=== PATIENT | male | born 1975 | race Caucasian/White ===

== ENCOUNTER 2021-03-15 19:27 | Outpatient (REF) | payer OTHER, SELFPAY ==
[2021-03-17 17:19] LABS: COVID-19 RT-PCR UVMMC Result Negative (Negative)
== END 2021-03-15 19:28 | disposition home or self-care (01) ==
LOC: LBN 19:27
PROVIDERS: PCP Family Medicine; Visit Provider Physician Assistant
DX: Z20.822 Contact with and (suspected) exposure to COVID-19 (principal)
CPT/HCPCS: U0003

== ENCOUNTER 2021-04-27 21:27 | Emergency (ER) | payer OTHER, SELFPAY ==
[2021-04-27 21:30] VITALS: BP 167/119; PULSE 111; RESP 20; TEMP 36; O2SAT 97
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
== END 2021-04-27 22:00 | disposition home or self-care (01) ==
PROVIDERS: Emergency Provider Physician Assistant; PCP Family Medicine
DX: S81.011A Laceration without foreign body, right knee, initial encounter (principal); W22.8XXA Striking against or struck by other objects, initial encounter
CPT/HCPCS: 99283

== ENCOUNTER 2021-05-01 11:16 | Outpatient (REF) | payer OTHER, SELFPAY | END 2021-05-01 11:17 | disposition home or self-care (01) | LOC: LBN 11:16 | PROVIDERS: PCP Family Medicine; Visit Provider Nurse Practitioner | DX: S81.811A Laceration without foreign body, right lower leg, initial encounter (principal); X58.XXXA Exposure to other specified factors, initial encounter | CPT/HCPCS: 87070; 87205 ==

== ENCOUNTER 2021-08-22 17:56 | Emergency (ER) | payer BC, SELFPAY ==
[2021-08-22 18:00] VITALS: BP 157/106; PULSE 99; RESP 16; TEMP 36.6; O2SAT 98
--- NOTE | 2021-08-22 18:19 | W.ED.GENAD ---
Discharge Plan Disposition Patient Disposition: HOME Condition: Improving Discharge Details Clinical Impression: Pain, dental Primary Care Provider: Celeste Christiansen ED Provider: Addison Vasquez Home Meds and New Rx's Prescriptions: Continued doxepin 10 mg capsule 10 mg PO QHS Qty: 90 3RF albuterol sulfate [Proventil HFA] 90 mcg/actuation HFA aerosol inhaler 2 puff IH Q6H PRN (Reason: shortness of breath or wheezing) Qty: 18 12RF bupropion HCl 150 mg tablet sustained-release 12 hr 150 mg PO BID Qty: 180 3RF buspirone 10 mg tablet 20 mg PO TID Qty: 540 3RF melatonin 1 mg Tablet 2 mg PO .QHS 0RF trazodone 50 mg tablet 12.5 mg PO DAILY 0RF Discharge Instructions Instructions: Toothache (ED) Additional Instructions: Please follow-up with your dentist otherwise attempt to make an appointment at [facility] phone number [phone], located at [address] [place] [address]; return to the emergency department if you develop severe swelling to your gumline, fevers chills or pus drainage from the mouth. Continue with Motrin Tylenol at home. Medical Decision Making 46-year-old male presents with atraumatic dental pain to tooth #1, right upper molar, over the past several days, nontoxic afebrile no evidence of periapical abscess or tooth fracture, likely small dental carry versus receding gingiva. Patient tolerating secretions normal voice nontoxic. Will attempt to find him a dental referral encouraged him to follow with his dentist at first availability. Will perform periapical block with bupivacaine for comfort this evening, 1 dose of Percocet here in the emergency department with Zofran encourage patient to use Motrin Tylenol at home. Return precautions given for signs of infection. 18: 32 patient resting comfortably no acute distress. Periapical block with approximately 3 cc of 0.5% bupivacaine. Home care instructions and return precautions given. HPI General Date/Time Provider Initiated Documentation: 08/22/21 18:08. HPI Narrative: 46-year-old male presents with several days of right upper molar discomfort, tenderness to palpation of the tooth and with chewing, denies ear or jaw pain. Denies fevers chills or swelling to the gumline. Has been trying to get into see his dentist Related Data Home Medications Medication Instructions Recorded Confirmed albuterol sulfate 90 mcg/actuation 2 puff IH Q6H PRN #18 gm 05/01/21 08/22/21 aerosol inhaler (Proventil HFA) doxepin 10 mg capsule 10 mg PO QHS #90 cap 05/01/21 08/22/21 bupropion HCl 150 mg tablet,12 hr 150 mg PO BID #180 tab 07/04/21 08/22/21 sustained-release buspirone 10 mg tablet 20 mg PO TID #540 tab 07/04/21 08/08/21 melatonin 1 mg tablet 2 mg PO .QHS 08/22/21 08/22/21 trazodone 50 mg tablet 12.5 mg PO DAILY 08/22/21 08/22/21 Previous Rx's Medication Instructions Recorded albuterol sulfate 90 mcg/actuation 2 puff IH Q6H PRN #18 gm 05/01/21 aerosol inhaler (Proventil HFA) doxepin 10 mg capsule 10 mg PO QHS #90 cap 05/01/21 bupropion HCl 150 mg tablet,12 hr 150 mg PO BID #180 tab 07/04/21 sustained-release buspirone 10 mg tablet 20 mg PO TID #540 tab 07/04/21 Allergies Allergy/AdvReac Type Severity Reaction Status Date / Time No Known Drug Allergies Allergy Verified 08/22/21 18:04 General Stated Complaint: DentalOral TANG: 4 Review of Systems Narrative: Review of Systems Constitutional: negative Eyes: negative ENT: Right upper molar pain Cardiovascular: negative Respiratory: negative Gastrointestinal: negative : negative Musculoskeletal: negative Skin: negative Neurologic: negative Psych: negative PFSH All Active Problems (Updated 08/22/21 @ 18:34 by Addison Vasquez MD) Pain, dental (Acute) Laceration (Acute) Cubital tunnel syndrome (Acute) Asthma (Chronic) Tobacco use disorder, continuous (Acute 06/17/17) Substance abuse (Acute 05/15/17) MICHELLE (generalized anxiety disorder) (Acute 05/15/17) Family history of breast cancer (Acute 06/04/17) Mother Essential hypertension (Acute 05/15/17) ETOH abuse (Acute 05/15/17) [facility] [place] 11/29/15-12/04/15 Attention deficit disorder (Acute 05/15/17) Medical History Alcohol dependence Alcohol use disorder Asthma Attention deficit disorder (ADD) in adult Cubital tunnel syndrome Family History Mother Depression Neoplasm Breast Father Alcohol abuse Essential hypertension Heart disease Brother Alcohol abuse Social History (Updated 08/08/21 @ 13:05 by Mariza Maldonado RN) Smoking/Tobacco Use Status: Current every day Tobacco Type: cigarettes and smokeless tobacco Tobacco: How many years used: 30 Smokeless tobacco user: chewing tobacco Quit status: considering quitting Smoking risk assessment performed?: Yes Alcohol Intake: current Alcohol Intake frequency: 0-2 drinks per day Alcohol type: beer Drug use: Occasionally Substance use type: marijuana Household members: significant other Housing: apartment Number of Children: 1 Communication Needs: None current occupation: [employer] Pets and animals: Yes Sexually active: Yes Do you think of yourself as: straight/heterosexual Current gender identity: male What is your relationship status?: living with partner Panel score (0-1 are the most socially isolated patients): 1 What type of physical activity do you participate in: other Details: Work Frequency: 5-6 times per week Seatbelt use: always Helmet use: Yes Helmet use: always Drive intox or ride w/intox local bulk driver: No Working smoke detector in home: Yes Fire extinguisher in home: Yes Carbon monox detector in home: Yes Do you feel safe at home: Yes Do you feel safe in your relationship?: Yes Exam Narrative Exam Narrative: Physical Examination General: alert, awake, cooperative, resting comfortably, no acute distress HEENT: Possible dental carry tooth #1, some receding gingiva at base of tooth, no periapical abscess or fracture noted; normocephalic, atraumatic; PERRL, EOM intact, conjunctiva normal; no nasal discharge; moist mucous membranes, oral and pharyngeal mucosa normal, tolerating secretions Neck: supple, trachea midline; full ROM Chest: normal to inspection Respiratory: normal respiratory effort, speaking in full sentences, clear to auscultation, no wheezing, rales or rhonchi Cardiac: regular rate, regular rhythm, S1S2 intact, no murmurs rubs or gallops GI: abdomen soft, non-tender, non-distended; no palpable mass or hepatosplenomegaly : Back: Skin: no lesions, rashes or trauma appreciated Neuro: AAOx3, normal speech, moving all extremities Extremities: Psych: Appropriate mood and affect Course Vital Signs Vital signs: Vital Signs Temperature 36.6 C 08/22/21 18:00 Pulse 99 H 08/22/21 18:00 Respiratory Rate 16 08/22/21 18:00 Blood Pressure 157/106 H 08/22/21 18:00 Pulse Oximetry 98 08/22/21 18:00 Temperature 36.6 C 08/22/21 18:00 Temperature Source Skin 08/22/21 18:00 Pulse 99 H 08/22/21 18:00 Respiratory Rate 16 08/22/21 18:00 Respiratory Effort 08/22/21 18:00 Blood Pressure 157/106 H 08/22/21 18:00 Blood Pressure Position Sitting 08/22/21 18:00 Pulse Oximetry 98 08/22/21 18:00 Oxygen Delivery Method Room Air 08/22/21 18:00 Oxygen Flow Rate 0 08/22/21 18:00 Pain Level 7 08/22/21 18:13 PAWSS Have you Been Recently Intoxicated or Drunk Within the Last 30 days?: Yes Have you Ever Experienced Previous Episodes of Alcohol Withdrawal?: Yes Have you ever Experienced Withdrawal Seizures?: No Have you ever Experienced Delirium Tremens(DT)s?: No Have you ever undergone Alcohol Rehabilitation Treatment (i.e, inpt ot outpatient treatment programs)?: Yes Have you ever Experienced Blackouts?: No Have you ever Combined Alcohol with other Downers within the last 90 days?: No Have you ever Combined Alcohol with any other Substance of Abuse during the last 90 days?: No Positive Blood Alcohol level on Presentation? [PCS.BAL]: No Evidence of Increased Autonomic Activity (i.e. HR>120, tremor, sweating, agitation, nausea)?: No Result: 3
[2021-08-22] MEDS: Bupivacaine 0.5% Pres-Free 30 ML VIAL (18:30)
== END 2021-08-22 18:41 | disposition home or self-care (01) ==
PROVIDERS: Emergency Provider Emergency Medicine; PCP Nurse Practitioner
DX: K08.89 Other specified disorders of teeth and supporting structures (principal)
CPT/HCPCS: 64400

== ENCOUNTER 2021-08-23 19:14 | Emergency (ER) | payer BC, SELFPAY ==
[2021-08-23 19:25] VITALS: BP 157/111; PULSE 105; RESP 20; TEMP 36.9; O2SAT 97
--- NOTE | 2021-08-23 19:56 | ED.GENADUL_ITS ---
Discharge Plan Disposition Patient Disposition: HOME Condition: Stable Discharge Details Clinical Impression: Dental infection Primary Care Provider: Celeste Christiansen ED Provider: Sunny Balderas Home Meds and New Rx's Prescriptions: New amoxicillin-pot clavulanate 875-125 mg tablet 1 tab PO BID Qty: 14 0RF Continued doxepin 10 mg capsule 10 mg PO QHS Qty: 90 3RF albuterol sulfate [Proventil HFA] 90 mcg/actuation HFA aerosol inhaler 2 puff IH Q6H PRN (Reason: shortness of breath or wheezing) Qty: 18 12RF bupropion HCl 150 mg tablet sustained-release 12 hr 150 mg PO BID Qty: 180 3RF buspirone 10 mg tablet 20 mg PO TID Qty: 540 3RF melatonin 1 mg Tablet 2 mg PO .QHS 0RF trazodone 50 mg tablet 12.5 mg PO DAILY 0RF Discharge Instructions Instructions: Dental Abscess (ED) Additional Instructions: It is very important that you keep your appointment with your dental provider for definitive care of your dental complaint. Please take antibiotic as prescribed and for the full course. It is also recommended that you take a probiotic at least 2 hours after your morning antibiotic dose and take this for the next 30 days. If you have any significant worsening of your condition or change in your condition feel free to return to the emergency department for reassessment. Discharge Data Discharge Date/Time-TO BE ENTERED AT DEPARTURE: 08/23/21 20:16 Medical Decision Making Physical exam shows slight erythema to the base of right upper molars. Patient also has tenderness to the gumline. And patient now stating that molar feels loose and hurts significantly when he takes bites. I feel that this may represent an early abscess given the patient state intermittent pain and discomfort that has been more persistent over the last couple days and specifically worsening in the last 24 hours. Given noted erythema, feeling of loose tooth with significant pain on biting, and tenderness to the gumline I do feel that patient would benefit from antibiotics. Did discuss with patient potential that this is more nerve pain compared to early infection and that he needs definitive dental care to resolve his issue. Patient was placed upon antibiotics after discussion. After discussion of diagnosis and plan of care patient has no further needs, questions, or concerns and states clear understanding to return to the emergency department for any worsening symptoms. HPI General Mode of arrival: ambulatory . Date/Time Provider Initiated Documentation: 08/23/21 19:34 . Limitations to Documentation: no limitations . Information obtained by: patient . History of Present Illness 46 year old M presents to the emergency department with the chief complaint of dental pain, described as severe, with intensity rated at 9. Quality is described as sharp, and is localized to the mouth. Patient reports no radiation. Patient started experiencing this day(s) and it has been constant and intermittent. improves with No relieving factors improve symptom(s), No exacerbating factors reported . Patient notes no other symptoms.. Patient did receive the following treatments prior to arrival, NSAID Related Data Home Medications Medication Instructions Recorded Confirmed albuterol sulfate 90 mcg/actuation 2 puff IH Q6H PRN #18 gm 05/01/21 08/22/21 aerosol inhaler (Proventil HFA) doxepin 10 mg capsule 10 mg PO QHS #90 cap 05/01/21 08/22/21 bupropion HCl 150 mg tablet,12 hr 150 mg PO BID #180 tab 07/04/21 08/22/21 sustained-release buspirone 10 mg tablet 20 mg PO TID #540 tab 07/04/21 08/08/21 melatonin 1 mg tablet 2 mg PO .QHS 08/22/21 08/22/21 trazodone 50 mg tablet 12.5 mg PO DAILY 08/22/21 08/22/21 amoxicillin 875 mg-potassium 1 tab PO BID #14 tab 08/23/21 clavulanate 125 mg tablet Previous Rx's Medication Instructions Recorded albuterol sulfate 90 mcg/actuation 2 puff IH Q6H PRN #18 gm 05/01/21 aerosol inhaler (Proventil HFA) doxepin 10 mg capsule 10 mg PO QHS #90 cap 05/01/21 bupropion HCl 150 mg tablet,12 hr 150 mg PO BID #180 tab 07/04/21 sustained-release buspirone 10 mg tablet 20 mg PO TID #540 tab 07/04/21 amoxicillin 875 mg-potassium 1 tab PO BID #14 tab 08/23/21 clavulanate 125 mg tablet Allergies Allergy/AdvReac Type Severity Reaction Status Date / Time No Known Drug Allergies Allergy Verified 08/22/21 18:04 General Stated Complaint: DentalOral TANG: 4 Review of Systems Constitutional Constitutional: Denies chills and Denies fever(s) ENT Ears, Nose, Mouth, and Throat: Reports as per HPI, Denies change in voice, Reports dental pain, Denies dysphagia, Denies throat swelling and Denies tongue swelling Cardiovascular Cardiovascular: Denies chest pain and Denies dyspnea Respiratory Respiratory: Denies dyspnea, Denies stridor and Denies wheezing Gastrointestinal Gastrointestinal: Denies abdominal pain, Denies dysphagia, Denies nausea and Denies vomiting Integumentary/Breasts Skin/Breast: Denies rash Allergic/Immunologic Allergic/Immunologic: Denies throat swelling, Denies tongue swelling and Denies wheezing PFSH All Active Problems Pain, dental (Acute) Dental infection (Acute) Laceration (Acute) Cubital tunnel syndrome (Acute) Asthma (Chronic) Tobacco use disorder, continuous (Acute 06/17/17) Substance abuse (Acute 05/15/17) MICHELLE (generalized anxiety disorder) (Acute 05/15/17) Family history of breast cancer (Acute 06/04/17) Mother Essential hypertension (Acute 05/15/17) ETOH abuse (Acute 05/15/17) [place] 11/29/15-12/04/15 Attention deficit disorder (Acute 05/15/17) Medical History Alcohol dependence Alcohol use disorder Attention deficit disorder (ADD) in adult Family History Mother Depression Neoplasm Breast Father Alcohol abuse Essential hypertension Heart disease Brother Alcohol abuse Social History Smoking/Tobacco Use Status: Current every day Tobacco Type: cigarettes and smokeless tobacco Tobacco: How many years used: 30 Smokeless tobacco user: chewing tobacco Quit status: considering quitting Smoking risk assessment performed?: Yes Alcohol Intake: current Alcohol Intake frequency: 0-2 drinks per day Alcohol type: beer Drug use: Occasionally Substance use type: marijuana Household members: significant other Housing: apartment Number of Children: 1 Communication Needs: None current occupation: [employer] Pets and animals: Yes Sexually active: Yes Do you think of yourself as: straight/heterosexual Current gender identity: male What is your relationship status?: living with partner Panel score (0-1 are the most socially isolated patients): 1 What type of physical activity do you participate in: other Details: Work Frequency: 5-6 times per week Seatbelt use: always Helmet use: Yes Helmet use: always 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 Working smoke detector in home: Yes Fire extinguisher in home: Yes Carbon monox detector in home: Yes Do you feel safe at home: Yes Do you feel safe in your relationship?: Yes Exam Const General: cooperative Orientation: alert, awake and oriented x3 Limitations: mental status not altered [facility] Head: normal to inspection, normocephalic and atraumatic Ears: hearing grossly normal bilaterally, normal mastoids bilaterally and no periauricular adenopathy General nose exam: external nose normal Mouth: oropharynx normal, no drooling, no muffled voice, normal tongue and no trismus Teeth and gingiva: gingiva abnormal tender (and erythema around r upper molars) Throat: posterior oropharynx normal, tonsils normal and uvula midline Eyes General: appearance normal, both eyes and all related structures Pupils: PERRL Neck Neck: normal visual inspection, full ROM, no meningeal signs, trachea midline, no anterior neck swelling and no midline deformity Resp Effort & Inspection: normal respiratory effort and able to speak in complete sentences Course Vital Signs Vital signs: Vital Signs Temperature 36.9 C 08/23/21 19:25 Pulse 105 H 08/23/21 19:25 Respiratory Rate 20 08/23/21 19:25 Blood Pressure 157/111 H 08/23/21 19:25 Pulse Oximetry 97 08/23/21 19:25 Temperature 36.9 C 08/23/21 19:25 Temperature Source Temporal Artery Scan 08/23/21 19:25 Pulse 105 H 08/23/21 19:25 Respiratory Rate 20 08/23/21 19:25 Respiratory Effort 08/23/21 19:40 Blood Pressure 157/111 H 08/23/21 19:25 Blood Pressure Position Sitting 08/23/21 19:25 Pulse Oximetry 97 08/23/21 19:25 Oxygen Delivery Method Room Air 08/23/21 19:25 Oxygen Flow Rate 0 08/23/21 19:25 Pain Level 8 08/23/21 19:43 PAWSS Have you Been Recently Intoxicated or Drunk Within the Last 30 days?: No Have you Ever Experienced Previous Episodes of Alcohol Withdrawal?: No Have you ever Experienced Withdrawal Seizures?: No Have you ever Experienced Delirium Tremens(DT)s?: No Have you ever undergone Alcohol Rehabilitation Treatment (i.e, inpt ot out patient treatment programs)?: No Have you ever Experienced Blackouts?: No Have you ever Combined Alcohol with other Downers within the last 90 days?: No Have you ever Combined Alcohol with any other Substance of Abuse during the last 90 days?: No Positive Blood Alcohol level on Presentation? [PCS.BAL]: No Evidence of Increased Autonomic Activity (i.e. HR>120, tremor, sweating, agitation, nausea)?: No Result: 0
[2021-08-23] MEDS: oxyCODONE 5 mg/Acetaminophen 325 mg TAB 1 TAB PO (20:04)
[2021-08-23] MEDS: Amoxicillin 875/Clav. 125 TAB PO (20:04)
[2021-08-23 20:14] VITALS: BP 137/86; PULSE 91; RESP 20; O2SAT 99
== END 2021-08-23 20:16 | disposition home or self-care (01) ==
PROVIDERS: Emergency Provider Nurse Practitioner Family; PCP Nurse Practitioner
DX: K04.7 Periapical abscess without sinus (principal)
CPT/HCPCS: 99283

== ENCOUNTER 2022-01-28 09:25 | Inpatient (IN) | payer BC, SELFPAY ==
[2022-01-28] VITALS (67 sets, daily range): BP systolic 128–181; BP diastolic 79–110; PULSE 91–148; RESP 9–33; TEMP 36.6–38; TEMPC 38; O2SAT 92–99; BMI 25.9
--- NOTE | 2022-01-28 09:54 | ED.GENADUL_ITS ---
Discharge Plan Disposition Patient Disposition: [facility] INPATIENT Condition: Good Discharge Details Chief Complaint: GI Bleed Clinical Impression: GI bleed Admit Date/Time: 01/28/22 10:37 Admit Provider: Rom Martin Attending Provider: Rom Martin Primary Care Provider: Celeste Christiansen ED Provider: Nakita Rouse Discharge Instructions Activity:: Activity as Tolerated Equipment/Supplies:: No Equipment Needed Diet:: As Tolerated Discharge Orders Discharge Orders: Discharge Order (Routine); Ordered 01/30/22 Ordered By: Rom Martin Discharge Data Discharge Date/Time-TO BE ENTERED AT DEPARTURE: 01/28/22 11:26 Medical Decision Making Cristobal Li is a 46-year-old man with a history of anxiety disorder, hypertension, alcohol use disorder, ADD, current smoker, asthma presenting to emergency department with rectal bleeding. Patient reports that since 01/25/2022 patient has had dark mucousy stools in addition to some bright red blood per rectum. Patient states that he has never had rectal bleeding or dark stools in the past. Patient reports that he drinks at least 6 shots of vodka or other hard alcohol a day, and has done so for approximately 6 months. Patient reports that for several months he vomits almost every morning, clear emesis. Patient reports that vomiting has continued since onset of rectal bleeding, emesis continues to be clear, no bright red blood or dark/coffee-ground emesis. He denies any other bleeding. Patient reports that he has some mild cramping upper abdominal pain at times, otherwise denies any pain. Reports chronic cough patient reports that he is a smoker and uses chewing tobacco. Denies shortness of breath, constipation, fever, numbness, weakness, rash. Reports occasional ibuprofen use, no aspirin use, no blood thinners. On exam patient is well and nontoxic-appearing. Initially walking about the emergency department without issue. Tachycardic. Mild epigastric tenderness palpation. Small amount of melena on rectal exam (Hemoccult positive) concern for likely upper GI bleed, dehydration, metabolic/lyte derangement, possible lower GI bleed, other. Exam/history at this time is not consistent with sepsis, appendicitis, acute coronary syndrome, mesenteric ischemia. Plan for 18-gauge IV x2, saline bolus, screening labs, telemetry, IV octreotide, IV bolus and infusion of pantoprazole. Will continue to monitor, low threshold for uncrossed blood transfusion. Labs reviewed, hemoglobin 10.6 from 14.3 2016. Heart rate 115. Blood pressure 170/99. No bowel movements, no vomiting since arriving to the emergency department. I discussed patient presentation results with Dr. Martin of surgery, who requested that patient be admitted to him, will perform endoscopy today. Discussed plan with patient, who is amenable. Patient admitted to the ICU without further incident. Medical Records Medical records reviewed: Yes I reviewed the patient's medical records. Lab Data Lab results reviewed: Yes I reviewed the patient's lab results. Labs: Laboratory Tests Range/Units 01/28/22 01/28/22 01/28/22 09:53 10:07 10:07 WBC (4.4-10.8) 10^3/uL 14.44 H RBC (4.36-5.78) 10^6/uL 3.08 L Hgb (13.5-17.5) g/dL 10.6 L Hct (40.0-50.0) % 30.7 L MCV (80-95) fL 100 H MCH (27.0-33.0) pg 34.4 H MCHC (32.0-36.0) % 34.5 RDW (11.8-14.1) % 11.9 Plt Count (130-400) 10^3/uL 298 MPV (8.0-11.0) fL 9.5 Immature Gran % 0.3 Neutrophils % 78.8 Lymphocytes % 15.4 Monocytes % 4.2 Eosinophils % 0.3 Basophils % 1.0 Nucleated RBC % (0.0-0.3) % 0.0 Absolute Neutrophils (1.2-6.7) 10^3/uL 11.38 H Absolute Lymphocytes (1.2-3.4) 10^3/uL 2.22 Absolute Monocytes (0.1-0.8) 10^3/uL 0.61 Absolute Eosinophils (0.0-0.7) 10^3/uL 0.04 Absolute Basophils (0.0-0.2) 10^3/uL 0.14 PT (9.3-11.0) sec INR (0.9-1.1) Sodium (136-145) mmol/L 136 Potassium (3.5-5.1) mmol/L 3.8 Chloride (98-107) mmol/L 101 Carbon Dioxide (21.0-32.0) mmol/L 27.8 Anion Gap (3-11) mmol/L 7.2 BUN (7-18) mg/dL 22 H Creatinine (0.70-1.30) mg/dL 1.2 Estimated GFR/1.73 m2 (mL/min/1.73m2) >= 60.00 Glucose (74-106) mg/dL 103 Calcium (8.5-10.1) mg/dL 9.0 Total Bilirubin (0.2-1.0) mg/dL 0.1 L AST (15-37) U/L 70 H ALT (16-63) U/L 86 H Alkaline Phosphatase (46-116) U/L 47 Total Protein (6.4-8.2) g/dL 6.7 Albumin (3.4-5.0) g/dL 3.2 L Lipase Cancelled 232 Patient ABO/Rh Antibody Screen Range/Units 01/28/22 01/28/22 10:07 10:07 WBC (4.4-10.8) 10^3/uL RBC (4.36-5.78) 10^6/uL Hgb (13.5-17.5) g/dL Hct (40.0-50.0) % MCV (80-95) fL MCH (27.0-33.0) pg MCHC (32.0-36.0) % RDW (11.8-14.1) % Plt Count (130-400) 10^3/uL MPV (8.0-11.0) fL Immature Gran % Neutrophils % Lymphocytes % Monocytes % Eosinophils % Basophils % Nucleated RBC % (0.0-0.3) % Absolute Neutrophils (1.2-6.7) 10^3/uL Absolute Lymphocytes (1.2-3.4) 10^3/uL Absolute Monocytes (0.1-0.8) 10^3/uL Absolute Eosinophils (0.0-0.7) 10^3/uL Absolute Basophils (0.0-0.2) 10^3/uL PT (9.3-11.0) sec 9.2 L INR (0.9-1.1) 0.9 Sodium (136-145) mmol/L Potassium (3.5-5.1) mmol/L Chloride (98-107) mmol/L Carbon Dioxide (21.0-32.0) mmol/L Anion Gap (3-11) mmol/L BUN (7-18) mg/dL Creatinine (0.70-1.30) mg/dL Estimated GFR/1.73 m2 (mL/min/1.73m2) Glucose (74-106) mg/dL Calcium (8.5-10.1) mg/dL Total Bilirubin (0.2-1.0) mg/dL AST (15-37) U/L ALT (16-63) U/L Alkaline Phosphatase (46-116) U/L Total Protein (6.4-8.2) g/dL Albumin (3.4-5.0) g/dL Lipase Patient ABO/Rh A Positive Antibody Screen NEGATIVE HPI General Mode of arrival: ambulatory . Date/Time Provider Initiated Documentation: 01/28/22 09:43 . Limitations to Documentation: no limitations . Information obtained by: patient, RN notes reviewed and old records reviewed . HPI Narrative: Cristobal Li is a 46-year-old man with a history of anxiety disorder, hypertension, alcohol use disorder, ADD, current smoker, asthma presenting to emergency department with rectal bleeding. Patient reports that since 01/25/2022 patient has had dark mucousy stools in addition to some bright red blood per rectum. Patient states that he has never had rectal bleeding or dark stools in the past. Patient reports that he drinks at least 6 shots of vodka or other hard alcohol a day, and has done so for approximately 6 months. Patient reports that for several months he vomits almost every morning, clear emesis. Patient reports that vomiting has continued since onset of rectal bleeding, emesis cont inues to be clear, no bright red blood or dark/coffee-ground emesis. He denies any other bleeding. Patient reports that he has some mild cramping upper abdominal pain at times, otherwise denies any pain. Reports chronic cough patient reports that he is a smoker and uses chewing tobacco. Denies shortness of breath, constipation, fever, numbness, weakness, rash. Reports occasional ibuprofen use, no aspirin use, no blood thinners. Related Data Home Medications Medication Instructions Recorded Confirmed albuterol sulfate 90 mcg/actuation 2 puff inhalation Q6H PRN 05/01/21 01/28/22 aerosol inhaler (Proventil HFA) shortness of breath or wheezing #18 grams bupropion HCl 150 mg tablet,12 hr 150 mg PO BID #180 tabs 07/04/21 01/28/22 sustained-release buspirone 10 mg tablet 20 mg PO TID #540 tabs 07/04/21 01/28/22 melatonin 1 mg tablet 2 mg PO .QHS 08/22/21 01/28/22 bupropion HCl 150 mg tablet,12 hr 150 mg PO BID #60 tabs 01/30/22 sustained-release buspirone 5 mg tablet 20 mg PO TID #90 tabs 01/30/22 chlordiazepoxide HCl 10 mg capsule 10 mg PO Q6H #8 caps 01/30/22 chlordiazepoxide HCl 25 mg capsule 25 mg PO Q6H etoh withdraw #8 caps 01/30/22 chlordiazepoxide HCl 5 mg capsule 5 mg PO Q6H PRN #4 caps 01/30/22 Previous Rx's Medication Instructions Recorded albuterol sulfate 90 mcg/actuation 2 puff inhalation Q6H PRN 05/01/21 aerosol inhaler (Proventil HFA) shortness of breath or wheezing #18 grams bupropion HCl 150 mg tablet,12 hr 150 mg PO BID #180 tabs 07/04/21 sustained-release buspirone 10 mg tablet 20 mg PO TID #540 tabs 07/04/21 bupropion HCl 150 mg tablet,12 hr 150 mg PO BID #60 tabs 01/30/22 sustained-release buspirone 5 mg tablet 20 mg PO TID #90 tabs 01/30/22 chlordiazepoxide HCl 10 mg capsule 10 mg PO Q6H #8 caps 01/30/22 chlordiazepoxide HCl 25 mg capsule 25 mg PO Q6H etoh withdraw #8 caps 01/30/22 chlordiazepoxide HCl 5 mg capsule 5 mg PO Q6H PRN #4 caps 01/30/22 Allergies Allergy/AdvReac Type Severity Reaction Status Date / Time No Known Drug Allergies Allergy Verified 01/28/22 09:38 General Stated Complaint: GI Bleed TANG: 3 Review of Systems Narrative: Constitutional: denies fevers Eyes: denies eye pain ENT: denies ear pain, dental pain, sore throat Cardiovascular: denies chest pain Respiratory: denies SOB, cough GI: Reports abdominal pain, vomiting, diarrhea, melena, hematochezia, denies hematemesis : denies flank pain MSK: denies back pain, neck pain, arthralgias, myalgias Skin: denies rash Neuro: denies headaches, numbness, weakness PFSH All Active Problems (Updated 02/04/22 @ 13:40 by Nakita Rouse MD) GI bleed (Chronic) Acute anemia (Acute) Alcohol withdrawal (Acute) Laceration (Acute) Cubital tunnel syndrome (Acute) Asthma (Chronic) Tobacco use disorder, continuous (Acute 06/17/17) Substance abuse (Acute 05/15/17) MICHELLE (generalized anxiety disorder) (Acute 05/15/17) Family history of breast cancer (Acute 06/04/17) Mother Essential hypertension (Acute 05/15/17) Attention deficit disorder (Acute 05/15/17) Medical History Alcohol dependence Alcohol use disorder Attention deficit disorder (ADD) in adult Family History Mother Depression Neoplasm Breast Father Alcohol abuse Essential hypertension Heart disease Brother Alcohol abuse Social History Smoking/Tobacco Use Status: Current every day Tobacco Type: cigarettes and smokeless tobacco Tobacco: How many years used: 30 Smokeless tobacco user: chewing tobacco Quit status: considering quitting Smoking risk assessment performed?: Yes Alcohol Intake: current Alcohol Intake frequency: 3 or more drinks per day Alcohol type: beer and hard liquor Drug use: Occasionally Substance use type: marijuana Household members: significant other Housing: apartment Number of Children: 1 Communication Needs: None current occupation: [employer] Pets and animals: Yes Sexually active: Yes Do you think of yourself as: straight/heterosexual Current gender identity: male What is your relationship status?: living with partner Panel score (0-1 are the most socially isolated patients): 1 What type of physical activity do you participate in: other Details: Work Frequency: 5-6 times per week Seatbelt use: always Helmet use: Yes Helmet use: always 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 Working smoke detector in home: Yes Fire extinguisher in home: Yes Carbon monox detector in home: Yes Do you feel safe at home: Yes Do you feel safe in your relationship?: Yes Exam Narrative Exam Narrative: Constitutional: well and [id number], pleasant, conversing normally HENT: head atraumatic/normocephalic/normal inspection, mucous membranes moist Eyes: conjunctiva normal, sclera normal, pupils 3mm b/l Neck: no stridor, normal ROM, trachea midline Resp: normal work of breathing, speaking in full sentences Cardio: Tachycardic rate, normal rhythm GI: abdomen soft, mild epigastric tenderness to palpation, no rebound, no guarding, non-distended, external rectal exam normal, small amount of stool with appearance of melena on rectal exam, Hemoccult positive, no bright red blood Back: normal inspection, no rash Skin: warm, dry, normal color, no rash Neuro: alert, not altered, grossly non-focal, normal tone, normal gait Ext: no edema, moving all extremities equally Psych: normal mood, normal affect, normal behavior Course Vital Signs Vital signs: Vital Signs Temperature 37.0 C 01/28/22 09:35 Pulse 123 H 01/28/22 09:35 Respiratory Rate 14 01/28/22 09:35 Blood Pressure 167/103 H 01/28/22 09:35 Pulse Oximetry 98 01/28/22 09:35 Temperature 37.0 C 01/28/22 09:35 Temperature Source Temporal Artery Scan 01/28/22 09:35 Pulse 123 H 01/28/22 09:35 Respiratory Rate 14 01/28/22 09:35 Respiratory Effort Non-Labored 01/28/22 09:39 Blood Pressure 167/103 H 01/28/22 09:35 Blood Pressure Position Sitting 01/28/22 09:35 Pulse Oximetry 98 01/28/22 09:35 Oxygen Delivery Method Room Air 01/28/22 09:35 Oxygen Flow Rate 0 01/28/22 09:35 Pain Level 6 01/28/22 09:35 PAWSS Have you Been Recently Intoxicated or Drunk Within the Last 30 days?: Yes Have you Ever Experienced Previous Episodes of Alcohol Withdrawal?: Yes Have you ever Experienced Withdrawal Seizures?: No Have you ever Experienced Delirium Tremens(DT)s?: No Have you ever undergone Alcohol Rehabilitation Treatment (i.e, inpt ot outpatient treatment programs)?: Yes Have you ever Experienced Blackouts?: Yes Have you ever Combined Alcohol with other Downers within the last 90 days?: No Have you ever Combined Alcohol with any other Substance of Abuse during the last 90 days?: No Positive Blood Alcohol level on Presentation? [PCS.BAL]: No Evidence of Increased Autonomic Activity (i.e. HR>120, tremor, sweating, agitation, nausea)?: No Result: 4
[2022-01-28] MEDS: Octreotide 100 MCG/ML VIAL 50 MCG IVP (10:15)
[2022-01-28] MEDS: Pantoprazole 40 MG VIAL 80 MG IVP (10:16)
[2022-01-28] MEDS: Normal Saline 1,000 ML 1000 ML IV (10:17)
[2022-01-28 10:19] LABS: Abs Immature Grans 0.05 10^3/uL (0.0-0.06); Absolute Basophil Count 0.14 10^3/uL (0.0-0.2); Absolute Eosinophil Count 0.04 10^3/uL (0.0-0.7); Absolute Lymphocyte Count 2.22 10^3/uL (1.2-3.4); Absolute Monocyte Count 0.61 10^3/uL (0.1-0.8); Absolute Neutrophil Count 11.38 10^3/uL (1.2-6.7); Eosinophils % 0.3; HCT 30.7 % (40.0-50.0); HGB 10.6 g/dL (13.5-17.5); Immature Grans % 0.3; Lymphocytes % 15.4; MCH 34.4 pg (27.0-33.0); MCHC 34.5 % (32.0-36.0); MCV 100 fL (80-95); MPV 9.5 fL (8.0-11.0); Monocytes % 4.2; Neutrophils % 78.8; Platelet Count 298 10^3/uL (130-400); RBC 3.08 10^6/uL (4.36-5.78); RDW 11.9 % (11.8-14.1); RDW-SD 42.9 fL; WBC 14.44 10^3/uL (4.4-10.8)
[2022-01-28 10:34] LABS: INR 0.9 (0.9-1.1); Prothrombin Time 9.2 sec (9.3-11.0)
[2022-01-28 10:38] LABS: ALT 86 U/L (16-63); AST 70 U/L (15-37); Albumin 3.2 g/dL (3.4-5.0); Alkaline Phosphatase 47 U/L (46-116); Anion Gap 7.2 mmol/L (3-11); BUN 22 mg/dL (7-18); Bilirubin, Total 0.1 mg/dL (0.2-1.0); CO2 27.8 mmol/L (21.0-32.0); CREATININE 1.2 mg/dL (0.70-1.30); Chloride 101 mmol/L (98-107); Glucose 103 mg/dL (74-106); Lipase 232 U/L (73-393); Potassium 3.8 mmol/L (3.5-5.1); Sodium 136 mmol/L (136-145); Total Protein 6.7 g/dL (6.4-8.2)
[2022-01-28 10:45] LABS: Source Nasal/Nares
[2022-01-28] MEDS: PANTOPRAZOLE 80 MG in Normal Saline 100 ML 10 MG IV ×2 (10:52→19:59)
[2022-01-28 11:36] LABS: COVID-19 PCR Negative (Negative)
[2022-01-28] MEDS: Lactated Ringers 1,000 ML 1000 ML IV (12:03)
[2022-01-28] MEDS: Ondansetron 4 MG/2 ML VIAL IVP (12:03)
[2022-01-28] MEDS: Metoclopramide 10 MG/2 ML VIAL IVP (12:03)
[2022-01-28 12:22] LABS: ALT 72 U/L (16-63); AST 55 U/L (15-37); Albumin 2.8 g/dL (3.4-5.0); Alkaline Phosphatase 43 U/L (46-116); Anion Gap 6.6 mmol/L (3-11); BUN 20 mg/dL (7-18); Bilirubin, Total 0.2 mg/dL (0.2-1.0); CO2 25.4 mmol/L (21.0-32.0); CREATININE 1.1 mg/dL (0.70-1.30); Calcium 8.1 mg/dL (8.5-10.1); Chloride 104 mmol/L (98-107); Glucose 86 mg/dL (74-106); Magnesium 1.6 mg/dL (1.8-2.4); Sodium 136 mmol/L (136-145); Total Protein 5.8 g/dL (6.4-8.2); Troponin I < 50 ng/L (<or=60)
--- NOTE | 2022-01-28 13:45 | ANES.PREOP_ITS ---
General Info Date of Service Date Performed: 01/28/22 Height: 5 ft 9 in Weight: 79.9 kg Body Mass Index (BMI): 25.9 Surgical Procedure: Operation Date: 01/28/22 14:35 Proposed Procedure Side Surgeon p Gastroscopy Rom Martin MD Meds Allergies and Home Medications Allergies Allergy/AdvReac Type Severity Reaction Status Date / Time No Known Drug Allergies Allergy Verified 01/28/22 09:38 Home Medication Medication Instructions Recorded albuterol sulfate 90 mcg/actuation 2 puff inhalation Q6H PRN 05/01/21 aerosol inhaler (Proventil HFA) shortness of breath or wheezing #18 grams bupropion HCl 150 mg tablet,12 hr 150 mg PO BID #180 tabs 07/04/21 sustained-release buspirone 10 mg tablet 20 mg PO TID #540 tabs 07/04/21 melatonin 1 mg tablet 2 mg PO .QHS 08/22/21 Current Visit Medications: Current Medications Generic Name Dose Route Start Last Admin Trade Name Freq PRN Reason Stop Dose Admin Pantoprazole Sodium 80 mg/ 100 mls @ 10 mls/hr 01/28/22 12:00 01/28/22 10:52 Sodium Chloride IV 8 mg/hr INFUSION MONALISA 10 mls/hr Administration 8 MG/HR Sodium Chloride 500 mls @ 0 mls/hr 01/28/22 10:36 Saline 500ml Bag IV PRN PRN As Directed Sodium Chloride 500 mls @ 0 mls/hr 01/28/22 11:20 Saline 500ml Bag IV PRN PRN As Directed IV Miscellaneous Supplies 1 each 01/28/22 10:00 Iv Access IV DIRECTED [facility], [facility] IV Miscellaneous Supplies 1 each 01/28/22 10:45 Iv Access IV DIRECTED FOR[facility], [facility] IV Miscellaneous Supplies 1 each 01/28/22 11:30 Iv Access IV DIRECTED FOR[facility] IV Miscellaneous Supplies 1 each 01/28/22 11:30 Iv Access IV DIRECTED FOR[facility] Ondansetron HCl 4 mg 01/28/22 11:20 Ondansetron 4 Mg/2 Ml Vial IVP Q4H PRN PRN Sodium Chloride 0 ml 01/28/22 09:48 Normal Saline Flush 10 Ml Syr IVP PRN PRN Sodium Chloride 0 ml 01/28/22 10:36 Normal Saline Flush 10 Ml Syr IVP PRN PRN Sodium Chloride 0 ml 01/28/22 11:20 Normal Saline Flush 10 Ml Syr IVP PRN PRN PFSH Active Problems Active Problems: Problem Status Onset Code Laceration Cubital tunnel syndrome G56.20 Asthma J45.909 Tobacco use disorder, continuous 06/17/17 F17.209 Substance abuse 05/15/17 F19.10 MICHELLE (generalized anxiety disorder) 05/15/17 F41.1 Family history of breast cancer 06/04/17 Z80.3 Essential hypertension 05/15/17 I10 ETOH abuse 05/15/17 F10.10 Attention deficit disorder 05/15/17 F98.8 Medical History Medical History Alcohol dependence Alcohol use disorder Attention deficit disorder (ADD) in adult Tobacco Smoking/Tobacco Use Status: Current every day Tobacco Type: cigarettes and smokeless tobacco Smokeless tobacco user: chewing tobacco Alcohol Alcohol Intake: current Alcohol intake frequency: 3 or more drinks per day Alcohol type: beer and hard liquor Substance Use Substance use: Occasionally Substance use type: marijuana Vital Signs and Lab Results Vital Signs Most Recent Vital Signs in EMR: Most Recent Vital Signs Temp Pulse Resp BP Pulse Ox 36.6 C 107 H 17 176/110 H 99 01/28/22 11:46 01/28/22 11:28 01/28/22 11:46 01/28/22 11:46 01/28/22 11:46 Lab Results Result Diagrams: 01/28/22 10:07 01/28/22 11:55 Blood Type / Crossmatch: Patient ABO/Rh A Positive 01/28/22 Antibody Screen NEGATIVE 01/28/22 Complete Blood Count: White Blood Count 14.44 10^3/uL (4.4-10.8) H 01/28/22 10:07 Red Blood Count 3.08 10^6/uL (4.36-5.78) L 01/28/22 10:07 Hemoglobin 10.6 g/dL (13.5-17.5) L 01/28/22 10:07 Hematocrit 30.7 % (40.0-50.0) L 01/28/22 10:07 Platelet Count 298 10^3/uL (130-400) 01/28/22 10:07 Complete Metabolic Panel: Sodium Level 136 mmol/L (136-145) 01/28/22 11:55 Potassium Level 4.0 mmol/L (3.5-5.1) 01/28/22 11:55 Chloride Level 104 mmol/L (98-107) 01/28/22 11:55 Carbon Dioxide Level 25.4 mmol/L (21.0-32.0) 01/28/22 11:55 Blood Urea Nitrogen 20 mg/dL (7-18) H 01/28/22 11:55 Creatinine 1.1 mg/dL (0.70-1.30) 01/28/22 11:55 Estimated GFR/1.73 m2 >= 60.00 (mL/min/1.73m2) 01/28/22 11:55 Magnesium Level 1.6 mg/dL (1.8-2.4) L 01/28/22 11:55 Calcium Level 8.1 mg/dL (8.5-10.1) L 01/28/22 11:55 Albumin 2.8 g/dL (3.4-5.0) L 01/28/22 11:55 Glucose Level 86 mg/dL (74-106) 01/28/22 11:55 Liver Function Panel: Alanine Aminotransferase (ALT/SGPT) 72 U/L (16-63) H 01/28/22 1 1:55 Aspartate Amino Transf (AST/SGOT) 55 U/L (15-37) H 01/28/22 11: 55 Coagulation Panel: INR International Normalized Ratio 0.9 (0.9-1.1) 01/28/22 10:0 7 Prothrombin Time 9.2 sec (9.3-11.0) L 01/28/22 10:07 Cardiac Panel: Troponin I < 50 ng/L (<or=60) 01/28/22 Arterial Blood Gas: No Data to Display Venous Blood Gas: No Data to Display Pancreas Panel: Lipase 232 U/L (73-393) 01/28/22 10:07 Thyroid Panel: No Data to Display Infectious Disease: Coronavirus (COVID-19)(PCR) Negative (Negative) 01/28/22 10:40 Coronavirus 2019 Source Nasal/Nares 01/28/22 10:40 Blood Cultures: No Data to Display Toxicology Panel: No Data to Display Anesthesia Assessment and Plan Anesthesia History Personal History: No History of Anesthesia Complications Family History: No Family History of Anesthesia Complications Exercise Tolerance Exercise Tolerance: Metabolic Equivalents>4 Pertinent Negatives Pertinent Negatives: No Symptoms of GERD, No Major Cardiovascular Symptoms or Complaints, No Major Pulmonary Symptoms or Complaints and No History of CVA/TIA Cardiac & Pulmonary Exam Cardiac Exam: Normal S1/S2 Heart Sounds Pulmonary Exam: Clear Bilateral Breath Sounds Implantable Cardiac Device Does patient have a Pacemaker or an ICD?: No Airway Exam Known Difficult Airway: No Mallampati Class: 3 Mouth Opening: Normal (> 3cm) Thyromental Distance: Greater than 3 cm Neck Range of Motion: Full ROM Neck Circumference: Normal Teeth Condition: Generalized Poor Dentition and Loose or Chipped Airway Comments: Bottom incisor 31 broken ASA Classification ASA Score: ASA 2 Emergency Case?: Yes NPO Status NPO Status: NPO Clears >2 hours, Solids >8 hours Anesthesia Plan Resuscitation Status: Full Code Anesthesia Technique: General Anesthesia Airway Planned: Endotracheal Tube Monitors Used: Standard Monitors
[2022-01-28 14:38] LABS: Troponin I < 50 ng/L (<or=60)
[2022-01-28] MEDS: Lactated Ringers 1,000 ML 80 ML IV (14:45)
--- NOTE | 2022-01-28 15:28 | W.ANESPOSTOP ---
Postoperative Evaluation Date, Time and Location Date Performed: 01/28/22 Time Performed: 15:20 Patient Location: Intensive Care Unit Vital Signs Most Recent Imported Vital Signs: Most Recent Vital Signs Temp Pulse Resp BP Pulse Ox 36.6 C 107 H 17 176/110 H 99 01/28/22 11:46 01/28/22 11:28 01/28/22 11:46 01/28/22 11:46 01/28/22 11:46 Most Recent Manually Entered Vital Signs: Adult Blood Pressure: 165/91 Heart Rate: 118 Respirations: 16 Oxygen Saturation (%): 96 Temperature (C): 38 C Pain Score (0-10 Scale): 0 Pain Score Most Recent Pain Score: Most Recent Pain Score Pain Level 0 01/28/22 11:46 Assessment Mental Status: Awake (Alert & Oriented to Patient Baseline) Airway and Respiratory Function: Patent airway with normal (patient baseline) respiratory exam Cardiovascular Function: Hemodynamically Stable Hydration Status: Adequately Hydrated Nausea & Vomiting: No Nausea or Vomiting Pain: Pt. Denies Any Pain Peripheral Nerve Block: Patient did not receive a nerve block
--- NOTE | 2022-01-28 16:14 | W.PM.HP.N ---
Date of service: 01/28/22 Time of Service: 12:15 Assessment and Plan Assessment and plan (1) Melena: Status: Acute Assessment and plan: Based on his tobacco and alcohol use, as well as the original history of what sounds like melena, I think he is at significant risk for gastrointestinal hemorrhage. Again, based on those symptoms, I would suspect upper gastrointestinal. Make arrangements for emergency upper endoscopy today. If that is negative, we will need to pursue a bowel prep and colonoscopy in the next day or so (2) ETOH abuse: Status: Acute Assessment and plan: I think he is at significant risk for alcohol withdrawal. We will assess with serial exams for signs and symptoms, and treat with benzodiazepine therapy as necessary History of Present Illness History of Present Illness Chief Complaint: bright red blood per rectum Narrative: Galdino's a 46-year-old male who comes into the emergency department complaining of bright red blood per rectum. He says he first noticed it several days ago when he was in his general state of health. He went to have a bowel movement, and when he finished, he noticed that it was dark with perhaps some evidence of red blood. He denied any pain. He went about his daily routine, and had several more episodes. This continued through yesterday until this morning when he noticed bright red blood in the toilet after another attempt at bowel movement. His review of systems is most significant for chronic nausea and vomiting which she says happens every morning. He denies any hematemesis. He says after his morning episode of vomiting, he has no more complaints of nausea. Review of Systems Constitutional Constitutional: Reports anorexia, Reports fatigue and Denies fever(s) Eyes Eyes: Denies blurry vision and Denies change in vision ENT Ears, Nose, Mouth, and Throat: Denies vertigo and Denies dizziness Cardiovascular Cardiovascular: Denies chest pain, Denies syncope, Reports rapid heart rate and Denies dyspnea Respiratory Respiratory: Denies chest congestion, Reports cough and Denies dyspnea Gastrointestinal Gastrointestinal: Denies abdominal pain, Reports melena, Reports hematochezia, Reports change in stool character, Denies constipation, Denies cramping, Denies dyspepsia, Denies heartburn, Denies diarrhea, Reports nausea, Reports vomiting and Denies hematemesis Musculoskeletal Musculoskeletal: Denies back pain and Denies myalgias Integumentary/Breasts Skin/Breast: Denies lesions Neurologic Neurologic: Denies confusion, Denies vertigo, Denies dizziness and Denies syncope Psychiatric Psychiatric: Reports anxiety, Denies confusion and Denies depression Endocrine Endocrine: Reports fatigue Hematologic/Lymphatic Hematologic/Lymphatic: Denies easy bleeding and Denies easy bruising PFSH All Active Problems (Updated 01/28/22 @ 16:23 by Rom Martin MD) Melena (Acute) Laceration (Acute) Cubital tunnel syndrome (Acute) Asthma (Chronic) Tobacco use disorder, continuous (Acute 06/17/17) Substance abuse (Acute 05/15/17) MICHELLE (generalized anxiety disorder) (Acute 05/15/17) Family history of breast cancer (Acute 06/04/17) Mother Essential hypertension (Acute 05/15/17) ETOH abuse (Acute 05/15/17) [place] 11/29/15-12/04/15 Attention deficit disorder (Acute 05/15/17) Medical History Alcohol dependence Alcohol use disorder Attention deficit disorder (ADD) in adult Family History Mother Depression Neoplasm Breast Father Alcohol abuse Essential hypertension Heart disease Brother Alcohol abuse Social History Smoking/Tobacco Use Status: Current every day Tobacco Type: cigarettes and smokeless tobacco Tobacco: How many years used: 30 Smokeless tobacco user: chewing tobacco Quit status: considering quitting Smoking risk assessment performed?: Yes Alcohol Intake: current Alcohol Intake frequency: 3 or more drinks per day Alcohol type: beer and hard liquor Drug use: Occasionally Substance use type: marijuana Household members: significant other Housing: apartment Number of Children: 1 Communication Needs: None current occupation: [employer] Pets and animals: Yes Sexually active: Yes Do you think of yourself as: straight/heterosexual Current gender identity: male What is your relationship status?: living with partner Panel score (0-1 are the most socially isolated patients): 1 What type of physical activity do you participate in: other Details: Work Frequency: 5-6 times per week Seatbelt use: always Helmet use: Yes Helmet use: always Drive intox or ride w/intox vibratory pile driver: No Working smoke detector in home: Yes Fire extinguisher in home: Yes Carbon monox detector in home: Yes Do you feel safe at home: Yes Do you feel safe in your relationship?: Yes Meds Allergies and Home Medications Allergies Allergy/AdvReac Type Severity Reaction Status Date / Time No Known Drug Allergies Allergy Verified 01/28/22 09:38 Home Medications Medication Instructions Recorded Confirmed Type albuterol sulfate 90 mcg/actuation 2 puff inhalation Q6H PRN 05/01/21 01/28/22 Rx aerosol inhaler (Proventil HFA) shortness of breath or wheezing #18 grams bupropion HCl 150 mg tablet,12 hr 150 mg PO BID #180 tabs 07/04/21 01/28/22 Rx sustained-release buspirone 10 mg tablet 20 mg PO TID #540 tabs 07/04/21 01/28/22 Rx melatonin 1 mg tablet 2 mg PO .QHS 08/22/21 01/28/22 History Exam Const General: cooperative, healthy appearing and anxious Orientation: alert, awake and oriented x3 Eyes General: appearance normal, both eyes and all related structures Neck Neck: supple and no lymphadenopathy noted Thyroid: thyroid normal Resp Effort & Inspection: normal respiratory effort and audible wheezes Cardio Jugular venous pressure: no JVD Heart Sounds: S1 normal and S2 normal GI Inspection: normal to inspection Palpation: not firm, no guarding, no hernias and no masses Percussion: normal to percussion Auscultation: normal bowel sounds Skin General skin exam: no rashes or lesions noted Neuro General: patient alert, patient awake and patient oriented x3 Extrem Right upper extremity: no edema Left upper extremity: no edema Right lower extremity: no edema Left lower extremity: no edema Psych Speech and Movement: restless Mood: congruent mood Affect: normal affect Results Labs Result diagrams: 01/28/22 10:07 01/28/22 11:55 Labs: Laboratory Results - last 24 hr 01/28/22 01/28/22 01/28/22 09:53 10:07 10:07 WBC 14.44 H RBC 3.08 L Hgb 10.6 L Hct 30.7 L MCV 100 H MCH 34.4 H MCHC 34.5 RDW 11.9 Plt Count 298 MPV 9.5 Immature Gran % 0.3 Neutrophils % 78.8 Lymphocytes % 15.4 Monocytes % 4.2 Eosinophils % 0.3 Basophils % 1.0 Nucleated RBC % 0.0 Absolute Neutrophils 11.38 H Absolute Lymphocytes 2.22 Absolute Monocytes 0.61 Absolute Eosinophils 0.04 Absolute Basophils 0.14 PT INR Sodium 136 Potassium 3.8 Chloride 101 Carbon Dioxide 27.8 Anion Gap 7.2 BUN 22 H Creatinine 1.2 Estimated GFR/1.73 m2 >= 60.00 Glucose 103 Calcium 9.0 Magnesium Total Bilirubin 0.1 L AST 70 H ALT 86 H Alkaline Phosphatase 47 Troponin I Total Protein 6.7 Albumin 3.2 L Lipase Cancelled 232 COVID-19 Source SARS-CoV-2 (PCR) Patient ABO/Rh Antibody Screen 01/28/22 01/28/22 01/28/22 10:07 10:07 10:40 WBC RBC Hgb Hct MCV MCH MCHC RDW Plt Count MPV Immature Gran % Neutrophils % Lymphocytes % Monocytes % Eosinophils % Basophils % Nucleated RBC % Absolute Neutrophils Absolute Lymphocytes Absolute Monocytes Absolute Eosinophils Absolute Basophils PT 9.2 L INR 0.9 Sodium Potassium Chloride Carbon Dioxide Anion Gap BUN Creatinine Estimated GFR/1.73 m2 Glucose Calcium Magnesium Total Bilirubin AST ALT Alkaline Phosphatase Troponin I Total Protein Albumin Lipase COVID-19 Source Nasal/Nares SARS-CoV-2 (PCR) Negative Patient ABO/Rh A Positive Antibody Screen NEGATIVE 01/28/22 01/28/22 11:55 14:13 WBC RBC Hgb Hct MCV MCH MCHC RDW Plt Count MPV Immature Gran % Neutrophils % Lymphocytes % Monocytes % Eosinophils % Basophils % Nucleated RBC % Absolute Neutrophils Absolute Lymphocytes Absolute Monocytes Absolute Eosinophils Absolute Basophils PT INR Sodium 136 Potassium 4.0 Chloride 104 Carbon Dioxide 25.4 Anion Gap 6.6 BUN 20 H Creatinine 1.1 Estimated GFR/1.73 m2 >= 60.00 Glucose 86 Calcium 8.1 L Magnesium 1.6 L Total Bilirubin 0.2 AST 55 H ALT 72 H Alkaline Phosphatase 43 L Troponin I < 50 < 50 Total Protein 5.8 L Albumin 2.8 L Lipase COVID-19 Source SARS-CoV-2 (PCR) Patient ABO/Rh Antibody Screen Last Vital Signs Temp 97.9 F 01/28/22 11:46 Pulse 108 H 01/28/22 16:01 Resp 22 01/28/22 16:01 BP 181/102 H 01/28/22 16:01 Pulse Ox 96 01/28/22 16:01 PAWSS Have you Been Recently Intoxicated or Drunk Within the Last 30 days?: Yes Have you Ever Experienced Previous Episodes of Alcohol Withdrawal?: Yes Have you ever Experienced Withdrawal Seizures?: No Have you ever Experienced Delirium Tremens(DT)s?: No Have you ever undergone Alcohol Rehabilitation Treatment (i.e, inpt ot outpatient treatment programs)?: Yes Have you ever Experienced Blackouts?: Yes Have you ever Combined Alcohol with other Downers within the last 90 days?: No Have you ever Combined Alcohol with any other Substance of Abuse during the last 90 days?: No Positive Blood Alcohol level on Presentation? [PCS.BAL]: No Evidence of Increased Autonomic Activity (i.e. HR>120, tremor, sweating, agitation, nausea)?: No Result: 4
[2022-01-28] MEDS: LORazepam 20 MG/10 ML VIAL IVP (16:18)
[2022-01-28] MEDS: Normal Saline Flush 10 ML SYR IVP ×4 (16:18→16:19)
--- NOTE | 2022-01-28 16:26 | ENDO_ITS ---
Date of service: 01/28/22 Time of Service: 16:26 Endoscopy Report DATE OF PROCEDURE: 01/28/22 PRE-OP DIAGNOSIS: Melena POST-OP DIAGNOSIS: other (Esophagitis, Dumont's esophagus) PROCEDURE: EGD SURGEON: Rom Martin ANESTHESIA TYPE: General LMA/ETT ESTIMATED BLOOD LOSS: 0 PATHOLOGY: none sent COMPLICATIONS: None DISPOSITION: ICU INDICATIONS: Shows a 46-year-old male with several days of melena, and now bright red blood per rectum. He had an acute drop in his hemoglobin from a baseline around 14 down to 10. 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 No evidence of acute gastrointestinal hemorrhage. PROCEDURE DESCRIPTION: After the initiation of general anesthesia I advanced a standard gastroscope through the mouth past the hypopharynx and into the esophagus.? Under the direct vision of the scope, I advanced down the esophagus into the stomach.? There was some evidence of inflammation in the distal esophagus, but no evidence of bleed ing. Once I entered the stomach, I performed a brief inspection, followed by retroflexion towards the gastric cardia.? This appeared normal.? After that, I gently advanced the scope around the incisura angularis and examined the pylorus.? This also appeared normal.? Next, I advanced the scope through the pylorus into the duodenum.? The mucosa was pink and healthy appearing.? I was able to advance the endoscope down past the ampulla Vater. Bile was seen emptying into the duodenum. There were no abnormalities.?Next, I began retracting the endoscope.? Again, I returned to the stomach which was carefully examined once again.? I then gently desufflated some of the stomach, and withdrew the endoscope into the distal esophagus. As mentioned previously, there was some evidence of inflammation in the distal esophagus, with the Z-line appearing around 40 cm. There was an abrupt change of the mucosa with hyperemic columnar appearing mucosa above the level of the diaphragm hiatus. Although I think this is an important diagnosis, and worthy of biopsy, I did not feel it was appropriate to perform biopsies in the setting of acute gastrointestinal hemorrhage. ?Finally, I withdrew the scope along the length of the esophagus taking great care to examine the entirety of the mucosa.? I did not appreciate any other abnormalities.
[2022-01-28] MEDS: Polyethylene Glycol 3350 238 GM BTL PO (17:33)
--- NOTE | 2022-01-28 19:32 | W.MEDCONSULT ---
Date of service: 01/28/22 Time of Service: 19:32 Assessment and Plan Assessment and plan (1) Alcohol withdrawal: Status: Acute Assessment and plan: Appears to early and mild alcohol withdrawal syndrome. I would advise scheduled low dose benzos along with CIWA. I don't think he needs beta nargis at this point, and would have a relatively higher threshhold for adding this in setting of GI bleed and possible unstable hemodynamics. History of Present Illness History of Present Illness Chief Complaint: alcohol withdrawal Narrative: 46 male here on surgical service with GI bleed, EGD earlier today failed demonstrate source. Patient has h?o alcohol abuse, reports up to 8 nips per day. along with unspecified beer. States he has stopped drinking before, has some tremors and gets a little tachycardic, no h/o seizures or FDTs. last drink approx 12 hours ago., Was noted to be somewhat tremulous, and hyperdynamic. Recieved Ativan 1 mg IV. Staff note he is considerably improved. I was asked to help manage withdrawal. Review of Systems Narrative: per HPI PFSH All Active Problems (Updated 01/28/22 @ 19:37 by Reinaldo Mabry MD) Alcohol withdrawal (Acute) Melena (Acute) Laceration (Acute) Cubital tunnel syndrome (Acute) Asthma (Chronic) Tobacco use disorder, continuous (Acute 06/17/17) Substance abuse (Acute 05/15/17) MICHELLE (generalized anxiety disorder) (Acute 05/15/17) Family history of breast cancer (Acute 06/04/17) Mother Essential hypertension (Acute 05/15/17) ETOH abuse (Acute 05/15/17) [employer] 11/29/15-12/04/15 Attention deficit disorder (Acute 05/15/17) Medical History Alcohol dependence Alcohol use disorder Attention deficit disorder (ADD) in adult Family History Mother Depression Neoplasm Breast Father Alcohol abuse Essential hypertension Heart disease Brother Alcohol abuse Social History Smoking/Tobacco Use Status: Current every day Tobacco Type: cigarettes and smokeless tobacco Tobacco: How many years used: 30 Smokeless tobacco user: chewing tobacco Quit status: considering quitting Smoking risk assessment performed?: Yes Alcohol Intake: current Alcohol Intake frequency: 3 or more drinks per day Alcohol type: beer and hard liquor Drug use: Occasionally Substance use type: marijuana Household members: significant other Housing: apartment Number of Children: 1 Communication Needs: None current occupation: [employer] Pets and animals: Yes Sexually active: Yes Do you think of yourself as: straight/heterosexual Current gender identity: male What is your relationship status?: living with partner Panel score (0-1 are the most socially isolated patients): 1 What type of physical activity do you participate in: other Details: Work Frequency: 5-6 times per week Seatbelt use: always Helmet use: Yes Helmet use: always 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 Working smoke detector in home: Yes Fire extinguisher in home: Yes Carbon monox detector in home: Yes Do you feel safe at home: Yes Do you feel safe in your relationship?: Yes Exam Narrative Exam Narrative: 147/89, 102 (at time of visit). Lungs clear; heart tachy/regular; abdomen soft and NT;neuro slight resting tremor, kumar rt, ox3, lucid, moves all 4s Results Last Vital Signs Temp 38 C H 01/28/22 15:30 Pulse 108 H 01/28/22 16:01 Resp 22 01/28/22 16:01 BP 181/102 H 01/28/22 16:01 Pulse Ox 96 01/28/22 16:01 Labs Result diagrams: 01/28/22 10:07 01/28/22 11:55 Labs: Laboratory Results - last 24 hr 01/28/22 01/28/22 01/28/22 09:53 10:07 10:07 WBC 14.44 H RBC 3.08 L Hgb 10.6 L Hct 30.7 L MCV 100 H MCH 34.4 H MCHC 34.5 RDW 11.9 Plt Count 298 MPV 9.5 Immature Gran % 0.3 Neutrophils % 78.8 Lymphocytes % 15.4 Monocytes % 4.2 Eosinophils % 0.3 Basophils % 1.0 Nucleated RBC % 0.0 Absolute Neutrophils 11.38 H Absolute Lymphocytes 2.22 Absolute Monocytes 0.61 Absolute Eosinophils 0.04 Absolute Basophils 0.14 PT INR Sodium 136 Potassium 3.8 Chloride 101 Carbon Dioxide 27.8 Anion Gap 7.2 BUN 22 H Creatinine 1.2 Estimated GFR/1.73 m2 >= 60.00 Glucose 103 Calcium 9.0 Magnesium Total Bilirubin 0.1 L AST 70 H ALT 86 H Alkaline Phosphatase 47 Troponin I Total Protein 6.7 Albumin 3.2 L Lipase Cancelled 232 COVID-19 Source SARS-CoV-2 (PCR) Patient ABO/Rh Antibody Screen 01/28/22 01/28/22 01/28/22 10:07 10:07 10:40 WBC RBC Hgb Hct MCV MCH MCHC RDW Plt Count MPV Immature Gran % Neutrophils % Lymphocytes % Monocytes % Eosinophils % Basophils % Nucleated RBC % Absolute Neutrophils Absolute Lymphocytes Absolute Monocytes Absolute Eosinophils Absolute Basophils PT 9.2 L INR 0.9 Sodium Potassium Chloride Carbon Dioxide Anion Gap BUN Creatinine Estimated GFR/1.73 m2 Glucose Calcium Magnesium Total Bilirubin AST ALT Alkaline Phosphatase Troponin I Total Protein Albumin Lipase COVID-19 Source Nasal/Nares SARS-CoV-2 (PCR) Negative Patient ABO/Rh A Positive Antibody Screen NEGATIVE 01/28/22 01/28/22 11:55 14:13 WBC RBC Hgb Hct MCV MCH MCHC RDW Plt Count MPV Immature Gran % Neutrophils % Lymphocytes % Monocytes % Eosinophils % Basophils % Nucleated RBC % Absolute Neutrophils Absolute Lymphocytes Absolute Monocytes Absolute Eosinophils Absolute Basophils PT INR Sodium 136 Potassium 4.0 Chloride 104 Carbon Dioxide 25.4 Anion Gap 6.6 BUN 20 H Creatinine 1.1 Estimated GFR/1.73 m2 >= 60.00 Glucose 86 Calcium 8.1 L Magnesium 1.6 L Total Bilirubin 0.2 AST 55 H ALT 72 H Alkaline Phosphatase 43 L Troponin I < 50 < 50 Total Protein 5.8 L Albumin 2.8 L Lipase COVID-19 Source SARS-CoV-2 (PCR) Patient ABO/Rh Antibody Screen
[2022-01-28] MEDS: chlordiazePOXIDE 25 MG CAP PO (19:59)
[2022-01-28] MEDS: MAGNESIUM SULFATE 2 GM/50 ML BAG IVPB (19:59)
[2022-01-28 20:20] LABS: HGB 9.1 g/dL (13.5-17.5)
[2022-01-29] VITALS (37 sets, daily range): BP systolic 117–177; BP diastolic 77–108; PULSE 80–115; RESP 13–22; TEMP 36.1–37.2; O2SAT 96–99; BMI 24.9
[2022-01-29] MEDS: Polyethylene Glycol 3350 238 GM BTL PO (00:01)
[2022-01-29] MEDS: Lactated Ringers 1,000 ML 80 ML IV ×3 (00:04→23:28)
[2022-01-29] MEDS: chlordiazePOXIDE 25 MG CAP PO ×4 (07:33→19:14)
[2022-01-29 08:07] LABS: Lab Add On Test DONE
[2022-01-29 08:11] LABS: Abs Immature Grans 0.05 10^3/uL (0.0-0.06); Absolute Basophil Count 0.06 10^3/uL (0.0-0.2); Absolute Eosinophil Count 0.01 10^3/uL (0.0-0.7); Absolute Lymphocyte Count 2.14 10^3/uL (1.2-3.4); Absolute Monocyte Count 0.82 10^3/uL (0.1-0.8); Basophils % 0.5; Eosinophils % 0.1; HCT 26.1 % (40.0-50.0); HGB 8.9 g/dL (13.5-17.5); Immature Grans % 0.5; Lymphocytes % 19.3; MCH 34.1 pg (27.0-33.0); MCHC 34.1 % (32.0-36.0); MCV 100 fL (80-95); MPV 9.6 fL (8.0-11.0); Monocytes % 7.4; Neutrophils % 72.2; Platelet Count 259 10^3/uL (130-400); RBC 2.61 10^6/uL (4.36-5.78); RDW 11.9 % (11.8-14.1); RDW-SD 43.1 fL
[2022-01-29 08:22] LABS: Anion Gap 3.6 mmol/L (3-11); BUN 11 mg/dL (7-18); CO2 28.4 mmol/L (21.0-32.0); Calcium 8.6 mg/dL (8.5-10.1); Chloride 103 mmol/L (98-107); Glucose 98 mg/dL (74-106); Magnesium 1.9 mg/dL (1.8-2.4); Potassium 3.8 mmol/L (3.5-5.1); Sodium 135 mmol/L (136-145)
[2022-01-29 08:28] LABS: ALT 67 U/L (16-63); AST 37 U/L (15-37); Albumin 2.8 g/dL (3.4-5.0); Alkaline Phosphatase 38 U/L (46-116); Bilirubin, Direct 0.1 mg/dL (0.0-0.2); Bilirubin, Total 0.3 mg/dL (0.2-1.0)
[2022-01-29 08:33] LABS: Absolute Neutrophil Count 8.01 10^3/uL (1.2-6.7)
[2022-01-29 08:37] LABS: Iron 90 ug/dL (65-175); Total Iron Binding Capacity 264 ug/dL (250-450); Transferrin Sat 34 % (20-55)
[2022-01-29 08:52] LABS: Ferritin 124 ng/mL (26-388); Vitamin B12 470 pg/mL (193-986)
[2022-01-29] MEDS: THIAMINE 100 MG in Normal Saline 100 ML 200 MG IVPB (09:01)
[2022-01-29] MEDS: LORazepam 1 MG TAB PO/SL ×2 (09:13→19:13)
--- NOTE | 2022-01-29 09:21 | DI.RAD_ITS ---
Exam(s) XR PORTABLE CHEST AP EXAM: XR PORTABLE CHEST AP CLINICAL HISTORY: wheezing TECHNIQUE: 2D digital imaging was performed of the chest. One image was obtained. An AP view was ob tained. COMPARISON: No exams were available for comparison FINDINGS: MEDIASTINUM: Normal. HEART: Normal. PULMONARY VASCULATURE: Normal. LUNGS: Clear. PLEURAL SPACE: No pleural effusion or pneumothorax. BONE:Within normal limits for the patient's age. OTHER FINDINGS:Normal. IMPRESSION: No acute pulmonary findings. DATA REPOSITORY: RADIATION DOSE DELIVERED:
[2022-01-29] MEDS: PANTOPRAZOLE 80 MG in Normal Saline 100 ML 10 MG IV (09:47)
--- NOTE | 2022-01-29 09:54 | W.PM.PROGNOT ---
Date of Service Date of service: 01/29/22 Time of Service: 09:55 Assessment and Plan Assessment and plan (1) Alcohol withdrawal: Status: Acute (2) Melena: Status: Acute Assessment and plan: Patient completed the bowel prep last night. BMs are now water, that is tinged red/brown per nsg reports Patient denies any pain, bloating, nausea or vomiting. Diet changed to NPO Hgb 8.9 this morning. P// colonoscopy under sedation later today. Patient seen and examined. Agree with above. Risks of colonoscopy include but are not limited to: Bleeding, infection, perforation which may require antibiotics or surgery, and complications from anesthesia including aspiration. Patient is agreeable to the procedure and we shall proceed. Subjective Subjective Interval history since last seen: Patient reports that he is feeling pretty well. He states he has not had any further rectal bleeding. He denies any abdominal pain, bloating, nausea or vomiting. He is eager to proceed with the Colonoscopy. He states he tolerated the bowel prep well. Nsg notes describe slightly tinged red/brown water BMs since completing the bowel prep. Exam Resp Effort & Inspection: normal respiratory effort, no audible wheezes and no cough GI Inspection: normal to inspection Palpation: soft, no guarding and nontender Auscultation: normal bowel sounds Objective Last Vital Signs Temp 36.8 C 01/29/22 04:35 Pulse 86 01/29/22 05:01 Resp 13 01/29/22 05:01 BP 150/77 H 01/29/22 05:01 Pulse Ox 96 01/29/22 04:35 Laboratory Results - last 24 hr 01/28/22 01/28/22 01/28/22 09:53 10:07 10:07 WBC 14.44 H RBC 3.08 L Hgb 10.6 L Hct 30.7 L MCV 100 H MCH 34.4 H MCHC 34.5 RDW 11.9 Plt Count 298 MPV 9.5 Immature Gran % 0.3 Neutrophils % 78.8 Lymphocytes % 15.4 Monocytes % 4.2 Eosinophils % 0.3 Basophils % 1.0 Nucleated RBC % 0.0 Absolute Neutrophils 11.38 H Absolute Lymphocytes 2.22 Absolute Monocytes 0.61 Absolute Eosinophils 0.04 Absolute Basophils 0.14 PT INR Sodium 136 Potassium 3.8 Chloride 101 Carbon Dioxide 27.8 Anion Gap 7.2 BUN 22 H Creatinine 1.2 Estimated GFR/1.73 m2 >= 60.00 Glucose 103 Calcium 9.0 Magnesium Iron TIBC Transferrin % Sat Ferritin Total Bilirubin 0.1 L Conjugated Bilirubin AST 70 H ALT 86 H Alkaline Phosphatase 47 Troponin I Total Protein 6.7 Albumin 3.2 L Lipase Cancelled 232 Vitamin B12 Folate COVID-19 Source SARS-CoV-2 (PCR) Add-On Test Request Patient ABO/Rh Antibody Screen 01/28/22 01/28/22 01/28/22 10:07 10:07 10:40 WBC RBC Hgb Hct MCV MCH MCHC RDW Plt Count MPV Immature Gran % Neutrophils % Lymphocytes % Monocytes % Eosinophils % Basophils % Nucleated RBC % Absolute Neutrophils Absolute Lymphocytes Absolute Monocytes Absolute Eosinophils Absolute Basophils PT 9.2 L INR 0.9 Sodium Potassium Chloride Carbon Dioxide Anion Gap BUN Creatinine Estimated GFR/1.73 m2 Glucose Calcium Magnesium Iron TIBC Transferrin % Sat Ferritin Total Bilirubin Conjugated Bilirubin AST ALT Alkaline Phosphatase Troponin I Total Protein Albumin Lipase Vitamin B12 Folate COVID-19 Source Nasal/Nares SARS-CoV-2 (PCR) Negative Add-On Test Request Patient ABO/Rh A Positive Antibody Screen NEGATIVE 01/28/22 01/28/22 01/28/22 11:55 14:13 20:02 WBC RBC Hgb 9.1 L Hct MCV MCH MCHC RDW Plt Count MPV Immature Gran % Neutrophils % Lymphocytes % Monocytes % Eosinophils % Basophils % Nucleated RBC % Absolute Neutrophils Absolute Lymphocytes Absolute Monocytes Absolute Eosinophils Absolute Basophils PT INR Sodium 136 Potassium 4.0 Chloride 104 Carbon Dioxide 25.4 Anion Gap 6.6 BUN 20 H Creatinine 1.1 Estimated GFR/1.73 m2 >= 60.00 Glucose 86 Calcium 8.1 L Magnesium 1.6 L Iron TIBC Transferrin % Sat Ferritin Total Bilirubin 0.2 Conjugated Bilirubin AST 55 H ALT 72 H Alkaline Phosphatase 43 L Troponin I < 50 < 50 Total Protein 5.8 L Albumin 2.8 L Lipase Vitamin B12 Folate COVID-19 Source SARS-CoV-2 (PCR) Add-On Test Request Patient ABO/Rh Antibody Screen 01/29/22 01/29/22 01/29/22 06:00 08:00 08:00 WBC RBC Hgb Cancelled Hct MCV MCH MCHC RDW Plt Count MPV Immature Gran % Neutrophils % Lymphocytes % Monocytes % Eosinophils % Basophils % Nucleated RBC % Absolute Neutrophils Absolute Lymphocytes Absolute Monocytes Absolute Eosinophils Absolute Basophils PT INR Sodium 135 L Potassium 3.8 Chloride 103 Carbon Dioxide 28.4 Anion Gap 3.6 BUN 11 Creatinine 1.0 Estimated GFR/1.73 m2 >= 60.00 Glucose 98 Calcium 8.6 Magnesium 1.9 Iron TIBC Transferrin % Sat Ferritin Total Bilirubin Conjugated Bilirubin AST ALT Alkaline Phosphatase Troponin I Total Protein Albumin Lipase Vitamin B12 Folate COVID-19 Source SARS-CoV-2 (PCR) Add-On Test Request DONE Patient ABO/Rh Antibody Screen 01/29/22 01/29/22 01/29/22 08:00 08:00 08:00 WBC RBC Hgb Hct MCV MCH MCHC RDW Plt Count MPV Immature Gran % Neutrophils % Lymphocytes % Monocytes % Eosinophils % Basophils % Nucleated RBC % Absolute Neutrophils Absolute Lymphocytes Absolute Monocytes Absolute Eosinophils Absolute Basophils PT INR Sodium Potassium Chloride Carbon Dioxide Anion Gap BUN Creatinine Estimated GFR/1.73 m2 Glucose Calcium Magnesium Iron 90 TIBC 264 Transferrin % Sat 34 Ferritin 124 Total Bilirubin 0.3 Conjugated Bilirubin 0.1 AST 37 ALT 67 H Alkaline Phosphatase 38 L Troponin I Total Protein 6.0 L Albumin 2.8 L Lipase Vitamin B12 470 Folate 4.0 L COVID-19 Source SARS-CoV-2 (PCR) Add-On Test Request Patient ABO/Rh Antibody Screen 01/29/22 08:00 WBC 11.10 H RBC 2.61 L Hgb 8.9 L Hct 26.1 L MCV 100 H MCH 34.1 H MCHC 34.1 RDW 11.9 Plt Count 259 MPV 9.6 Immature Gran % 0.5 Neutrophils % 72.2 Lymphocytes % 19.3 Monocytes % 7.4 Eosinophils % 0.1 Basophils % 0.5 Nucleated RBC % 0.0 Absolute Neutrophils 8.01 H Absolute Lymphocytes 2.14 Absolute Monocytes 0.82 H Absolute Eosinophils 0.01 Absolute Basophils 0.06 PT INR Sodium Potassium Chloride Carbon Dioxide Anion Gap BUN Creatinine Estimated GFR/1.73 m2 Glucose Calcium Magnesium Iron TIBC Transferrin % Sat Ferritin Total Bilirubin Conjugated Bilirubin AST ALT Alkaline Phosphatase Troponin I Total Protein Albumin Lipase Vitamin B12 Folate COVID-19 Source SARS-CoV-2 (PCR) Add-On Test Request Patient ABO/Rh Antibody Screen PAWSS Have you Been Recently Intoxicated or Drunk Within the Last 30 days?: Yes Have you Ever Experienced Previous Episodes of Alcohol Withdrawal?: Yes Have you ever Experienced Withdrawal Seizures?: No Have you ever Experienced Delirium Tremens(DT)s?: No Have you ever undergone Alcohol Rehabilitation Treatment (i.e, inpt ot outpatient treatment programs)?: Yes Have you ever Experienced Blackouts?: Yes Have you ever Combined Alcohol with other Downers within the last 90 days?: No Have you ever Combined Alcohol with any other Substance of Abuse during the last 90 days?: No Positive Blood Alcohol level on Presentation? [PCS.BAL]: No Evidence of Increased Autonomic Activity (i.e. HR>120, tremor, sweating, agitation, nausea)?: No Result: 4
--- NOTE | 2022-01-29 09:59 | PDOC.CMIN ---
- If Service Date Differs Date of service: 01/29/22 Time of Service: 09:59 Care Management Initial Assess REASON FOR HOSPITALIZATION:: GI Bleed PAST MEDICAL HISTORY/PAST SURGICAL HISTORY:: All Active Problems. Melena (Acute). Laceration (Acute). Cubital tunnel syndrome (Acute). Asthma (Chronic). Tobacco use disorder, continuous (Acute 06/17/17). Substance abuse (Acute 05/15/17). MICHELLE (generalized anxiety disorder) (Acute 05/15/17). Family history of breast cancer (Acute 06/04/17). Mother. Essential hypertension (Acute 05/15/17). ETOH abuse (Acute 05/15/17). [place] 11/29/15-12/04/15. Attention deficit disorder (Acute 05/15/17). Medical History. Alcohol dependence. Alcohol use disorder. Attention deficit disorder (ADD) in adult PREVIOUS FUNCTIONAL STATUS/SOCIAL/FAMILY SUPPORTS:: Cristobal lives in [facility] with his s/o, Fouzia. He works at [employer] and is independent at baseline. CURRENT FUNCTIONAL STATUS:: Cristobal was sleeping when CM attempted to meet with him. CM spoke to his RN, who reported that he is scoring 8 on CIWA, and was recently medicated, which had a sedating effect on him. Later he met with MITCHEL Mcghee, who reported that he declined referrals for treatment programs for his alcohol use. He is scheduled to have a colonoscopy this afternoon to help determine the source of his GI bleed, as the endoscopy was reportedly negative. CM will continue to follow. ADVANCE DIRECTIVES:: Not on file. Has patient been provided with info about the portal/API?: Yes Did the patient sign up for the portal?: No CODE STATUS:: Full Code INSURANCE COVERAGE / FINANCIAL ISSUES:: [employer]BS CURRENT HOME/COMMUNITY SERVICES/EQUIPMENT:: No current services or equipment. PRIMARY CARE PHYSICIAN:: Celeste Christiansen POTENTIAL DISCHARGE NEEDS:: Follow up appointments. PATIENT/FAMILY EDUCATION NEEDS:: Review discharge instructions and limitations, discussion of self care needs including ask me three. ANTICIPATED BARRIERS TO DISCHARGE:: None identified TRANSPORTATION:: Via private vehicle with family. PLAN:: Anticipate Cristobal will return home when medically cleared. He will be driven home via private vehicle by family. He will follow up with his PCP and discharge plan of care. CM will continue to follow.
--- NOTE | 2022-01-29 12:09 | PGE_ITS ---
Date of Service Date of service: 01/29/22 Time of Service: 08:45 Assessment and Plan Assessment and plan (1) Alcohol withdrawal: Status: Acute Assessment and plan: Continue scheduled librium + prn ativan per ciwa. I have added thiamine, MVI, anemia studies. Replete B12 and folate which are both low. I have asked a sobriety high school academic coach to talk to the patient. (2) Melena: Status: Acute Assessment and plan: H/H dropping, but not requiring transfusion. For colonoscopy today. Defer to primary team. Avoid chemica DVT ppx. (3) Acute anemia: Status: Acute Assessment and plan: Evidence of B12 and folate deficiency but not iron deficiency. Will replete both, monitor H/H's. Not requiring transfusion at this time. (4) Asthma: Status: Chronic Assessment and plan: Provide prn albuterol. Advised to quit. Subjective Subjective Interval history since last seen: Mr Li states that he is tremulous and a little shaky. He has some abdominal cramping. Denies headache,dizziness, hallucinations, chest pain, shortness of breath, nausea. Had been having liquid brown heme + stools. Planned for colonoscopy today. Shawn 1-6-0-2-4-8-2. On scheduled librium.Has received only 1 dose of lorazepam 2 mg today so far. He does smoke and states has a h/o asthma provoked by cold weather. He is wheezing today. Uses an inhaler at home. Exam Narrative Exam Narrative: General: Pleasant middle-aged male who is mildly tremulous, A&Ox3, NAD HEENT: EOMI, MMM Heart: RRR, mildly tachycardic, no m/r/g Lungs: expiratory wheezing B Abdomen: soft, nontender, nondistneded Extremities: no edema Objective Last Vital Signs Temp 37.1 C 01/29/22 11:23 Pulse 100 H 01/29/22 11:23 Resp 14 01/29/22 11:23 BP 138/86 01/29/22 11:23 Pulse Ox 98 01/29/22 11:23 Laboratory Results - last 24 hr 01/28/22 01/28/22 01/28/22 11:55 14:13 20:02 WBC RBC Hgb 9.1 L Hct MCV MCH MCHC RDW Plt Count MPV Immature Gran % Neutrophils % Lymphocytes % Monocytes % Eosinophils % Basophils % Nucleated RBC % Absolute Neutrophils Absolute Lymphocytes Absolute Monocytes Absolute Eosinophils Absolute Basophils Sodium 136 Potassium 4.0 Chloride 104 Carbon Dioxide 25.4 Anion Gap 6.6 BUN 20 H Creatinine 1.1 Estimated GFR/1.73 m2 >= 60.00 Glucose 86 Calcium 8.1 L Magnesium 1.6 L Iron TIBC Transferrin % Sat Ferritin Total Bilirubin 0.2 Conjugated Bilirubin AST 55 H ALT 72 H Alkaline Phosphatase 43 L Troponin I < 50 < 50 Total Protein 5.8 L Albumin 2.8 L Vitamin B12 Folate Add-On Test Request 01/29/22 01/29/22 01/29/22 06:00 08:00 08:00 WBC RBC Hgb Cancelled Hct MCV MCH MCHC RDW Plt Count MPV Immature Gran % Neutrophils % Lymphocytes % Monocytes % Eosinophils % Basophils % Nucleated RBC % Absolute Neutrophils Absolute Lymphocytes Absolute Monocytes Absolute Eosinophils Absolute Basophils Sodium 135 L Potassium 3.8 Chloride 103 Carbon Dioxide 28.4 Anion Gap 3.6 BUN 11 Creatinine 1.0 Estimated GFR/1.73 m2 >= 60.00 Glucose 98 Calcium 8.6 Magnesium 1.9 Iron TIBC Transferrin % Sat Ferritin Total Bilirubin Conjugated Bilirubin AST ALT Alkaline Phosphatase Troponin I Total Protein Albumin Vitamin B12 Folate Add-On Test Request DONE 01/29/22 01/29/22 01/29/22 08:00 08:00 08:00 WBC RBC Hgb Hct MCV MCH MCHC RDW Plt Count MPV Immature Gran % Neutrophils % Lymphocytes % Monocytes % Eosinophils % Basophils % Nucleated RBC % Absolute Neutrophils Absolute Lymphocytes Absolute Monocytes Absolute Eosinophils Absolute Basophils Sodium Potassium Chloride Carbon Dioxide Anion Gap BUN Creatinine Estimated GFR/1.73 m2 Glucose Calcium Magnesium Iron 90 TIBC 264 Transferrin % Sat 34 Ferritin 124 Total Bilirubin 0.3 Conjugated Bilirubin 0.1 AST 37 ALT 67 H Alkaline Phosphatase 38 L Troponin I Total Protein 6.0 L Albumin 2.8 L Vitamin B12 470 Folate 4.0 L Add-On Test Request 01/29/22 08:00 WBC 11.10 H RBC 2.61 L Hgb 8.9 L Hct 26.1 L MCV 100 H MCH 34.1 H MCHC 34.1 RDW 11.9 Plt Count 259 MPV 9.6 Immature Gran % 0.5 Neutrophils % 72.2 Lymphocytes % 19.3 Monocytes % 7.4 Eosinophils % 0.1 Basophils % 0.5 Nucleated RBC % 0.0 Absolute Neutrophils 8.01 H Absolute Lymphocytes 2.14 Absolute Monocytes 0.82 H Absolute Eosinophils 0.01 Absolute Basophils 0.06 Sodium Potassium Chloride Carbon Dioxide Anion Gap BUN Creatinine Estimated GFR/1.73 m2 Glucose Calcium Magnesium Iron TIBC Transferrin % Sat Ferritin Total Bilirubin Conjugated Bilirubin AST ALT Alkaline Phosphatase Troponin I Total Protein Albumin Vitamin B12 Folate Add-On Test Request Objective Narrative Objective Narrative: CXR: No acute pulmonary findings. PAWSS Have you Been Recently Intoxicated or Drunk Within the Last 30 days?: Yes Have you Ever Experienced Previous Episodes of Alcohol Withdrawal?: Yes Have you ever Experienced Withdrawal Seizures?: No Have you ever Experienced Delirium Tremens(DT)s?: No Have you ever undergone Alcohol Rehabilitation Treatment (i.e, inpt ot outpatient treatment programs)?: Yes Have you ever Experienced Blackouts?: Yes Have you ever Combined Alcohol with other Downers within the last 90 days?: No Have you ever Combined Alcohol with any other Substance of Abuse during the last 90 days?: No Positive Blood Alcohol level on Presentation? [PCS.BAL]: No Evidence of Increased Autonomic Activity (i.e. HR>120, tremor, sweating, agitation, nausea)?: No Result: 4
[2022-01-29] MEDS: Cyanocobalamin 1000 MCG/ML VIAL IM/SC (12:39)
--- NOTE | 2022-01-29 13:39 | PDOC.CMPRO ---
- If Service Date Differs Date of service: 01/29/22 Time of Service: 13:39 Care Management Progress Note SBIRT Screen in ICU: positive for nicotine, cannabis (low risk) and Alcohol (AUDIT 33) Severe. Pt has been treated for alcohol withdrawal while hospitalized in ICU. Pt reports he plans to quit drinking but is not considering treatment services at this time. Pt states he has other personal resources in the form of friends in recovery who may be of support to him. Pt was supplied with other resources including [facility] and treatment programs contacts which he accepted but declines referral at this time.
--- NOTE | 2022-01-29 15:03 | W.ANESPRE ---
General Info Date of Service Date Performed: 01/29/22 Height: 5 ft 9 in Weight: 76.6 kg Body Mass Index (BMI): 24.9 Surgical Procedure: Operation Date: 01/28/22 14:35 Proposed Procedure Side Surgeon p Gastroscopy Rom Martin MD Actual Procedure Side Surgeon p Gastroscopy Rom Martin MD Pre-Op Diagnosis Post-Op Diagnosis GI BLEED ESOPHAGITIS Operation Date: 01/29/22 17:05 Proposed Procedure Side Surgeon p Colonoscopy Jami Charles, Meds Allergies and Home Medications Allergies Allergy/AdvReac Type Severity Reaction Status Date / Time No Known Drug Allergies Allergy Verified 01/28/22 09:38 Home Medication Medication Instructions Recorded albuterol sulfate 90 mcg/actuation 2 puff inhalation Q6H PRN 05/01/21 aerosol inhaler (Proventil HFA) shortness of breath or wheezing #18 grams bupropion HCl 150 mg tablet,12 hr 150 mg PO BID #180 tabs 07/04/21 sustained-release buspirone 10 mg tablet 20 mg PO TID #540 tabs 07/04/21 melatonin 1 mg tablet 2 mg PO .QHS 08/22/21 Current Visit Medications: Current Medications Generic Name Dose Route Start Last Admin Trade Name Freq PRN Reason Stop Dose Admin Acetaminophen 500 mg 01/28/22 15:56 Acetaminophen 500 Mg Tab PO Q6H PRN PRN Albuterol Sulfate 0 puff 01/29/22 09:45 Albuterol Hfa 8.5 Gm 200 Puff Inh IH Q4H PRN PRN Chlordiazepoxide HCl 25 mg 01/28/22 20:00 01/29/22 11:15 Chlordiazepoxide 25 Mg Cap PO 25 mg QID MONALISA Administration Cyanocobalamin 1,000 mcg 01/29/22 12:30 01/29/22 12:39 Cyanocobalamin 1000 Mcg/Ml Vial IM/SC 1,000 mcg TODAY MONALISA Administration Cyanocobalamin 1,000 mcg 01/30/22 08:30 Cyanocobalamin 500 Mcg Tab PO DAILY MONALISA Device 1 each 01/29/22 09:00 Inhaler, Assist Device MC DIRECTED [facility] Folic Acid 1 mg 01/30/22 08:30 Folic Acid 1 Mg Tab PO DAILY [facility] Pantoprazole Sodium 80 mg/ 100 mls @ 10 mls/hr 01/28/22 12:00 01/29/22 14:54 Sodium Chloride IV 0 mg/hr INFUSION MONALISA 0 mls/hr Infusion 8 MG/HR Sodium Chloride 500 mls @ 0 mls/hr 01/28/22 10:36 Saline 500ml Bag IV PRN PRN As Directed Ringer's Solution 1,000 mls @ 80 mls/hr 01/28/22 14:45 01/29/22 12:42 IV 80 mls/hr INFUSION MONALISA Administration IV Miscellaneous Supplies 1 each 01/28/22 11:30 Iv Access IV DIRECTED MONALISA Iron/Minerals/Multivitamins 1 tab 01/30/22 08:30 Multivitamin W/Minerals Tab PO DAILY MONALISA Lorazepam 0 mg 01/28/22 19:39 01/29/22 09:13 Lorazepam 1 Mg Tab PO/SL 2 mg DIRECTED PRN Administration Nicotine 0 cartridge 01/28/22 19:00 01/28/22 22:26 Nicotine 10 Mg/Cartridge 30 Cart/Pkg IH 1 cartridge Q2H PRN PRN Administration Ondansetron HCl 4 mg 01/28/22 11:20 Ondansetron 4 Mg/2 Ml Vial IVP Q4H PRN PRN Polyethylene Glycol 238 gm 01/28/22 15:45 01/29/22 00:01 Polyethylene Glycol 3350 238 Gm Btl PO 238 gm DIRECTED MONALISA Administration Sodium Chloride 0 ml 01/28/22 11:20 Normal Saline Flush 10 Ml Syr IVP PRN PRN Thiamine HCl 100 mg 01/30/22 08:30 Thiamine 100 Mg Tab PO DAILY MONALISA PFSH Active Problems Active Problems: Problem Status Onset Code Acute anemia D64.9 Alcohol withdrawal F10.939 Melena K92.1 Laceration Cubital tunnel syndrome G56.20 Asthma J45.909 Tobacco use disorder, continuous 06/17/17 F17.209 Substance abuse 05/15/17 F19.10 MICHELLE (generalized anxiety disorder) 05/15/17 F41.1 Family history of breast cancer 06/04/17 Z80.3 Essential hypertension 05/15/17 I10 ETOH abuse 05/15/17 F10.10 Attention deficit disorder 05/15/17 F98.8 Medical History Medical History Alcohol dependence Alcohol use disorder Attention deficit disorder (ADD) in adult Tobacco Smoking/Tobacco Use Status: Current every day Tobacco Type: cigarettes and smokeless tobacco Smokeless tobacco user: chewing tobacco Alcohol Alcohol Intake: current Alcohol intake frequency: 3 or more drinks per day Alcohol type: beer and hard liquor Substance Use Substance use: Occasionally Substance use type: marijuana Vital Signs and Lab Results Vital Signs Most Recent Vital Signs in EMR: Most Recent Vital Signs Temp Pulse Resp BP Pulse Ox 37.1 C 92 H 14 149/97 H 98 01/29/22 11:23 01/29/22 14:00 01/29/22 14:01 01/29/22 14:00 01/29/22 11:23 Lab Results Result Diagrams: 01/29/22 08:00 01/29/22 08:00 Blood Type / Crossmatch: Patient ABO/Rh A Positive 01/28/22 Antibody Screen NEGATIVE 01/28/22 Complete Blood Count: White Blood Count 11.10 10^3/uL (4.4-10.8) H 01/29/22 08:00 Red Blood Count 2.61 10^6/uL (4.36-5.78) L 01/29/22 08:00 Hemoglobin 8.9 g/dL (13.5-17.5) L 01/29/22 08:00 Hematocrit 26.1 % (40.0-50.0) L 01/29/22 08:00 Platelet Count 259 10^3/uL (130-400) 01/29/22 08:00 Complete Metabolic Panel: Sodium Level 135 mmol/L (136-145) L 01/29/22 08:00 Potassium Level 3.8 mmol/L (3.5-5.1) 01/29/22 08:00 Chloride Level 103 mmol/L (98-107) 01/29/22 08:00 Carbon Dioxide Level 28.4 mmol/L (21.0-32.0) 01/29/22 08:00 Blood Urea Nitrogen 11 mg/dL (7-18) 01/29/22 08:00 Creatinine 1.0 mg/dL (0.70-1.30) 01/29/22 08:00 Estimated GFR/1.73 m2 >= 60.00 (mL/min/1.73m2) 01/29/22 08:00 Magnesium Level 1.9 mg/dL (1.8-2.4) 01/29/22 08:00 Calcium Level 8.6 mg/dL (8.5-10.1) 01/29/22 08:00 Albumin 2.8 g/dL (3.4-5.0) L 01/29/22 08:00 Glucose Level 98 mg/dL (74-106) 01/29/22 08:00 Liver Function Panel: Alanine Aminotransferase (ALT/SGPT) 67 U/L (16-63) H 01/29/22 08:00 Aspartate Amino Transf (AST/SGOT) 37 U/L (15-37) 01/29/22 08:00 Coagulation Panel: INR International Normalized Ratio 0.9 (0.9-1.1) 01/28/22 10:07 Prothrombin Time 9.2 sec (9.3-11.0) L 01/28/22 10:07 Cardiac Panel: Troponin I < 50 ng/L (<or=60) 01/28/22 Arterial Blood Gas: No Data to Display Venous Blood Gas: No Data to Display Pancreas Panel: Lipase 232 U/L (73-393) 01/28/22 10:07 Thyroid Panel: No Data to Display Infectious Disease: Coronavirus (COVID-19)(PCR) Negative (Negative) 01/28/22 10:40 Coronavirus 2019 Source Nasal/Nares 01/28/22 10:40 Blood Cultures: No Data to Display Toxicology Panel: No Data to Display Anesthesia Assessment and Plan Anesthesia History Personal History: No History of Anesthesia Complications Family History: No Family History of Anesthesia Complications Exercise Tolerance Exercise Tolerance: Metabolic Equivalents>4 Pertinent Negatives Pertinent Negatives: No Major Cardiovascular Symptoms or Complaints and No Major Pulmonary Symptoms or Complaints Cardiac & Pulmonary Exam Cardiac Exam: Normal S1/S2 Heart Sounds Pulmonary Exam: Clear Bilateral Breath Sounds Implantable Cardiac Device Does patient have a Pacemaker or an ICD?: No Airway Exam Known Difficult Airway: No Mallampati Class: 3 Mouth Opening: Normal (> 3cm) Thyromental Distance: Greater than 3 cm Neck Range of Motion: Full ROM Neck Circumference: Normal Teeth Condition: Generalized Poor Dentition and Loose or Chipped Airway Comments: Bottom incisor 31 broken ASA Classification ASA Score: ASA 2 Emergency Case?: No NPO Status NPO Status: NPO Clears >2 hours, Solids >8 hours Anesthesia Plan Resuscitation Status: Full Code Anesthesia Technique: General Anesthesia Airway Planned: Natural Airway Monitors Used: Standard Monitors
--- NOTE | 2022-01-29 15:31 | BOWEL_PTH ---
PATIENT: Cristobal Li LOC: U#:[id number] AGE/SX: 46/M ROOM: [id number] RE01/28/[address]: Rom Martin MD : 1975 BED: A DIS: 01/30/2022 SPEC #: [id number] RECD: 01/29/22 17:24 STATUS: RODDY REQ #: [id number] WESLEY: 01/29/22 15:[address]: Rom Martin DEPT: Surgical Specimen RECD BY: Brenna Coon ENTERED: 01/29/22 17:24 SP TYPE: Bowel OTHR DR: Celeste Christiansen APRN Tissues: 1 - BIOPSY BOWEL Procedures: GROSS AND MICRO LEVEL 4 Comments: [id number]
[2022-01-29] MEDS: Sucralfate 1 GM TAB PO ×2 (17:13→21:04)
--- NOTE | 2022-01-29 18:00 | NUR.NOTE ---
Nursing Note: Pt transferred from ICU to med surg room 230.pt here for GI bleed which has resolved. Pt oriented to room and all controls.
[2022-01-29] MEDS: buPROPion-CR 150 MG TABCR PO (19:14)
[2022-01-29] MEDS: busPIRone 5 MG TAB 20 MG PO (19:14)
[2022-01-29] MEDS: PANTOPRAZOLE 80 MG in Normal Saline 100 ML 8 MG IV (21:04)
[2022-01-29] MEDS: Melatonin 3 MG TAB PO (21:04)
[2022-01-30 03:15] VITALS: BP 138/79; PULSE 83; RESP 18; TEMP 36.4; O2SAT 97
[2022-01-30] MEDS: Sucralfate 1 GM TAB PO ×2 (05:05→10:19)
[2022-01-30] MEDS: PANTOPRAZOLE 80 MG in Normal Saline 100 ML 8 MG IV (05:16)
[2022-01-30 06:17] LABS: HCT 25.4 % (40.0-50.0); HGB 8.4 g/dL (13.5-17.5)
--- NOTE | 2022-01-30 06:26 | W.ANESPOSTOP ---
Postoperative Evaluation Date, Time and Location Date Performed: 01/29/22 Time Performed: 16:01 Patient Location: Intensive Care Unit Vital Signs Most Recent Imported Vital Signs: Most Recent Vital Signs Temp Pulse Resp BP Pulse Ox 36.4 C L 83 18 138/79 97 01/30/22 03:15 01/30/22 03:15 01/30/22 03:15 01/30/22 03:15 01/30/22 03:15 Pain Score Most Recent Pain Score: Most Recent Pain Score Pain Level 0 01/29/22 23:31 Assessment Mental Status: Awake (Alert & Oriented to Patient Baseline) Airway and Respiratory Function: Patent airway with normal (patient baseline) respiratory exam Cardiovascular Function: Hemodynamically Stable Hydration Status: Adequately Hydrated Nausea & Vomiting: No Nausea or Vomiting Pain: Pt. Denies Any Pain Peripheral Nerve Block: Patient did not receive a nerve block
[2022-01-30 06:36] LABS: ALT 71 U/L (16-63); AST 47 U/L (15-37); Albumin 2.5 g/dL (3.4-5.0); Alkaline Phosphatase 36 U/L (46-116); Anion Gap 5.7 mmol/L (3-11); BUN 14 mg/dL (7-18); Bilirubin, Direct < 0.1 mg/dL (0.0-0.2); Bilirubin, Total 0.1 mg/dL (0.2-1.0); CO2 29.3 mmol/L (21.0-32.0); CREATININE 1.1 mg/dL (0.70-1.30); Calcium 8.4 mg/dL (8.5-10.1); Chloride 104 mmol/L (98-107); Glucose 96 mg/dL (74-106); Magnesium 1.6 mg/dL (1.8-2.4); Potassium 3.6 mmol/L (3.5-5.1); Sodium 139 mmol/L (136-145); Total Protein 5.5 g/dL (6.4-8.2)
[2022-01-30 07:00] VITALS: PULSE 99
[2022-01-30 07:30] VITALS: BP 144/89; PULSE 98; RESP 12; TEMP 36.5; O2SAT 98
[2022-01-30] MEDS: Thiamine 100 MG TAB PO (07:50)
[2022-01-30] MEDS: LORazepam 1 MG TAB PO/SL (07:50)
[2022-01-30] MEDS: Folic Acid 1 MG TAB PO (07:50)
[2022-01-30] MEDS: Acetaminophen 500 MG TAB PO (07:50)
[2022-01-30] MEDS: busPIRone 5 MG TAB 20 MG PO (07:51)
[2022-01-30] MEDS: Multivitamin w/Minerals TAB 1 TAB PO (07:51)
[2022-01-30] MEDS: buPROPion-CR 150 MG TABCR PO (07:51)
[2022-01-30] MEDS: Cyanocobalamin 500 MCG TAB 1000 MCG PO (07:51)
[2022-01-30] MEDS: chlordiazePOXIDE 25 MG CAP PO ×2 (07:51→11:44)
[2022-01-30] MEDS: Normal Saline Flush 10 ML SYR IVP (07:52)
--- NOTE | 2022-01-30 08:57 | W.PM.PROGNOT ---
Date of Service Date of service: 01/30/22 Time of Service: 08:57 Assessment and Plan Assessment and plan (1) Alcohol withdrawal: Status: Acute (2) Melena: Status: Acute Assessment and plan: Colonoscopy completed yesterday, rectal polyp removed. Patient reports continued melena. Hgb 8.4 this morning. Denies any abdominal complaints Tolerating regular diet Patient expressed adamantly that he wishes to go home today. Subjective Subjective Interval history since last seen: Patient reports that he is feeling well and is getting anxious to leave. He wishes to leave today. States that he has a BM overnight which was dark in color, but less so than the past few days. Denies any abdominal pain, nausea or vomiting. Tolerating regular diet. Exam Const General: cooperative, healthy appearing and comfortable Orientation: alert and oriented x3 Resp Effort & Inspection: normal respiratory effort, no audible wheezes and no cough GI Inspection: normal to inspection and non-distended Palpation: soft, no guarding and nontender Objective Last Vital Signs Temp 36.5 C 01/30/22 07:30 Pulse 98 H 01/30/22 07:30 Resp 12 01/30/22 07:30 BP 144/89 H 01/30/22 07:30 Pulse Ox 98 01/30/22 07:30 Laboratory Results - last 24 hr 01/29/22 01/30/22 01/30/22 08:00 05:27 05:27 Hgb 8.4 L Hct 25.4 L Sodium 139 Potassium 3.6 Chloride 104 Carbon Dioxide 29.3 Anion Gap 5.7 BUN 14 Creatinine 1.1 Estimated GFR/1.73 m2 >= 60.00 Glucose 96 Calcium 8.4 L Magnesium 1.6 L Ferritin 124 Total Bilirubin 0.1 L Conjugated Bilirubin < 0.1 AST 47 H ALT 71 H Alkaline Phosphatase 36 L Total Protein 5.5 L Albumin 2.5 L Vitamin B12 470 Folate 4.0 L PAWSS Have you Been Recently Intoxicated or Drunk Within the Last 30 days?: Yes Have you Ever Experienced Previous Episodes of Alcohol Withdrawal?: Yes Have you ever Experienced Withdrawal Seizures?: No Have you ever Experienced Delirium Tremens(DT)s?: No Have you ever undergone Alcohol Rehabilitation Treatment (i.e, inpt ot outpatient treatment programs)?: Yes Have you ever Experienced Blackouts?: Yes Have you ever Combined Alcohol with other Downers within the last 90 days?: No Have you ever Combined Alcohol with any other Substance of Abuse during the last 90 days?: No Positive Blood Alcohol level on Presentation? [PCS.BAL]: No Evidence of Increased Autonomic Activity (i.e. HR>120, tremor, sweating, agitation, nausea)?: No Result: 4
[2022-01-30] MEDS: Normal Saline 500 ML 30 ML IV (09:22)
[2022-01-30] MEDS: MAGNESIUM SULFATE 2 GM/50 ML BAG IVPB (09:22)
[2022-01-30 11:37] VITALS: BP 157/89; PULSE 67; RESP 12; TEMP 36.4; O2SAT 98
--- NOTE | 2022-01-30 11:47 | PGE_ITS ---
Date of Service Date of service: 01/30/22 Time of Service: 10:55 Assessment and Plan Assessment and plan (1) Alcohol withdrawal: Status: Acute Assessment and plan: Continue scheduled librium + prn ativan per ciwa. 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 Interested in staying quit - and, therefore, would benefit from a librium taper on discharge. Please, let the hospitalist know if/when the patient is being discharged - we will write that prescription. (2) Melena: Status: Acute Assessment and plan: H/H relatively stable. Await results of the colonoscopy. On IV PPI. Defer to primary team (3) Acute anemia: Status: Acute Assessment and plan: H/H stable. Continue B12 and folate repletion. (4) Asthma: Status: Chronic Assessment and plan: CXR ok. Provide prn albuterol. Advised to quit smoking. Subjective Subjective Interval history since last seen: Mr Li feels well today. He is only slightly shaky. CIWA scores mostly 0, but was 5 this morning. Received 1 mg of lorazepam this morning in addition to the librium. He denies dizziness, chest pain, shortness of breath, nausea. Had a dark brown BM today. His intention is to abstain from alcohol when he returns home. He has a good support network including a senior coldfusion developer that is affiliated with the . Colonoscopy done yesterday - results not available for my review. Exam Narrative Exam Narrative: General: Pleasant middle-aged male who is very minimally tremulous, A&Ox3, NAD HEENT: EOMI, MMM Heart: RRR, no m/r/g Lungs: expiratory wheezing B has improved Abdomen: soft, nontender, nondistneded Extremities: no edema Objective Last Vital Signs Temp 36.5 C 01/30/22 07:30 Pulse 98 H 01/30/22 07:30 Resp 12 01/30/22 07:30 BP 144/89 H 01/30/22 07:30 Pulse Ox 98 01/30/22 07:30 Laboratory Results - last 24 hr 01/30/22 01/30/22 05:27 05:27 Hgb 8.4 L Hct 25.4 L Sodium 139 Potassium 3.6 Chloride 104 Carbon Dioxide 29.3 Anion Gap 5.7 BUN 14 Creatinine 1.1 Estimated GFR/1.73 m2 >= 60.00 Glucose 96 Calcium 8.4 L Magnesium 1.6 L Total Bilirubin 0.1 L Conjugated Bilirubin < 0.1 AST 47 H ALT 71 H Alkaline Phosphatase 36 L Total Protein 5.5 L Albumin 2.5 L PAWSS Have you Been Recently Intoxicated or Drunk Within the Last 30 days?: Yes Have you Ever Experienced Previous Episodes of Alcohol Withdrawal?: Yes Have you ever Experienced Withdrawal Seizures?: No Have you ever Experienced Delirium Tremens(DT)s?: No Have you ever undergone Alcohol Rehabilitation Treatment (i.e, inpt ot outpatient treatment programs)?: Yes Have you ever Experienced Blackouts?: Yes Have you ever Combined Alcohol with other Downers within the last 90 days?: No Have you ever Combined Alcohol with any other Substance of Abuse during the last 90 days?: No Positive Blood Alcohol level on Presentation? [PCS.BAL]: No Evidence of Increased Autonomic Activity (i.e. HR>120, tremor, sweating, agitation, nausea)?: No Result: 4
[2022-01-30] MEDS: PANTOPRAZOLE 80 MG in Normal Saline 100 ML 10 MG IV (12:12)
--- NOTE | 2022-01-30 12:53 | DSE_ITS ---
Date of service: 01/30/22 Time of Service: 12:53 DS: Diagnosis Discharge Diagnosis (1) Melena: Status: Acute Asessment and Plan: The etiology of the acute gastrointestinal hemorrhage and melena remain uncertain. He has Dumont's esophagus which is certainly a risk factor for upper GI hemorrhage, but the gastroscopy was normal. Colonoscopy also failed to reveal source. We talked about other diagnoses including things like Meckel's diverticulum, AV malformations, and malignancies. For now, we can reassess over the next few weeks to see if there is any more evidence of bleeding, at which point he will need an outpatient work-up. (2) Alcohol withdrawal: Status: Acute Asessment and Plan: Initiated Librium taper, which will continue after discharge (3) Acute anemia: Status: Acute Asessment and Plan: The anemia seems to be secondary to chronic alcoholism, and possibly gastrointestinal hemorrhage. This point there is no evidence of active bleeding, and hemoglobin is stabilized. Discharge Plan Disposition Patient Disposition: HOME Condition: Good Discharge Details Reason For Visit: GI Bleed Admit Date/Time: 01/28/22 10:37 Admit Provider: Rom Martin Attending Provider: Rom Martin Primary Care Provider: Celeste Christiansen Hospital Course Hospital Course: Bruce is a 46-year-old male came into the emergency department with a chief complaint of bright red blood per rectum. He said this was preceded by several days of melena. He underwent emergent upper endoscopy which demonstrated some evidence of Dumont's esophagus but no clear source of bleeding. We performed an emergency bowel preparation, and the following day he underwent a colonoscopy which also failed to reveal a compelling source of bleeding. Hemoglobin had stabilized, and there was no more evidence of any bright red blood per rectum or melena. Home Meds and New Rx's Prescriptions: New chlordiazepoxide HCl 25 mg capsule 25 mg PO Q6H Qty: 8 0RF Rx Instructions: take a 25 mg pill by mouth every 6 hours for 2 days, then take a 10 mg pill by mouth every 6 hours for 2 days, then take a 5 mg pill by mouth every 6 hours for 1 day then stop chlordiazepoxide HCl 10 mg capsule 10 mg PO Q6H Qty: 8 0RF Rx Instructions: take a 25 mg pill by mouth every 6 hours for 2 days, then take a 10 mg pill by mouth every 6 hours for 2 days, then take a 5 mg pill by mouth every 6 hours for 1 day then stop chlordiazepoxide HCl 5 mg capsule 5 mg PO Q6H PRNQty: 4 0RF Rx Instructions: take a 25 mg pill by mouth every 6 hours for 2 days, then take a 10 mg pill by mouth every 6 hours for 2 days, then take a 5 mg pill by mouth every 6 hours for 1 day then stop buspirone 5 mg Tablet 20 mg PO TID Qty: 90 0RF bupropion HCl 150 mg Tablet Sustained-Release 12 Hr 150 mg PO BID Qty: 60 0RF Continued albuterol sulfate [Proventil HFA] 90 mcg/actuation HFA aerosol inhaler 2 puff IH Q6H PRN (Reason: shortness of breath or wheezing) Qty: 18 12RF bupropion HCl 150 mg tablet sustained-release 12 hr 150 mg PO BID Qty: 180 3RF buspirone 10 mg tablet 20 mg PO TID Qty: 540 3RF melatonin 1 mg Tablet 2 mg PO .QHS Discharge Instructions Instructions: Gastrointestinal Bleeding (DC) Additional Instructions: 1. Follow up with primary care physican in 2-3 weeks Stand Alone Forms: Nursing Discharge Form Referrals: Celeste Christiansen NP [Primary Care Provider] - 02/21/22 10:30 am Activity:: Activity as Tolerated Equipment/Supplies:: No Equipment Needed Diet:: As Tolerated Discharge Orders Discharge Orders: Discharge Order (Routine); Ordered 01/30/22 Ordered By: Rom Martin Discharge Data Discharge Date/Time-TO BE ENTERED AT DEPARTURE: 01/30/22 14:11 DS: Summary Summary Time spent discussing smoking cessation with patient: 3 to 10 minutes Time Spent with Patient providing and/or coordinating discharge services: Greater than 30 minutes Status at Discharge Functional status at discharge: independent ambulation Overall status at discharge: patient is back to baseline Mental Status: mental status grossly normal Speech and Movement: speech and movement normal Mood: congruent mood Affect: normal affect Exam Const General: cooperative, healthy appearing and no acute distress Nutritional Appearance: average body habitus and well nourished Orientation: alert, awake and oriented x3 Eyes General: appearance normal, both eyes and all related structures Chest Chest: normal inspection of the chest Resp Effort & Inspection: normal respiratory effort and cough Auscultation: clear to auscultation bilaterally Cardio Jugular venous pressure: no JVD Rate: regular rate GI Inspection: normal to inspection and non-distended Palpation: soft, no guarding, no hernias and no masses Percussion: normal to percussion Auscultation: normal bowel sounds Skin General skin exam: no rashes or lesions noted Neuro General: patient alert, patient awake and patient oriented x3 Extrem Right upper extremity: no edema Left upper extremity: no edema Right lower extremity: no edema Left lower extremity: no edema Psych Appearance: grossly normal Mental Status: mental status grossly normal Speech and Movement: speech and movement normal Mood: congruent mood Affect: normal affect DS: Data Vitals/I&O Vitals and I&O: Vital Signs Temperature 97.5 F L 01/30/22 11:37 Temperature Source Tympanic 01/30/22 11:37 Pulse 67 01/30/22 11:37 Pulse Rhythm Regular 01/30/22 07:30 Pulse 114 H 01/29/22 18:00 Respiratory Rate 12 01/30/22 11:37 Respiratory Effort 01/30/22 07:30 Respiratory Depth Normal 01/30/22 07:30 Respiratory Pattern Normal 01/30/22 07:30 Blood Pressure 157/89 H 01/30/22 11:37 Blood Pressure Mean 109 01/29/22 14:00 Blood Pressure Position Sitting 01/29/22 11:23 Pulse Oximetry 98 01/30/22 11:37 Oxygen Delivery Method Room Air 01/30/22 11:37 Oxygen Flow Rate 0 01/30/22 11:37 Pain Level 0 01/30/22 11:37 Intake & Output 01/29/22 01/30/22 01/30/22 23:59 11:59 23:59 Intake Total 3063.701 / 5186.034 637.866 / 637.866 0 / 637.866 Output Total 1220 / 4495 1325 / 1325 Balance 1843.701 / 691.034 -687.134 / -687.134 0 / -687.134 Weight 168 lb 13.985 oz Intake: IV 2023.701 / 2946.034 637.866 / 637.866 0 / 637.866 Oral 1040 / 2240 Output: Urine 1200 / 2925 1325 / 1325 Stool 20 / 1570 Other: Urine Color Pale Straw Urine Appearance Cloudy Clear Urine Odor None Normal Stool Size Smear Stool Characteristics Liquid Voiding Methods Urinal Urinal Data Completed and Pending Labs on day of discharge: Labs from last 24 hours 01/30/22 01/30/22 05:27 05:27 Hgb 8.4 L Hct 25.4 L Sodium 139 Potassium 3.6 Chloride 104 Carbon Dioxide 29.3 Anion Gap 5.7 BUN 14 Creatinine 1.1 Estimated GFR/1.73 m2 >= 60.00 Glucose 96 Calcium 8.4 L Magnesium 1.6 L Total Bilirubin 0.1 L Conjugated Bilirubin < 0.1 AST 47 H ALT 71 H Alkaline Phosphatase 36 L Total Protein 5.5 L Albumin 2.5 L PFSH All Active Problems Acute anemia (Acute) Alcohol withdrawal (Acute) Melena (Acute) Laceration (Acute) Cubital tunnel syndrome (Acute) Asthma (Chronic) Tobacco use disorder, continuous (Acute 06/17/17) Substance abuse (Acute 05/15/17) MICHELLE (generalized anxiety disorder) (Acute 05/15/17) Family history of breast cancer (Acute 06/04/17) Mother Essential hypertension (Acute 05/15/17) ETOH abuse (Acute 05/15/17) [place] 11/29/15-12/04/15 Attention deficit disorder (Acute 05/15/17) Medical History Alcohol dependence Alcohol use disorder Attention deficit disorder (ADD) in adult Family History Mother Depression Neoplasm Breast Father Alcohol abuse Essential hypertension Heart disease Brother Alcohol abuse Social History Smoking/Tobacco Use Status: Current every day Tobacco Type: cigarettes and smokeless tobacco Tobacco: How many years used: 30 Smokeless tobacco user: chewing tobacco Quit status: considering quitting Smoking risk assessment performed?: Yes Alcohol Intake: current Alcohol Intake frequency: 3 or more drinks per day Alcohol type: beer and hard liquor Drug use: Occasionally Substance use type: marijuana Household members: significant other Housing: apartment Number of Children: 1 Communication Needs: None current occupation: [employer] Pets and animals: Yes Sexually active: Yes Do you think of yourself as: straight/heterosexual Current gender identity: male What is your relationship status?: living with partner Panel score (0-1 are the most socially isolated patients): 1 What type of physical activity do you participate in: other Details: Work Frequency: 5-6 times per week Seatbelt use: always Helmet use: Yes Helmet use: always Drive intox or ride w/intox 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
--- NOTE | 2022-01-30 16:46 | PDOC.CMDIS ---
- If Service Date Differs Date of service: 01/30/22 Time of Service: 16:46 LACE Index Scoring Tool - Questions: Length of Stay (in days): 2 Acuity (Admit via E.D.?): Yes E.D. Visits: 4 - Answers: Total Score: 9 Risk of Readmission: Low Risk Care Management Discharge Reason for Hospitalization: GI Bleed Discharge Plan: Cristobal returned home today with no new services. His s/o drove him home via private vehicle. He will follow up with his PCP and discharge plan of care. He was happy to go home. Patient/Family Education Needs: Review discharge instructions and limitations, discussion of self care needs including ask me three.
--- NOTE | 2022-01-30 23:32 | W.COLOREPORT ---
Colonoscopy Report Date of procedure: 01/29/22 Pre-op diagnosis general: Acute GI bleed/melena Post-op diagnosis procedure note: other (Diverticula and rectal polyp) Surgeon: Jami Charles Anesthesia Type: General:No Airway Estimated blood loss (mL): 1 Pathology: other Complications: None Disposition: same day Prep: Miralax/Dulcolax Retraction Time: 12 Procedure Description: After informed consent was obtained the patient was taken to the procedure room and placed in a left decubitous position. Monitors were applied and a time out was done. The patients name, date of , procedure, allergies to medications and metal in their body was reviewed. The patient was then sedated. Once sedated and comfortable a rectal exam was done. External exam reveals minor external hemorrhoids internal exam revealed a normal sphincter tone and no palpable masses. The prostate nl. The scope was then introduced and retrofelexed. No internal hemorrhoids were identified. The scope was then advanced to the cecum without difficulty. The TI and appendiceal orifice were identified. The prep was BB PS 3 in all segments for a total of 9. The scope was then slowly retracted over 12 minutes back into the rectum. He does have mild diverticula confined in the sigmoid colon. There is no signs of active or old bleeding. The pockets are quite small. There is some melanotic stool still in the cecal right colon region but again this appears to be old blood. There is no signs of any bleeding active bleeding within the colon. He does have a small flat 5 mm polyp in the rectum. This is removed with a cold biting forcep.. All specimens are retrieved and no bleeding is noted.. The scope was removed and the patient was woken up and taken back to Same day surgery in stable condition. The patient tolerated the procedure well and there were no immediate complications. Follow up: The patient should follow up in 5-7 years unless they develop changes in bowel habits or other new gastrointestinal complaints.
--- NOTE | 2022-02-05 17:01 | NUR.NOTE ---
In chart for an educational ICU chart documentation review. Nursing Note:
== END 2022-01-30 14:11 | disposition home or self-care (01) | DRG 378 ==
LOC: ER 10:59 → ICU 11:28 → MS 01-30 11:01
PROVIDERS: Internal Medicine; Surgery; Admitting Provider Surgery; Emergency Provider Student in an Organized Health Care Education/Training Program; PCP Nurse Practitioner; Visit Provider Surgery
PROC: 0DJ68ZZ Inspection of Stomach, Via Natural or Artificial Opening Endoscopic (ICD-10-PCS; CPT 43235; principal; 2022-01-28 14:30)
PROC: 0DJD8ZZ Inspection of Lower Intestinal Tract, Via Natural or Artificial Opening Endoscopic (ICD-10-PCS; CPT 45378; principal; 2022-01-29 17:00)
DX: K92.1 Melena (principal); F10.139 Alcohol abuse with withdrawal, unspecified; K62.1 Rectal polyp; K57.30 Diverticulosis of large intestine without perforation or abscess without bleeding; I10 Essential (primary) hypertension; F17.210 Nicotine dependence, cigarettes, uncomplicated; F98.8 Other specified behavioral and emotional disorders with onset usually occurring in childhood and adolescence; J45.909 Unspecified asthma, uncomplicated; F10.10 Alcohol abuse, uncomplicated; F17.220 Nicotine dependence, chewing tobacco, uncomplicated; F41.1 Generalized anxiety disorder; R11.2 Nausea with vomiting, unspecified; K22.70 Barrett's esophagus without dysplasia; D64.89 Other specified anemias; D50.0 Iron deficiency anemia secondary to blood loss (chronic); K20.90 Esophagitis, unspecified without bleeding
CPT/HCPCS: 45380; 43235; 36415; 80048; 80053; 80076; 83690; 86850; 86900; 86901; 87635; 88305; 96361; 96374; 96375; 99285; 71045; 82607; 82728; 82746; 83540; 83550; 83735; 84484; 85014; 85018; 85025; 85610; 99232; 99252; J1100; J2354; J2405; J2704; J2765; J3010; J3420; J3490

== ENCOUNTER 2022-02-28 15:47 | Outpatient (REF) | payer BC, SELFPAY ==
[2022-02-28 19:06] LABS: HCT 38.2 % (40.0-50.0); HGB 12.2 g/dL (13.5-17.5); MCH 30.7 pg (27.0-33.0); MCHC 31.9 % (32.0-36.0); MCV 96 fL (80-95); MPV 10.1 fL (8.0-11.0); Platelet Count 339 10^3/uL (130-400); RBC 3.98 10^6/uL (4.36-5.78); RDW 15.1 % (11.8-14.1); RDW-SD 54.2 fL; WBC 6.14 10^3/uL (4.4-10.8)
[2022-02-28 19:20] LABS: ALT 63 U/L (16-63); AST 54 U/L (15-37); Albumin 3.1 g/dL (3.4-5.0); Alkaline Phosphatase 56 U/L (46-116); Anion Gap 13.2 mmol/L (3-11); BUN 14 mg/dL (7-18); Bilirubin, Total 0.1 mg/dL (0.2-1.0); CO2 26.8 mmol/L (21.0-32.0); CREATININE 1.1 mg/dL (0.70-1.30); Calcium 8.8 mg/dL (8.5-10.1); Calculated LDL 55 mg/dL (<100); Chloride 107 mmol/L (98-107); Cholesterol 200 mg/dL (<200); Estimated GFR 83.32 (mL/min/1.73m2); Glucose 106 mg/dL (74-106); HDL Cholesterol 129 mg/dL (40-60); Potassium 3.8 mmol/L (3.5-5.1); Sodium 147 mmol/L (136-145); Total Protein 6.6 g/dL (6.4-8.2); Triglyceride 83 mg/dL (<150)
== END 2022-02-28 15:48 | disposition home or self-care (01) ==
LOC: LBN 15:47
PROVIDERS: PCP Nurse Practitioner; Visit Provider Nurse Practitioner
DX: D64.9 Anemia, unspecified (principal); K92.2 Gastrointestinal hemorrhage, unspecified; Z00.00 Encounter for general adult medical examination without abnormal findings; Z13.220 Encounter for screening for lipoid disorders
CPT/HCPCS: 80053; 80061; 85027

== ENCOUNTER 2022-03-01 08:21 | Outpatient (REF) | payer BC, SELFPAY ==
[2022-03-01 09:29] LABS: Bilirubin Negative (Negative); Blood Trace-intact (Negative); Clarity Clear (Clear); Glucose 500 mg/dL (Negative); Ketones Negative (Negative); Leukocyte Esterase Negative (Negative); Nitrite Negative (Negative); Specific Gravity 1.025 (1.005-1.025); Urobilinogen 0.2 EU/dL (Up TO 0.2)
[2022-03-01 09:58] LABS: Bacteria Rare HPF (Negative); C & S Indicated? C&S Done As Ordered; Casts 3-5 Hyaline LPF (Negative); Crystals Negative HPF (Negative); Epithelial Cells Rare HPF (Negative); Mucus Negative (Negative); RBC 0-2 HPF (0-2); WBC Negative HPF (0-5)
== END 2022-03-01 08:22 | disposition home or self-care (01) ==
LOC: LBN 08:21
PROVIDERS: PCP Nurse Practitioner; Visit Provider Nurse Practitioner
DX: M54.9 Dorsalgia, unspecified (principal)
CPT/HCPCS: 81003; 81015; 87086

== ENCOUNTER 2022-08-29 02:21 | Emergency (ER) | payer BC, SELFPAY ==
[2022-08-29] VITALS (30 sets, daily range): BP systolic 131–176; BP diastolic 90–112; PULSE 90–127; RESP 4–34; O2SAT 93–100
--- NOTE | 2022-08-29 02:15 | RT.EKG_ITS ---
APPROVED REPORT Exam: Resting ECG Reason for Exam: chest pain Patient Location: E HR:107 bpm ECG Measurements Heart Rate 107 AXIS ME 164 P 62 QRSd 91 QRS 87 QT 323 T 12 QTc 432 Conclusion Ventricular-paced complexes...other complexes also detected Physician: no pacer. no stemi
--- NOTE | 2022-08-29 02:30 | DI.CT_ITS ---
Exam(s) CT CHEST PE CTA EXAM: CT CHEST PE CTA CLINICAL HISTORY: L chest pain 1 month, SOB, pleuritic, r/o PE. TECHNIQUE: Imaging Protocol: Axial CT angiography was performed with multi-slice acquisition and mu lti-planar and/or 3D reconstructions. CONTRAST MATERIAL: Intravenous: Omnipaque 350 contrast volume:100 mL COMPARISON: CR XR PORTABLE CHEST AP from 01/29/2022 FINDINGS: Tracheobronchial tree: Patent where visualized. Pulmonary parenchyma: Small peripheral infiltrates are seen in the left upper and left lower lobe. A telectatic changes are seen in the lung bases bilaterally. There is a left hilar mass present it jose r sures 2.5 x 2.6 cm. There is encasement and encircling of a branch of the pulmonary artery to the ri ght upper lobe. Pulmonary Arteries: No evidence of filling defect to suggest pulmonary emboli. Mediastinum and Bryanna: There is left hilar adenopathy. There is a left lymph node measuring 1.7 x 1.5 cm. The esophagus is unremarkable. Visualized thyroid gland: Unremarkable. Pleura: No effusion or pneumothorax. Heart: The heart is not dilated. Coronary artery calcification is present. No pericardial effusion. Aorta: Thoracic aorta non-dilated. No evidence of dissection. Atherosclerosis is present. Upper abdomen: There is a 2.2 x 2.1 cm simple cyst in the superior pole of the right kidney. No fol low-up is recommended. Soft tissues: Unremarkable. Bones: Within normal limits for the patient's age. IMPRESSION: 1. No evidence of pulmonary embolism, thoracic aortic dissection or aneurysm. 2. Soft tissue in the left hilum compressing a branch of a right upper lobe pulmonary artery. While this may represent adenopathy, endings are suspicious for left hilar mass. Neoplasm should be suspec fernando. A PET-CT scan should be considered for further evaluation. 3. Left hilar and mediastinal adenopathy. 4. Peripheral infiltrate seen in the left upper lobe. This may be infectious. Peripheral infarcts m ay also be considered. Unexpected findings RADIATION DOSE DELIVERED: Total DLP DATA REPOSITORY: All CT scans at this facility are submitted to the National Radiology Data Registry (NRDR) Dose Index Registry (DIR) with the [employer] (ACR). RADIATION OPTIMIZATION: All CT scans at this facility use at least one of these dose optimization te chniques: automated exposure control; mA and/or kV adjustment per patient size (includes targeted exa ms where dose is matched to clinical indication); or iterative reconstruction.
--- NOTE | 2022-08-29 02:35 | ED.GENADUL_ITS ---
Discharge Plan Disposition Patient Disposition: Home Discharge Details Clinical Impression: Mass of left lung, Adenopathy, hilar, Infarctions, pulmonary, Asthma exacerbation Primary Care Provider: Celeste Christiansen ED Provider: Nnamdi Andujar Home Meds and New Rx's Prescriptions: No Action buspirone 10 mg tablet 20 mg PO TID Qty: 180 3RF bupropion HCl [Wellbutrin XL] 150 mg tablet extended release 24 hr 150 mg PO QAM Qty: 90 1RF trazodone 50 mg tablet 50 mg PO QHS PRN naltrexone 50 mg tablet 50 mg PO DAILY disulfiram 250 mg tablet 500 mg PO DAILY lisinopril 10 mg tablet 10 mg PO DAILY Qty: 90 3RF albuterol sulfate [Proventil HFA] 90 mcg/actuation HFA aerosol inhaler 2 puff IH Q6H PRN (Reason: shortness of breath or wheezing) Qty: 18 12RF melatonin 1 mg Tablet 2 mg PO .QHS Discharge Instructions Instructions: Asthma (ED) Additional Instructions: At this time as we discussed together there is concern that there may be a small mass encroaching on one of your pulmonary arteries. A consult has been placed with [facility]. They will be contacting you this week. Please follow-up closely with them at your scheduled appointment. In the meantime please take the Symbicort inhaler that we have given you, 2 puffs every 12 hours for the next week. If you notice any worsening of your symptoms, or any new symptoms such as vomiting, diarrhea, fever, chills, shortness of breath, chest pain, numbness, weakness, or fainting , please return immediately to the emergency department for reevaluation. Please follow up with your primary care provider as soon as possible for reassessment and reevaluation. As always, it was a pleasure participating in your medical care today. Referrals: Celeste Christiansen, GIS MAPPING TECHNICIAN [Primary Care Provider] - Medical Decision Making This is a pleasant 47-year-old male with a past medical history of hypertension, tobacco use, reactive airway disease, who presents today for evaluation of chest pain. Patient states he went on a detox from alcohol about 1 month ago. Shortly after that he noticed some left-sided chest pain. It was worse when taking a deep breath. It was momentarily improved when he would lean forward but would then otherwise return. It was worsened when he bent over, or lies flat. He also noted associated shortness of breath. Pain was gradually worsened throughout the last month, becoming notably severe with any mild breath. He denies any vomiting. He denies any diarrhea, dark or melanotic stool. He denies any medication changes. He has not been taking his inhaler at home. No other complaints at this time. No history of trauma. No personal history or family history of cardiac disease blood clots or lung cancer. Exam demonstrates wheezes throughout, splinting on the left, mild crackles on the left. Bedside ultrasound demonstrates B-lines for the left mid to upper lung retana. Decreased lung sliding, however lung sliding is still mildly present. Certainly decreased compared to the right side though. Differential is concerning for PE, less likely small pneumothorax. Pneumonia or tumor is also on the differential. Will evaluate for these etiologies. Give breathing treatments, Toradol, monitor closely and reassess. ACS and STEMI less likely. EKG is stable. 6:18 AM On reassessment patient is feeling much better. Heart rate is down to the 90s. Wheezes have completely resolved after breathing treatment. Patient states that his pain is improved subjectively as well. Laboratory work-up demonstrates stable labs, troponin normal, proBNP normal suggesting no evidence of strain. Lipase normal. CT scan does show some notable abnormalities, including a left upper lobe pulmonary artery that is occluded as is passes through the left superior hilar lymphadenopathy. Suspect extrinsic compression. Concern for small pulmonary infarcts associated with this. I did reach out to [facility] pulmonology and discussed the case with Dr. Starkey. She would like to see the patient in close follow-up in the next few days. She does not recommend any anticoagulation at this time. She is concern for malignancy. They recommend close follow-up. They will be contacting the patient. I did confirm his contact information. Otherwise patient is notably stable. Vital signs stable. No evidence of hypoxemia or respiratory distress. Will send home with Symbicort inhaler for the asthma component. I have extensively reviewed the treatment plan and discharge instructions with the patient. I have addressed all patient concerns at this time. The patient was made aware of what symptoms to monitor for that would warrant a return to the emergency department. Discussed the plan with the patient, they demonstrate verbal understanding and agreement with our assessment and plan at this time. The documentation in this chart was dictated using Dragon dictation software. Please excuse any dictation errors. FINDINGS: Pulmonary arteries: The left upper lobe pulmonary artery is occluded as it passes through left superior hilar lymphadenopathy, coronal MIP series 5, image 47. This is likely not secondary to thromboembolic phenomenon, but rather extrinsic compression. A segmental branch of the left upper lobe pulmonary artery remains patent, coronal MIP series 5, image 51. Aorta: Unremarkable. No aortic aneurysm. No aortic dissection Lungs: Mild patchy left upper lobe ground-glass opacity may be secondary to infectious etiology, or more likely, small infarcts. Pleural spaces: Unremarkable. No pneumothorax. No pleural effusion. Heart: Unremarkable. No cardiomegaly. No pericardial effusion. Lymph nodes: There is mediastinal and superior left hilar lymphadenopathy, with an AP window node up to 1.6 cm in short axis. Bones/joints: Unremarkable. No acute fracture. Soft tissues: Unremarkable. IMPRESSION: 1. Mediastinal and superior left hilar lymphadenopathy. 2. Left upper lobe pulmonary artery occluded as it passes through left superior hilar lymphadenopathy, likely not secondary to thromboembolic phenomenon but rather extrinsic compression. 3. Mild patchy left upper lobe ground-glass opacity may be secondary to infectious etiology, but more likely represent small infarcts. Thank you for allowing us to participate in the care of your patient. Dictated and Authenticated by: Margarito Zhang MD 08/29/2022 5:32 AM Eastern Time ([place] & [place]) HPI General Date/Time Provider Initiated Documentation: 08/29/22 02:23 . HPI Narrative: This is a pleasant 47-year-old male with a past medical history of hypertension, tobacco use, reactive airway disease, who presents today for evaluation of chest pain. Patient states he went on a detox from alcohol about 1 month ago. Shortly after that he noticed some left-sided chest pain. It was worse when taking a deep breath. It was momentarily improved when he would lean forward but would then otherwise return. It was worsened when he bent over, or lies flat. He also noted associated shortness of breath. Pain was gradually worsened throughout the last month, becoming notably severe with any mild breath. He denies any vomiting. He denies any diarrhea, dark or melanotic stool. He denies any medication changes. He has not been taking his inhaler at home. No other complaints at this time. No history of trauma. No personal history or family history of cardiac disease blood clots or lung cancer. Related Data Home Medications Medication Instructions Recorded Confirmed melatonin 1 mg tablet 2 mg PO .QHS 08/22/21 08/29/22 bupropion HCl 150 mg 24 hr tablet, 150 mg PO QAM #90 tabs 02/28/22 08/29/22 extended release (Wellbutrin XL) buspirone 10 mg tablet 20 mg PO TID #180 tabs 02/28/22 08/29/22 albuterol sulfate 90 mcg/actuation 2 puff inhalation Q6H PRN 05/30/22 08/29/22 aerosol inhaler (Proventil HFA) shortness of breath or wheezing #18 grams disulfiram 250 mg tablet 500 mg PO DAILY 08/12/22 08/29/22 lisinopril 10 mg tablet 10 mg PO DAILY #90 tabs 08/12/22 08/29/22 naltrexone 50 mg tablet 50 mg PO DAILY 08/12/22 08/29/22 trazodone 50 mg tablet 50 mg PO QHS PRN 08/12/22 08/29/22 Previous Rx's Medication Instructions Recorded bupropion HCl 150 mg 24 hr tablet, 150 mg PO QAM #90 tabs 02/28/22 extended release (Wellbutrin XL) buspirone 10 mg tablet 20 mg PO TID #180 tabs 02/28/22 albuterol sulfate 90 mcg/actuation 2 puff inhalation Q6H PRN 05/30/22 aerosol inhaler (Proventil HFA) shortness of breath or wheezing #18 grams lisinopril 10 mg tablet 10 mg PO DAILY #90 tabs 08/12/22 Allergies Allergy/AdvReac Type Severity Reaction Status Date / Time No Known Drug Allergies Allergy Verified 08/12/22 09:25 General Stated Complaint: Chest Pain TANG: 3 Review of Systems All systems reviewed & are unremarkable except as noted in HPI and below PFSH All Active Problems (Updated 08/29/22 @ 06:26 by Nnamdi Andujar DO) Adenopathy, hilar (Acute) Infarctions, pulmonary (Acute) Asthma exacerbation (Acute) Mass of left lung (Acute) Hyperplastic colon polyp (Acute) GI bleed (Chronic) Acute anemia (Acute) Alcohol withdrawal (Acute) Cubital tunnel syndrome (Acute) Substance abuse (Acute 05/15/17) Medical History Alcohol dependence Alcohol use disorder Asthma Attention deficit disorder (05/15/17) Attention deficit disorder (ADD) in adult Essential hypertension (05/15/17) Family history of breast cancer (06/04/17) Mother MICHELLE (generalized anxiety disorder) (05/15/17) Laceration Tobacco use disorder, continuous (06/17/17) Surgical History History of colonoscopy (~12/2021) Family History Mother Depression Neoplasm Breast Father Alcohol abuse Essential hypertension Heart disease Brother Alcohol abuse Social History Smoking/Tobacco Use Status: Current every day Tobacco Type: cigarettes and smokeless tobacco Tobacco: How many years used: 30 Smokeless tobacco user: chewing tobacco Quit status: considering quitting Smoking risk assessment performed?: Yes Alcohol Intake: current Alcohol Intake frequency: 3 or more drinks per day Alcohol type: beer and hard liquor Drug use: Occasionally Substance use type: marijuana Household members: significant other Housing: apartment Number of Children: 1 Communication Needs: None current occupation: [employer] Pets and animals: Yes Sexually active: Yes Do you think of yourself as: straight/heterosexual Current gender identity: male What is your relationship status?: living with partner Panel score (0-1 are the most socially isolated patients): 1 What type of physical activity do you participate in: other Details: Work Frequency: 5-6 times per week Seatbelt use: always Helmet use: Yes Helmet use: always Drive intox or ride w/intox taxi driver: No Working smoke detector in home: Yes Fire extinguisher in home: Yes Carbon monox detector in home: Yes Do you feel safe at home: Yes Do you feel safe in your relationship?: Yes Exam Narrative Exam Narrative: 1.Const: Well-nourished, Well-developed, appearing stated age 2.Eyes: PERRL, no conjunctival injection, and symmetrical lids. 3.ENT: Atraumatic external nose and ears. Moist MM. Neck: Symmetric, trachea midline, No thyromegaly. 4.CVS: +S1/S2, No murmurs or gallops. Peripheral pulses 2+ and equal in all extremities. Brisk capillary refill in all extremities. 5.RESP: Slightly labored respirations, notable splinting for the left chest. Mild wheezes throughout, questionable crackles on the left. No reproducible chest wall tenderness. 6.GI: Soft, Nontender/Nondistended, No hepatosplenomegaly. No guarding or rebound. 7.MSK: Normocephalic/Atraumatic, Extremities w/o deformity or ttp No cyanosis or clubbing, Normal movement of all extremities 8.Skin: Warm, Dry. No rashes or lesions. 9.Neuro: superintendent drivers II-XII grossly intact. Sensation grossly intact, no focal neurologic deficits. 10.Psych: (AAO) x3. Appropriate mood and affect Course Vital Signs Vital signs: Vital Signs Pulse 108 H 08/29/22 02:23 Respiratory Rate 22 08/29/22 02:23 Blood Pressure 176/112 H 08/29/22 02:23 Pulse Oximetry 96 08/29/22 02:23 Pulse 108 H 08/29/22 02:23 Respiratory Rate 22 08/29/22 02:23 Blood Pressure 176/112 H 08/29/22 02:23 Blood Pressure Position Sitting 08/29/22 02:23 Pulse Oximetry 96 08/29/22 02:23 Oxygen Delivery Method Room Air 08/29/22 02:23 Oxygen Flow Rate 0 08/29/22 02:23 Pain Level 8 08/29/22 02:23
[2022-08-29] MEDS: Normal Saline 1,000 ML 1000 ML IV (02:37)
[2022-08-29] MEDS: Ketorolac 15 MG/ML VIAL IVP (02:37)
[2022-08-29] MEDS: Albuterol/Ipratropium 3 ML UPD VIAL 6 ML UPD (02:40)
[2022-08-29 02:45] LABS: Abs Immature Grans 0.02 10^3/uL (0.0-0.06); Absolute Basophil Count 0.14 10^3/uL (0.0-0.2); Absolute Lymphocyte Count 3.25 10^3/uL (1.2-3.4); Absolute Monocyte Count 0.98 10^3/uL (0.1-0.8); Absolute Neutrophil Count 6.92 10^3/uL (1.2-6.7); Basophils % 1.2; Eosinophils % 2.6; HCT 46.2 % (40.0-50.0); HGB 15.9 g/dL (13.5-17.5); Immature Grans % 0.2; MCH 33.3 pg (27.0-33.0); MCHC 34.4 % (32.0-36.0); MCV 97 fL (80-95); MPV 10.5 fL (8.0-11.0); Monocytes % 8.4; Neutrophils % 59.6; Platelet Count 316 10^3/uL (130-400); RBC 4.78 10^6/uL (4.36-5.78); RDW 11.5 % (11.8-14.1); RDW-SD 41.5 fL; WBC 11.61 10^3/uL (4.4-10.8)
[2022-08-29 02:59] LABS: INR 0.9 (0.9-1.1); PTT Activated 30.4 sec (21.5-31.9); Prothrombin Time 9.4 sec (9.3-11.0)
[2022-08-29 03:09] LABS: ALT 25 U/L (16-63); AST 14 U/L (15-37); Albumin 3.2 g/dL (3.4-5.0); Alkaline Phosphatase 90 U/L (46-116); Anion Gap 7.7 mmol/L (3-11); BUN 16 mg/dL (7-18); Bilirubin, Total 0.2 mg/dL (0.2-1.0); CO2 27.3 mmol/L (21.0-32.0); CREATININE 1.1 mg/dL (0.70-1.30); Calcium 9.6 mg/dL (8.5-10.1); Chloride 105 mmol/L (98-107); Estimated GFR 82.81 (mL/min/1.73m2); Glucose 97 mg/dL (74-106); Lipase 52 U/L (16-77); NT-proBNP 33 pg/mL (<300); Potassium 4.2 mmol/L (3.5-5.1); Sodium 140 mmol/L (136-145); Total Protein 7.7 g/dL (6.4-8.2); Troponin I < 50 ng/L (<or=60)
[2022-08-29] MEDS: Omnipaque 350 MG/ML 100 ML BTL IJ (03:38)
[2022-08-29] MEDS: Normal Saline - Diluent 50 ML VIAL IJ (03:39)
--- NOTE | 2022-08-29 05:33 | DI.VRAD_ITS ---
Addendum created by Margarito Zhang MD on 08/29/2022 5:36:19 AM EST: The findings were verbally communicated via telephone conference with ANIBAL PEREZ at 5:36 AM EST on 08/29/2022. The findings were acknowledged and understood. Initial report created on 08/29/2022 5:32:16 AM EST: PROCEDURE INFORMATION: Exam: CTA Chest With Contrast Exam date and time: 08/29/2022 3:31 AM Age: 47 years old Clinical indication: Shortness of breath; Chest wall pain and left-sided; Additional info: L chest pain 1 month, SOB, pleuritic, R/O pe TECHNIQUE: Imaging protocol: Computed tomographic angiography of the chest with contrast. 3D rendering (Not supervised by radiologist): MIP and/or 3D reconstructed images were created by the technologist. Radiation optimization: All CT scans at this facility use at least one of these dose optimization techniques: automated exposure control; mA and/or kV adjustment per patient size (includes targeted exams where dose is matched to clinical indication); or iterative reconstruction. Contrast material: OMNI 350; Contrast volume: 100 ml; Contrast route: INTRAVENOUS (IV); COMPARISON: CR XR PORTABLE CHEST AP 01/29/2022 8:58 AM FINDINGS: Pulmonary arteries: The left upper lobe pulmonary artery is occluded as it passes through left superior hilar lymphadenopathy, coronal MIP series 5, image 47. This is likely not secondary to thromboembolic phenomenon, but rather extrinsic compression. A segmental branch of the left upper lobe pulmonary artery remains patent, coronal MIP series 5, image 51. Aorta: Unremarkable. No aortic aneurysm. No aortic dissection. Lungs: Mild patchy left upper lobe ground-glass opacity may be secondary to infectious etiology, or more likely, small infarcts. Pleural spaces: Unremarkable. No pneumothorax. No pleural effusion. Heart: Unremarkable. No cardiomegaly. No pericardial effusion. Lymph nodes: There is mediastinal and superior left hilar lymphadenopathy, with an AP window node up to 1.6 cm in short axis. Bones/joints: Unremarkable. No acute fracture. Soft tissues: Unremarkable. IMPRESSION: 1. Mediastinal and superior left hilar lymphadenopathy. 2. Left upper lobe pulmonary artery occluded as it passes through left superior hilar lymphadenopathy, likely not secondary to thromboembolic phenomenon but rather extrinsic compression. 3. Mild patchy left upper lobe ground-glass opacity may be secondary to infectious etiology, but more likely represent small infarcts. Dictated and Authenticated by: Margarito Zhang MD. Ordering:SHONA Coto MD
[2022-08-29 06:19] LABS: Troponin I < 50 ng/L (<or=60)
--- NOTE | 2022-08-29 06:35 | NUR.NOTE ---
Referral to Care Management to refer patient to [facility] Interventional Pulmonology merry. Dx new lung mass.Nursing Note:
--- NOTE | 2022-08-29 10:39 | CMACTNOTE_ITS ---
- If Service Date Differs Date of service: 08/29/22 Time of Service: 10:40 Care Management Activity Note Cristobal is seen in the ED for asthma exacerbation and a left lung mass. At the request of ED provider, MARTIN coordinates a referral to [facility] Interventional Pulmonology to assist Cristobal in obtaining an appointment for further evaluation and treatment of the lung mass. He has BCBS for insurance.
== END 2022-08-29 06:51 | disposition home or self-care (01) ==
PROVIDERS: Emergency Provider Student in an Organized Health Care Education/Training Program; PCP Nurse Practitioner
DX: J45.901 Unspecified asthma with (acute) exacerbation (principal); J98.4 Other disorders of lung; R59.0 Localized enlarged lymph nodes; I26.99 Other pulmonary embolism without acute cor pulmonale; I10 Essential (primary) hypertension; Z79.899 Other long term (current) drug therapy; F17.210 Nicotine dependence, cigarettes, uncomplicated
CPT/HCPCS: 36415; 71275; 80053; 83690; 93005; 94640; 96361; 96374; 99285; 83880; 84484; 85025; 85610; 85730; 93010; J1885; J3490; J7620

== ENCOUNTER 2022-11-13 00:37 | Outpatient (CLI) | payer BC, SELFPAY ==
--- NOTE | 2022-11-13 14:15 | DI.MRI_ITS ---
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 TECHNIQUE: Multiplanar multisequence MRI of the brain was performed. CONTRAST MATERIAL: IV Contrast: 15 ML of Dotarem contrast administered. COMPARISON: No exams were available for comparison FINDINGS: VENTRICLES AND EXTRA AXIAL SPACES: Normal in size and morphology for the patient's age. HEMORRHAGE: None. CEREBRAL PARENCHYMA: No focus of restricted diffusion to suggest acute infarct. No space-occupying le kya identified. MIDLINE SHIFT: None. BRAINSTEM/CEREBELLUM: Normal. CALVARIUM: Normal. ENHANCEMENT: No suspicious enhancement identified. VISUALIZED PARANASAL SINUSES/MASTOIDS: Clear. OTHER FINDINGS: None. IMPRESSION: Unremarkable MRI of the brain. DATA REPOSITORY:
[2022-11-13] MEDS: Gadoterate meglumine 20 ML VIAL 15 ML IVP (14:44)
[2022-11-13] MEDS: Normal Saline Flush 10 ML SYR IVP (14:45)
== END 2022-11-13 00:57 ==
LOC: DI 00:37
PROVIDERS: PCP Nurse Practitioner; Visit Provider Internal Medicine Medical Oncology
DX: C34.92 Malignant neoplasm of unspecified part of left bronchus or lung (principal)
CPT/HCPCS: 70553

== ENCOUNTER 2022-11-13 03:07 | Outpatient (CLI) | payer BC, SELFPAY ==
[2022-11-13 07:25] LABS: Abs Immature Grans 0.14 10^3/uL (0.0-0.06); Absolute Lymphocyte Count 2.64 10^3/uL (1.2-3.4); Absolute Monocyte Count 1.82 10^3/uL (0.1-0.8); Basophils % 0.7; Eosinophils % 1.4; HCT 37.3 % (40.0-50.0); HGB 12.4 g/dL (13.5-17.5); Immature Grans % 0.7; Lymphocytes % 13.9; MCHC 33.2 % (32.0-36.0); MCV 93 fL (80-95); MPV 8.8 fL (8.0-11.0); Monocytes % 9.6; Neutrophils % 73.7; Platelet Count 383 10^3/uL (130-400); RDW-SD 41.5 fL; WBC 18.97 10^3/uL (4.4-10.8)
[2022-11-13 07:38] LABS: Absolute Basophil Count 0.13 10^3/uL (0.0-0.2); Absolute Eosinophil Count 0.27 10^3/uL (0.0-0.7); Absolute Neutrophil Count 13.98 10^3/uL (1.2-6.7)
[2022-11-13 07:49] LABS: Diff Comment Diff Reviewed; RBC Morphology Normal
[2022-11-13 07:59] LABS: ALT 26 U/L (16-63); AST 13 U/L (15-37); Albumin 3.2 g/dL (3.4-5.0); Alkaline Phosphatase 104 U/L (46-116); Amylase 75 U/L (25-115); Anion Gap 9.4 mmol/L (3-11); BUN 21 mg/dL (7-18); Bilirubin, Total 0.4 mg/dL (0.2-1.0); CO2 27.6 mmol/L (21.0-32.0); CREATININE 1.6 mg/dL (0.70-1.30); Chloride 99 mmol/L (98-107); Estimated GFR 52.82 (mL/min/1.73m2); Glucose 86 mg/dL (74-106); Lipase 137 U/L (16-77); Potassium 4.2 mmol/L (3.5-5.1); Sodium 136 mmol/L (136-145); TSH 1.91 uIU/mL (0.36-3.74); Total Protein 7.5 g/dL (6.4-8.2)
[2022-11-13 08:04] LABS: Calcium 9.4 mg/dL (8.5-10.1)
== END 2022-11-13 03:08 | disposition home or self-care (01) ==
LOC: LBO 03:07
PROVIDERS: PCP Nurse Practitioner; Visit Provider Internal Medicine Medical Oncology
DX: C34.92 Malignant neoplasm of unspecified part of left bronchus or lung (principal); Z79.899 Other long term (current) drug therapy
CPT/HCPCS: 36415; 80053; 83690; 82150; 84443; 85025

== ENCOUNTER 2022-11-19 14:44 | Outpatient (CLI) | payer BC, SELFPAY ==
[2022-11-19 07:16] LABS: Abs Immature Grans 0.03 10^3/uL (0.0-0.06); Absolute Basophil Count 0.07 10^3/uL (0.0-0.2); Absolute Eosinophil Count 0.14 10^3/uL (0.0-0.7); Absolute Lymphocyte Count 2.27 10^3/uL (1.2-3.4); Absolute Monocyte Count 0.43 10^3/uL (0.1-0.8); Basophils % 0.6; Eosinophils % 1.3; HGB 11.6 g/dL (13.5-17.5); Immature Grans % 0.3; Lymphocytes % 20.8; MCH 31.1 pg (27.0-33.0); MCHC 34.1 % (32.0-36.0); MCV 91 fL (80-95); MPV 8.9 fL (8.0-11.0); Monocytes % 3.9; Neutrophils % 73.1; Platelet Count 344 10^3/uL (130-400); RBC 3.73 10^6/uL (4.36-5.78); RDW 11.7 % (11.8-14.1); RDW-SD 39.1 fL
[2022-11-19 07:17] LABS: Absolute Neutrophil Count 7.97 10^3/uL (1.2-6.7)
[2022-11-19 09:36] LABS: ALT 24 U/L (16-63); AST 14 U/L (15-37); Albumin 2.9 g/dL (3.4-5.0); Alkaline Phosphatase 92 U/L (46-116); Anion Gap 8.8 mmol/L (3-11); BUN 26 mg/dL (7-18); Bilirubin, Total 0.3 mg/dL (0.2-1.0); CO2 26.2 mmol/L (21.0-32.0); CREATININE 1.2 mg/dL (0.70-1.30); Calcium 9.4 mg/dL (8.5-10.1); Chloride 97 mmol/L (98-107); Glucose 98 mg/dL (74-106); Potassium 4.6 mmol/L (3.5-5.1); Sodium 132 mmol/L (136-145); Total Protein 7.6 g/dL (6.4-8.2)
== END 2022-11-19 14:45 | disposition home or self-care (01) ==
LOC: LBO 14:46
PROVIDERS: PCP Nurse Practitioner; Visit Provider Internal Medicine Medical Oncology
DX: C34.92 Malignant neoplasm of unspecified part of left bronchus or lung (principal)
CPT/HCPCS: 36415; 80053; 85025

== ENCOUNTER 2022-12-02 03:38 | Outpatient (CLI) | payer BC, SELFPAY ==
[2022-12-02 09:06] LABS: ALT 98 U/L (16-63); AST 30 U/L (15-37); Albumin 2.5 g/dL (3.4-5.0); Alkaline Phosphatase 176 U/L (46-116); Amylase 34 U/L (25-115); Anion Gap 7.7 mmol/L (3-11); BUN 17 mg/dL (7-18); Bilirubin, Total 0.1 mg/dL (0.2-1.0); CO2 29.3 mmol/L (21.0-32.0); CREATININE 1.1 mg/dL (0.70-1.30); Calcium 9.6 mg/dL (8.5-10.1); Chloride 102 mmol/L (98-107); Estimated GFR 82.81 (mL/min/1.73m2); Glucose 107 mg/dL (74-106); Lipase 37 U/L (16-77); Potassium 3.9 mmol/L (3.5-5.1); Sodium 139 mmol/L (136-145); TSH 0.08 uIU/mL (0.36-3.74); Total Protein 7.7 g/dL (6.4-8.2)
[2022-12-02 09:54] LABS: Abs Immature Grans 0.07 10^3/uL (0.0-0.06); Absolute Basophil Count 0.06 10^3/uL (0.0-0.2); Absolute Eosinophil Count 0.01 10^3/uL (0.0-0.7); Absolute Monocyte Count 1.16 10^3/uL (0.1-0.8); Absolute Neutrophil Count 7.34 10^3/uL (1.2-6.7); Basophils % 0.5; Eosinophils % 0.1; HCT 34.4 % (40.0-50.0); HGB 11.2 g/dL (13.5-17.5); Immature Grans % 0.5; Lymphocytes % 32.2; MCH 30.9 pg (27.0-33.0); MCHC 32.6 % (32.0-36.0); MCV 95 fL (80-95); MPV 9.1 fL (8.0-11.0); Monocytes % 9.1; Neutrophils % 57.6; RBC 3.62 10^6/uL (4.36-5.78); RDW 11.9 % (11.8-14.1); RDW-SD 40.9 fL; WBC 12.74 10^3/uL (4.4-10.8)
[2022-12-02 10:39] LABS: Platelet Count 674 10^3/uL (130-400)
[2022-12-02 10:40] LABS: Diff Comment Diff Reviewed; RBC Morphology Normal
== END 2022-12-02 03:39 | disposition home or self-care (01) ==
LOC: LBO 03:38
PROVIDERS: PCP Nurse Practitioner; Visit Provider Internal Medicine Medical Oncology
DX: C34.92 Malignant neoplasm of unspecified part of left bronchus or lung (principal); Z79.899 Other long term (current) drug therapy
CPT/HCPCS: 36415; 80053; 83690; 82150; 84443; 85025

== ENCOUNTER 2022-12-23 03:00 | Outpatient (CLI) | payer BC, SELFPAY ==
[2022-12-23 08:52] LABS: Abs Immature Grans 0.13 10^3/uL (0.0-0.06); Absolute Eosinophil Count 0.02 10^3/uL (0.0-0.7); Absolute Lymphocyte Count 3.39 10^3/uL (1.2-3.4); Absolute Monocyte Count 0.82 10^3/uL (0.1-0.8); Absolute Neutrophil Count 7.85 10^3/uL (1.2-6.7); Basophils % 0.2; Eosinophils % 0.2; HCT 33.8 % (40.0-50.0); HGB 11.2 g/dL (13.5-17.5); Immature Grans % 1.1; Lymphocytes % 27.7; MCH 31.3 pg (27.0-33.0); MCHC 33.1 % (32.0-36.0); MCV 94 fL (80-95); MPV 8.4 fL (8.0-11.0); Monocytes % 6.7; Neutrophils % 64.1; Platelet Count 425 10^3/uL (130-400); RBC 3.58 10^6/uL (4.36-5.78); RDW 13.7 % (11.8-14.1); RDW-SD 45.1 fL; WBC 12.24 10^3/uL (4.4-10.8)
[2022-12-23 08:59] LABS: Absolute Basophil Count 0.02 10^3/uL (0.0-0.2)
[2022-12-23 09:15] LABS: ALT 39 U/L (16-63); AST 12 U/L (15-37); Albumin 2.9 g/dL (3.4-5.0); Alkaline Phosphatase 114 U/L (46-116); Anion Gap 10.2 mmol/L (3-11); BUN 18 mg/dL (7-18); Bilirubin, Total 0.1 mg/dL (0.2-1.0); CO2 27.8 mmol/L (21.0-32.0); CREATININE 1.3 mg/dL (0.70-1.30); Calcium 9.2 mg/dL (8.5-10.1); Chloride 103 mmol/L (98-107); Estimated GFR 67.76 (mL/min/1.73m2); Glucose 161 mg/dL (74-106); Magnesium 1.7 mg/dL (1.8-2.4); Sodium 141 mmol/L (136-145); TSH 0.29 uIU/mL (0.36-3.74); Total Protein 7.4 g/dL (6.4-8.2)
== END 2022-12-23 03:01 | disposition home or self-care (01) ==
LOC: LBO 03:00
PROVIDERS: PCP Nurse Practitioner; Visit Provider Internal Medicine Medical Oncology
DX: C34.92 Malignant neoplasm of unspecified part of left bronchus or lung (principal); Z79.899 Other long term (current) drug therapy
CPT/HCPCS: 36415; 80053; 83735; 84439; 84443; 85025

== ENCOUNTER 2023-01-13 04:26 | Outpatient (CLI) | payer BC, SELFPAY ==
[2023-01-13 11:16] LABS: Abs Immature Grans 0.06 10^3/uL (0.0-0.06); Absolute Basophil Count 0.02 10^3/uL (0.0-0.2); Absolute Eosinophil Count 0.02 10^3/uL (0.0-0.7); Absolute Neutrophil Count 4.54 10^3/uL (1.2-6.7); Basophils % 0.2; Eosinophils % 0.2; HCT 30.8 % (40.0-50.0); HGB 10.3 g/dL (13.5-17.5); Immature Grans % 0.6; Lymphocytes % 39.4; MCH 31.8 pg (27.0-33.0); MCHC 33.4 % (32.0-36.0); MCV 95 fL (80-95); MPV 8.3 fL (8.0-11.0); Monocytes % 14.8; Neutrophils % 44.8; Platelet Count 363 10^3/uL (130-400); RBC 3.24 10^6/uL (4.36-5.78); RDW 15.9 % (11.8-14.1); RDW-SD 53.6 fL; WBC 10.14 10^3/uL (4.4-10.8)
[2023-01-13 11:38] LABS: ALT 51 U/L (16-63); AST 14 U/L (15-37); Albumin 3.3 g/dL (3.4-5.0); Alkaline Phosphatase 92 U/L (46-116); BUN 16 mg/dL (7-18); Bilirubin, Total 0.2 mg/dL (0.2-1.0); CREATININE 1.4 mg/dL (0.70-1.30); Calcium 9.1 mg/dL (8.5-10.1); Chloride 107 mmol/L (98-107); FREE T4 0.72 ng/dL (0.76-1.46); Glucose 92 mg/dL (74-106); Magnesium 1.7 mg/dL (1.8-2.4); Potassium 4.1 mmol/L (3.5-5.1); Sodium 142 mmol/L (136-145); TSH 0.16 uIU/mL (0.36-3.74); Total Protein 6.9 g/dL (6.4-8.2)
[2023-01-14 18:20] LABS: Adrenocorticotropic Hormone, P <5.0 pg/mL
[2023-01-15 11:10] LABS: Growth Hormone 0.12 ng/mL
== END 2023-01-13 04:27 | disposition home or self-care (01) ==
LOC: LBO 04:26
PROVIDERS: PCP Nurse Practitioner; Visit Provider Internal Medicine Medical Oncology
DX: C34.92 Malignant neoplasm of unspecified part of left bronchus or lung (principal); Z79.899 Other long term (current) drug therapy
CPT/HCPCS: 36415; 80053; 82533; 82024; 83003; 83735; 84439; 84443; 85025

== ENCOUNTER 2023-01-31 00:29 | Outpatient (CLI) | payer BC, SELFPAY ==
[2023-01-31] MEDS: Barium Sulfate 2% W/V-Creamy Vanilla Smoothie 450 ML BTL PO (09:39)
[2023-01-31] MEDS: Barium Sulfate 2% W/V-Berry Smoothie 450 ML BTL PO (09:40)
[2023-01-31] MEDS: Normal Saline - Diluent 50 ML VIAL IJ (11:24)
[2023-01-31] MEDS: Normal Saline Flush 10 ML SYR IJ (11:24)
[2023-01-31] MEDS: Omnipaque 350 MG/ML 500 ML BTL-Imaging package 100 ML IJ (11:25)
--- NOTE | 2023-01-31 11:34 | DI.CT_ITS ---
Exam(s) CT CHEST/ABD/PEL W EXAM: CT CHEST/ABD/PEL W CLINICAL HISTORY: LUNG CANCER C34.92 ASSESS TREATMENT RESPONSE. TECHNIQUE: Imaging Protocol: Axial computed tomography images with coronal and sagittal reformatted images were created and reviewed CONTRAST MATERIAL: Intravenous: Omnipaque 350 Contrast volume:100 ml Oral: Yes. Oral contrast was also administered for bowel opacification. COMPARISON: CT CT CHEST/ABD/PEL W from 12/17/2022 FINDINGS: CHEST: LUNGS: The size of the left upper lobe infiltrate extending from the hilum to the pleural surface of the left upper lobe has somewhat decreased in size, as has the amount of ipsilateral hilar and aortop ulmonic adenopathy. The remaining infiltrate is again noted to extend to the left upper lobe pleural surface. In addition, there is some cavitation in the subpleural aspect of this infiltrate again no fernando but this cavitation has also decreased. There is presently a single cavitation measuring 1.4 by 0.5 by 1.8 cm.. No new findings in the lingular segment of the left lung nor in the left lower lobe and there is no pleural effusion. No new findings in the left mainstem bronchus. The opposite-right lung remains clear. No new nodules nor infiltrates. No pleural effusions on eith er side. MEDIASTINUM: Significant decrease in left hilar and mediastinal adenopathy. Right hilum unremarkable . No adenopathy evident in the anterior mediastinal fat triangle. Partially visualized thyroid appe ars unremarkable. CARDIAC: Heart size is normal. There is no pericardial effusion.Caliber of the thoracic aorta is wit hin normal limits. OSSEOUS: No significant osseous lesions.No fractures evident.. ABDOMEN: There is no ascites. LIVER: There are no focal hepatic lesions nor dilatation of intrahepatic ducts. GALLBLADDER/BILIARY: No obvious gallbladder pathology. CBD is not dilated. PANCREAS: No evidence of pancreatic mass nor dilatation of the pancreatic duct. Previously described hypodensity in the uncinate process of the pancreas most probably represented volume averaging with adjacent air in the duodenum on the prior scan. There are no ominous pancreatic lesions evident on t he present study. Pancreatic duct is not dilated. SPLEEN: Spleen is not enlarged. There are no intrasplenic lesions. Splenic and portal veins are chambers nt. ADRENALS: There are no significant adrenal masses. KIDNEYS: No calculi nor hydronephrosis. No solid renal masses. There is a benign 2 cm cyst in the sup erior pole of the right kidney again noted, unchanged and not requiring further imaging. A smaller s ub cm cyst is noted in the opposite-left kidney. No significant focal renal masses. No hydronephros is. No calculi. ABDOMINAL AORTA: Calcified but not enlarged. Also no iliac artery aneurysms. LYMPH NODES: No mesenteric masses. No gwzckcwyqsvwfdl-hfum-[id number] adenopathy. ABDOMINAL WALL: No evidence of significant anterior abdominal wall nor inguinal hernia. GI: There is no evidence of bowel obstruction. PELVIS: LYMPH NODES: There is no intrapelvic nor inguinal adenopathy. GI: No evidence of appendicitis.No evidence of sigmoid diverticulitis. URINARY BLADDER: No calculi nor masses evident REPRODUCTIVE: Prostate size normal. Seminal vesicles unremarkable. OSSEOUS: No significant osseous lesions. IMPRESSION: 1. Compared to the prior CT scan of 12/17/2022 the left hilar-parahilar mass-infiltrate has decreased in size, as has the amount of left hilar and left-sided mediastinal adenopathy in the aortopulmonic window. The size of the infiltrate has decreased by approximately 50 percent, as described above. N o new lung nodules and no pleural effusions evident. 2. Stable appearance of the abdomen and pelvis with no evidence of abdominal/pelvic metastatic diseas e. 3. The previously described 7 mm hypodensity in the uncinate process of the pancreas is not seen on t he present study. 4. No new lymphadenopathy nor ascites in the abdomen and pelvis and no new mesenteric. Also no signi ficant bone lesions. RADIATION DOSE DELIVERED: 1,411.49mGy.cm Total DLP DATA REPOSITORY: All CT scans at this facility are submitted to the National Radiology Data Registry (NRDR) Dose Index Registry (DIR) with the [employer] (ACR). RADIATION OPTIMIZATION: All CT scans at this facility use at least one of these dose optimization te chniques: automated exposure control; mA and/or kV adjustment per patient size (includes targeted exa ms where dose is matched to clinical indication); or iterative reconstruction.
== END 2023-01-31 00:49 ==
PROVIDERS: PCP Nurse Practitioner; Visit Provider Nurse Practitioner Family
DX: C34.92 Malignant neoplasm of unspecified part of left bronchus or lung (principal)
CPT/HCPCS: 74177; 71260

== ENCOUNTER 2023-02-03 14:27 | Outpatient (CLI) | payer BC, SELFPAY ==
[2023-02-03 08:09] LABS: Abs Immature Grans 0.05 10^3/uL (0.0-0.06); Absolute Basophil Count 0.02 10^3/uL (0.0-0.2); Absolute Eosinophil Count 0.01 10^3/uL (0.0-0.7); Absolute Monocyte Count 0.97 10^3/uL (0.1-0.8); Absolute Neutrophil Count 4.73 10^3/uL (1.2-6.7); Basophils % 0.2; Eosinophils % 0.1; HCT 34.2 % (40.0-50.0); HGB 11.6 g/dL (13.5-17.5); Immature Grans % 0.6; Lymphocytes % 31.8; MCH 32.6 pg (27.0-33.0); MCHC 33.9 % (32.0-36.0); MCV 96 fL (80-95); MPV 8.4 fL (8.0-11.0); Monocytes % 11.4; Neutrophils % 55.9; Platelet Count 295 10^3/uL (130-400); RBC 3.56 10^6/uL (4.36-5.78); RDW 17.2 % (11.8-14.1); RDW-SD 59.7 fL; WBC 8.48 10^3/uL (4.4-10.8)
[2023-02-03 08:34] LABS: ALT 58 U/L (16-63); AST 17 U/L (15-37); Albumin 3.7 g/dL (3.4-5.0); Alkaline Phosphatase 92 U/L (46-116); Anion Gap 10.2 mmol/L (3-11); BUN 23 mg/dL (7-18); Bilirubin, Total 0.2 mg/dL (0.2-1.0); CO2 25.8 mmol/L (21.0-32.0); CREATININE 1.3 mg/dL (0.70-1.30); Chloride 102 mmol/L (98-107); Estimated GFR 67.76 (mL/min/1.73m2); FREE T4 0.88 ng/dL (0.76-1.46); Glucose 130 mg/dL (74-106); Magnesium 1.9 mg/dL (1.8-2.4); Potassium 4.1 mmol/L (3.5-5.1); Sodium 138 mmol/L (136-145); TSH 0.08 uIU/mL (0.36-3.74); Total Protein 7.5 g/dL (6.4-8.2)
== END 2023-02-03 14:28 | disposition home or self-care (01) ==
LOC: LBO 14:32
PROVIDERS: PCP Nurse Practitioner; Visit Provider Internal Medicine Medical Oncology
DX: C34.92 Malignant neoplasm of unspecified part of left bronchus or lung (principal); Z79.899 Other long term (current) drug therapy
CPT/HCPCS: 36415; 80053; 83735; 84439; 84443; 85025

== ENCOUNTER 2023-02-24 02:35 | Outpatient (CLI) | payer BC, SELFPAY ==
[2023-02-24 08:42] LABS: Abs Immature Grans 0.07 10^3/uL (0.0-0.06); Absolute Basophil Count 0.03 10^3/uL (0.0-0.2); Absolute Eosinophil Count 0.02 10^3/uL (0.0-0.7); Absolute Lymphocyte Count 3.29 10^3/uL (1.2-3.4); Absolute Monocyte Count 1.19 10^3/uL (0.1-0.8); Absolute Neutrophil Count 6.93 10^3/uL (1.2-6.7); Basophils % 0.3; Eosinophils % 0.2; HCT 32.7 % (40.0-50.0); HGB 11.2 g/dL (13.5-17.5); Immature Grans % 0.6; Lymphocytes % 28.5; MCH 34.1 pg (27.0-33.0); MCHC 34.3 % (32.0-36.0); MCV 100 fL (80-95); MPV 8.9 fL (8.0-11.0); Monocytes % 10.3; Neutrophils % 60.1; Platelet Count 346 10^3/uL (130-400); RBC 3.28 10^6/uL (4.36-5.78); RDW 16.9 % (11.8-14.1); RDW-SD 61.7 fL; WBC 11.53 10^3/uL (4.4-10.8)
[2023-02-24 09:02] LABS: ALT 47 U/L (16-63); AST 19 U/L (15-37); Albumin 3.5 g/dL (3.4-5.0); Alkaline Phosphatase 70 U/L (46-116); Anion Gap 8.7 mmol/L (3-11); BUN 17 mg/dL (7-18); Bilirubin, Total 0.2 mg/dL (0.2-1.0); CO2 27.3 mmol/L (21.0-32.0); CREATININE 1.3 mg/dL (0.70-1.30); Calcium 9.5 mg/dL (8.5-10.1); Chloride 104 mmol/L (98-107); Estimated GFR 67.76 (mL/min/1.73m2); FREE T4 1.41 ng/dL (0.76-1.46); Glucose 107 mg/dL (74-106); Magnesium 1.5 mg/dL (1.8-2.4); Potassium 4.3 mmol/L (3.5-5.1); Sodium 140 mmol/L (136-145); TSH 0.01 uIU/mL (0.36-3.74); Total Protein 6.9 g/dL (6.4-8.2)
== END 2023-02-24 02:36 | disposition home or self-care (01) ==
LOC: LBO 02:35
PROVIDERS: PCP Nurse Practitioner; Visit Provider Internal Medicine Medical Oncology
DX: C34.92 Malignant neoplasm of unspecified part of left bronchus or lung (principal); Z79.899 Other long term (current) drug therapy
CPT/HCPCS: 36415; 80053; 83735; 84439; 84443; 85025

== ENCOUNTER 2023-02-27 22:38 | Emergency (ER) | payer BC, SELFPAY ==
[2023-02-27 22:48] VITALS: BP 165/94; PULSE 92; RESP 20; TEMP 36.2; O2SAT 98
--- NOTE | 2023-02-27 23:01 | ED.GENADUL_ITS ---
Discharge Plan Disposition Patient Disposition: Home Condition: Stable Discharge Details Clinical Impression: Dental infection Primary Care Provider: Celeste Christiansen ED Provider: Gideon Rouse Home Meds and New Rx's Prescriptions: New penicillin V potassium 500 mg tablet 500 mg PO QID Qty: 36 0RF Continued levothyroxine [Synthroid] 100 mcg tablet 100 mcg PO DAILY hydrocortisone [Cortef] 10 mg tablet 10 mg PO TID Rx Instructions: take 2 tabs in am and 1 tab in pm albuterol sulfate [Proventil HFA] 90 mcg/actuation HFA aerosol inhaler 2 puff IH Q6H PRN (Reason: shortness of breath or wheezing) Qty: 18 12RF acetaminophen 500 mg tablet 1,000 mg PO Q6H PRN ibuprofen 600 mg tablet 600 mg PO Q6H PRN bupropion HCl [Wellbutrin XL] 150 mg tablet extended release 24 hr 150 mg PO QAM Qty: 90 3RF buspirone 10 mg tablet 20 mg PO TID Qty: 180 3RF disulfiram 250 mg tablet 500 mg PO DAILY Qty: 180 3RF lisinopril 10 mg tablet 10 mg PO DAILY Qty: 90 3RF trazodone 50 mg tablet 50 mg PO QHS PRN (Reason: sleep) Qty: 90 3RF dexamethasone 4 mg tablet 4 mg PO BID Rx Instructions: the day before and after chemo as directed Discontinued docusate sodium 100 mg capsule 100 mg PO BID oxycodone 5 mg tablet 5 mg PO Q6H PRN sildenafil 50 mg tablet 50 mg PO DAILY PRN Patient Comments: Not taking Rx Instructions: administer 30 minutes to 4 hours before activity melatonin 1 mg Tablet 2 mg PO .QHS magnesium oxide 400 mg (241.3 mg magnesium) tablet 400 mg Patient Comments: TAKE ONE TABLET BY MOUTH TWICE A DAY. Discharge Instructions Instructions: Penicillin V (By mouth), Oxycodone, Rapid Release (By mouth), Dental Abscess (ED) Additional Instructions: Please take full course of antibiotic as prescribed. Please take ibuprofen over the counter. Take 600mg by mouth every 6 hours as needed for pain. Please dentist to arrange follow-up. Return to the ER immediately for any worsening or new concerning symptoms. 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 Suspect dental infection. No signs of significant abscess. Plan to treat with penicillin and have him follow-up with his dentist. I will provide a few tabs of oxycodone to help with severe pain. Initial dose of antibiotic was provided. Patient understands importance of completing full course of antibiotic and with following up with his dentist. HPI General Mode of arrival: ambulatory . Date/Time Provider Initiated Documentation: 02/27/23 22:39 . Limitations to Documentation: no limitations . Information obtained by: patient . 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 Patient notes dental pain with past 4 days. He has been taking ibuprofen which has not provided relief. Pain worse today. No associated fever. Patient notes chronic dental decay and has had infection in this tooth months ago. Related Data Home Medications Medication Instructions Recorded Confirmed albuterol sulfate 90 mcg/actuation 2 puff inhalation Q6H PRN 05/30/22 02/27/23 aerosol inhaler (Proventil HFA) shortness of breath or wheezing #18 grams acetaminophen 500 mg tablet 1,000 mg PO Q6H PRN 09/30/22 02/27/23 ibuprofen 600 mg tablet 600 mg PO Q6H PRN 09/30/22 02/27/23 bupropion HCl 150 mg 24 hr tablet, 150 mg PO QAM #90 tabs 11/06/22 02/27/23 extended release (Wellbutrin XL) buspirone 10 mg tablet 20 mg PO TID #180 tabs 11/06/22 02/27/23 disulfiram 250 mg tablet 500 mg PO DAILY #180 tabs 11/06/22 02/27/23 lisinopril 10 mg tablet 10 mg PO DAILY #90 tabs 11/06/22 02/27/23 trazodone 50 mg tablet 50 mg PO QHS PRN sleep #90 tabs 11/06/22 02/27/23 dexamethasone 4 mg tablet 4 mg PO BID 12/04/22 02/27/23 hydrocortisone 10 mg tablet 10 mg PO TID 02/18/23 02/27/23 (Cortef) levothyroxine 100 mcg tablet 100 mcg PO DAILY 02/18/23 02/27/23 (Synthroid) penicillin V potassium 500 mg 500 mg PO QID #36 tabs 02/27/23 tablet Previous Rx's Medication Instructions Recorded albuterol sulfate 90 mcg/actuation 2 puff inhalation Q6H PRN 05/30/22 aerosol inhaler (Proventil HFA) shortness of breath or wheezing #18 grams bupropion HCl 150 mg 24 hr tablet, 150 mg PO QAM #90 tabs 11/06/22 extended release (Wellbutrin XL) buspirone 10 mg tablet 20 mg PO TID #180 tabs 11/06/22 disulfiram 250 mg tablet 500 mg PO DAILY #180 tabs 11/06/22 lisinopril 10 mg tablet 10 mg PO DAILY #90 tabs 11/06/22 trazodone 50 mg tablet 50 mg PO QHS PRN sleep #90 tabs 11/06/22 penicillin V potassium 500 mg 500 mg PO QID #36 tabs 02/27/23 tablet Allergies Allergy/AdvReac Type Severity Reaction Status Date / Time sugammadex Allergy Severe welts on Verified 02/18/23 11:49 neck shoulders General Stated Complaint: DentalOral TANG: 4 Review of Systems Constitutional Constitutional: Denies fever(s) ENT Ears, Nose, Mouth, and Throat: Reports as per HPI PFSH All Active Problems Dental infection (Acute) Erectile dysfunction (Acute) 12/02/22 [facility] [place] [facility] [place] Depression (Chronic) 12/02/22 [facility] [place] [place] [facility] [place] Secondary and unspecified malignant neoplasm of intra-abdominal lymph nodes (Acute) 10/22/22 Hem/Onc Adenocarcinoma of left lung, stage 4 (Acute) 10/22/22 Hem/Onc 11/08/22 Hem/Onc, pt enrolled in clinical trial 01/13/23 continues on trial Left upper lobe pulmonary nodule (Acute) 09/20/22 Thoracic Surgery Lymphadenopathy (Acute ~08/2022) 09/20/22 Dr Sanchez at [facility] Hyperplastic colon polyp (Acute) GI bleed (Chronic) Acute anemia (Acute) Alcohol withdrawal (Acute) Cubital tunnel syndrome (Acute) Substance abuse (Acute 05/15/17) Medical History Abnormal blood creatinine level (~10/2022) Alcohol dependence Alcohol use disorder Asthma Attention deficit disorder (05/15/17) Attention deficit disorder (ADD) in adult Essential hypertension (05/15/17) Family history of breast cancer (06/04/17) Mother MICHELLE (generalized anxiety disorder) (05/15/17) Laceration Tobacco use disorder, continuous (06/17/17) Surgical History History of bronchoscopy (~09/26/22) Thoracic Surg History of colonoscopy (~12/2021) 10/11/22[place] [place] [facility] [place]. Family History Mother Depression Neoplasm Breast Father Alcohol abuse Essential hypertension Heart disease Brother Alcohol abuse Social History Smoking/Tobacco Use Status: Current every day Tobacco Type: cigarettes, e- cigarettes and smokeless tobacco Tobacco: How many years used: 30 Smokeless tobacco user: chewing tobacco Quit status: considering quitting Smoking risk assessment performed?: Yes Alcohol Intake: former Year quit: 2019 Drug use: Occasionally Substance use type: marijuana Household members: significant other Housing: apartment Number of Children: 1 Communication Needs: None current occupation: [employer] Pets and animals: Yes Sexually active: Yes Do you think of yourself as: straight/heterosexual Current gender identity: male What is your relationship status?: living with partner Panel score (0-1 are the most socially isolated patients): 1 What type of physical activity do you participate in: other Details: Work Frequency: 5-6 times per week Seatbelt use: always Helmet use: Yes Helmet use: always 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 Working smoke detector in home: Yes Fire extinguisher in home: Yes Carbon monox detector in home: Yes Do you feel safe at home: Yes Do you feel safe in your relationship?: Yes Exam Const General: cooperative and no acute distress [facility] General nose exam: external nose normal Face and sinus: face symmetric Mouth: moist mucous membranes Teeth and gingiva: poor dentition and other (Tooth #19 with significant decay, no periapical swelling or fluctuance) Throat: posterior oropharynx normal Other: No stridor, no trismus Eyes Conjunctivae: normal conjunctivae Sclera: normal sclerae Neck Neck: no lymphadenopathy and supple Course Vital Signs Vital signs: Vital Signs Temperature 36.2 C L 02/27/23 22:48 Pulse 92 H 02/27/23 22:48 Respiratory Rate 20 02/27/23 22:48 Blood Pressure 165/94 H 02/27/23 22:48 Pulse Oximetry 98 02/27/23 22:48 Temperature 36.2 C L 02/27/23 22:48 Temperature Source Tympanic 02/27/23 22:48 Pulse 92 H 02/27/23 22:48 Respiratory Rate 20 02/27/23 22:48 Blood Pressure 165/94 H 02/27/23 22:48 Pulse Oximetry 98 02/27/23 22:48 Oxygen Delivery Method Room Air 02/27/23 22:48 Oxygen Flow Rate 0 02/27/23 22:48
[2023-02-27] MEDS: Penicillin V POTASSIUM 500 MG TAB, 4 TABS/BTL PO (23:24)
== END 2023-02-27 23:32 | disposition home or self-care (01) ==
PROVIDERS: Emergency Provider Student in an Organized Health Care Education/Training Program; PCP Nurse Practitioner
DX: K08.89 Other specified disorders of teeth and supporting structures (principal)
CPT/HCPCS: 99283; 99284

== ENCOUNTER 2023-02-28 19:34 | Emergency (ER) | payer BC, SELFPAY ==
[2023-02-28 19:37] VITALS: BP 152/96; PULSE 120; RESP 16; TEMP 36.4; O2SAT 97
--- NOTE | 2023-02-28 20:08 | ED.GENADUL_ITS ---
Discharge Plan Disposition Patient Disposition: Home Condition: Good Discharge Details Clinical Impression: Pain, dental Primary Care Provider: Celeste Christiansen ED Provider: Nnamdi Andujar Home Meds and New Rx's Prescriptions: No Action levothyroxine [Synthroid] 100 mcg tablet 100 mcg PO DAILY hydrocortisone [Cortef] 10 mg tablet 10 mg PO TID Rx Instructions: take 2 tabs in am and 1 tab in pm albuterol sulfate [Proventil HFA] 90 mcg/actuation HFA aerosol inhaler 2 puff IH Q6H PRN (Reason: shortness of breath or wheezing) Qty: 18 12RF acetaminophen 500 mg tablet 1,000 mg PO Q6H PRN ibuprofen 600 mg tablet 600 mg PO Q6H PRN bupropion HCl [Wellbutrin XL] 150 mg tablet extended release 24 hr 150 mg PO QAM Qty: 90 3RF buspirone 10 mg tablet 20 mg PO TID Qty: 180 3RF disulfiram 250 mg tablet 500 mg PO DAILY Qty: 180 3RF lisinopril 10 mg tablet 10 mg PO DAILY Qty: 90 3RF trazodone 50 mg tablet 50 mg PO QHS PRN (Reason: sleep) Qty: 90 3RF dexamethasone 4 mg tablet 4 mg PO BID Rx Instructions: the day before and after chemo as directed penicillin V potassium 500 mg tablet 500 mg PO QID Qty: 36 0RF Discharge Instructions Instructions: Toothache (ED) Additional Instructions: The block we administered should help improve your pain. Please take 800 mg of ibuprofen every 6 hours and 1000 mg of Tylenol every 6 hours to help with the inflammation and pain. These are the maximum doses. Please take the antibiotic as directed to help with the infection in your tooth. Please use the dental list that we have provided to contact the dentist for prompt follow-up and evaluation for tooth removal. If you notice any worsening of your symptoms, or any new symptoms such as difficulty swallowing, difficulty breathing, vomiting, diarrhea, fever, chills, shortness of breath, chest pain, numbness, weakness, or fainting , please return immediately to the emergency department for reevaluation. Please follow up with your primary care provider as soon as possible for reassessment and reevaluation. As always, it was a pleasure participating in your medical care today. Referrals: Kuldip,Celeste, [employer] [Primary Care Provider] - Medical Decision Making 47-year-old male with a past medical history of dental pain who was just seen last night for dental caries and pain. He was offered a dental block last night but he did not excepted at that time. He was started on antibiotics. Unfortunately in spite of the Tylenol, Motrin and [place] tablets he was given he still has persistent severe pain. He presents today looking for additional pain control. He denies fever or chills. He is taking the antibiotics as directed. No other complaints at this time. Exam demonstrates poor dentition, no signs of Ludewig's angina, periapical abscess or other abnormality. Patient has elected for dental block. Dental block was performed, patient had improvement of his symptoms. He will be discharged with dental sheet. Discussed red flags for which to return. Recommend continue taking the antibiotic. I have extensively reviewed the treatment plan and discharge instructions with the patient. I have addressed all patient concerns at this time. The patient was made aware of what symptoms to monitor for that would warrant a return to the emergency department. Discussed the plan with the patient, they demonstrate verbal understanding and agreement with our assessment and plan at this time. The documentation in this chart was dictated using [employer] dictation software. Please excuse any dictation errors. HPI General Date/Time Provider Initiated Documentation: 02/28/23 19:57 . HPI Narrative: 47-year-old male with a past medical history of dental pain who was just seen last night for dental caries and pain. He was offered a dental block last night but he did not excepted at that time. He was started on antibiotics. Unfortunately in spite of the Tylenol, Motrin and [place] tablets he was given he still has persistent severe pain. He presents today looking for additional pain control. He denies fever or chills. He is taking the antibiotics as directed. No other complaints at this time. Related Data Home Medications Medication Instructions Recorded Confirmed albuterol sulfate 90 mcg/actuation 2 puff inhalation Q6H PRN 05/30/22 02/27/23 aerosol inhaler (Proventil HFA) shortness of breath or wheezing #18 grams acetaminophen 500 mg tablet 1,000 mg PO Q6H PRN 09/30/22 02/27/23 ibuprofen 600 mg tablet 600 mg PO Q6H PRN 09/30/22 02/27/23 bupropion HCl 150 mg 24 hr tablet, 150 mg PO QAM #90 tabs 11/06/22 02/27/23 extended release (Wellbutrin XL) buspirone 10 mg tablet 20 mg PO TID #180 tabs 11/06/22 02/27/23 disulfiram 250 mg tablet 500 mg PO DAILY #180 tabs 11/06/22 02/27/23 lisinopril 10 mg tablet 10 mg PO DAILY #90 tabs 11/06/22 02/27/23 trazodone 50 mg tablet 50 mg PO QHS PRN sleep #90 tabs 11/06/22 02/27/23 dexamethasone 4 mg tablet 4 mg PO BID 12/04/22 02/27/23 hydrocortisone 10 mg tablet 10 mg PO TID 02/18/23 02/27/23 (Cortef) levothyroxine 100 mcg tablet 100 mcg PO DAILY 02/18/23 02/27/23 (Synthroid) penicillin V potassium 500 mg 500 mg PO QID #36 tabs 02/27/23 tablet Previous Rx's Medication Instructions Recorded albuterol sulfate 90 mcg/actuation 2 puff inhalation Q6H PRN 05/30/22 aerosol inhaler (Proventil HFA) shortness of breath or wheezing #18 grams bupropion HCl 150 mg 24 hr tablet, 150 mg PO QAM #90 tabs 11/06/22 extended release (Wellbutrin XL) buspirone 10 mg tablet 20 mg PO TID #180 tabs 11/06/22 disulfiram 250 mg tablet 500 mg PO DAILY #180 tabs 11/06/22 lisinopril 10 mg tablet 10 mg PO DAILY #90 tabs 11/06/22 trazodone 50 mg tablet 50 mg PO QHS PRN sleep #90 tabs 11/06/22 penicillin V potassium 500 mg 500 mg PO QID #36 tabs 02/27/23 tablet Allergies Allergy/AdvReac Type Severity Reaction Status Date / Time sugammadex Allergy Severe welts on Verified 02/28/23 19:43 neck shoulders General Stated Complaint: DentalOral TANG: 5 Review of Systems All systems reviewed & are unremarkable except as noted in HPI and below PFSH All Active Problems Dental infection (Acute) Pain, dental (Acute) Erectile dysfunction (Acute) [place] [facility] [place] Depression (Chronic) [place]/02/[place] [facility] [place] Secondary and unspecified malignant neoplasm of intra-abdominal lymph nodes (Acute) 10/22/22 Hem/Onc Adenocarcinoma of left lung, stage 4 (Acute) 10/22/22 Hem/Onc 11/08/22 Hem/Onc, pt enrolled in clinical trial 01/13/23 continues on trial Left upper lobe pulmonary nodule (Acute) 09/20/22 Thoracic Surgery Lymphadenopathy (Acute ~08/2022) 09/20/22 Dr Sanchez at [facility] Hyperplastic colon polyp (Acute) GI bleed (Chronic) Acute anemia (Acute) Alcohol withdrawal (Acute) Cubital tunnel syndrome (Acute) Substance abuse (Acute 05/15/17) Medical History Abnormal blood creatinine level (~10/2022) Alcohol dependence Alcohol use disorder Asthma Attention deficit disorder (05/15/17) Attention deficit disorder (ADD) in adult Essential hypertension (05/15/17) Family history of breast cancer (06/04/17) Mother MICHELLE (generalized anxiety disorder) (05/15/17) Laceration Tobacco use disorder, continuous (06/17/17) Surgical History History of bronchoscopy (~09/26/22) Thoracic Surg History of colonoscopy ([place]12/2021) [place] [place] Family History Mother Depression Neoplasm Breast Father Alcohol abuse Essential hypertension Heart disease Brother Alcohol abuse Social History Smoking/Tobacco Use Status: Current every day Tobacco Type: cigarettes, e- cigarettes and smokeless tobacco Tobacco: How many years used: 30 Smokeless tobacco user: chewing tobacco Quit status: considering quitting Smoking risk assessment performed?: Yes Alcohol Intake: former Year quit: 2019 Drug use: Occasionally Substance use type: marijuana Household members: significant other Housing: apartment Number of Children: 1 Communication Needs: None current occupation: [employer] Pets and animals: Yes Sexually active: Yes Do you think of yourself as: straight/heterosexual Current gender identity: male What is your relationship status?: living with partner Panel score (0-1 are the most socially isolated patients): 1 What type of physical activity do you participate in: other Details: Work Frequency: 5-6 times per week Seatbelt use: always Helmet use: Yes Helmet use: always 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 3.ENT: Atraumatic external nose and ears. Moist MM. Neck: Symmetric, trachea midline, No thyromegaly. Notable dental caries throughout 4.CVS: +S1/S2, No murmurs or gallops. Peripheral pulses 2+ and equal in all extremities. Brisk capillary refill in all extremities. 5.RESP: Unlabored respiratory effort. Clear to auscultation bilaterally. No wheezes rales or rhonchi 6.GI: Soft, Nontender/Nondistended, No hepatosplenomegaly. No guarding or rebound. 7.MSK: Normocephalic/Atraumatic, Extremities w/o deformity or ttp No cyanosis or clubbing, Normal movement of all extremities 8.Skin: Warm, Dry. No rashes or lesions. 9.Neuro: yoga teacher II-XII grossly intact. Sensation grossly intact, no focal neurologic deficits. 10.Psych: (AAO) x3. Appropriate mood and affect Course Vital Signs Vital signs: Vital Signs Temperature 36.4 C 02/28/23 19:37 Pulse 120 H 02/28/23 19:37 Respiratory Rate 16 02/28/23 19:37 Blood Pressure 152/96 H 02/28/23 19:37 Pulse Oximetry 97 02/28/23 19:37 Temperature 36.4 C 02/28/23 19:37 Temperature Source Oral 02/28/23 19:37 Pulse 120 H 02/28/23 19:37 Respiratory Rate 16 02/28/23 19:37 Respiratory Effort Normal 02/28/23 19:41 Blood Pressure 152/96 H 02/28/23 19:37 Blood Pressure Position Sitting 02/28/23 19:37 Pulse Oximetry 97 02/28/23 19:37 Oxygen Delivery Method Room Air 02/28/23 19:37 Oxygen Flow Rate 0 02/28/23 19:37 Pain Level 7 02/28/23 19:37 Procedures Nerve Block Nerve Block 1: Time out performed: Yes Local Anesthetic: Bupivicaine 0.5% Amount of anesthesia used (mL): 6 Side: left and right Intraoral Nerve Block: inferior alveolar Procedure Successful: Yes Patient Tolerated Procedure: well and no complications Complications: none
== END 2023-02-28 20:12 | disposition home or self-care (01) ==
LOC: ER 20:09
PROVIDERS: Emergency Provider Student in an Organized Health Care Education/Training Program; PCP Nurse Practitioner
DX: R68.84 Jaw pain (principal)
CPT/HCPCS: 64400

== ENCOUNTER 2023-03-17 04:33 | Outpatient (CLI) | payer BC, SELFPAY ==
[2023-03-17 08:19] LABS: Abs Immature Grans 0.07 10^3/uL (0.0-0.06); Absolute Basophil Count 0.04 10^3/uL (0.0-0.2); Absolute Lymphocyte Count 3.94 10^3/uL (1.2-3.4); Absolute Monocyte Count 1.19 10^3/uL (0.1-0.8); Basophils % 0.3; Eosinophils % 0.2; HCT 35.5 % (40.0-50.0); HGB 12.2 g/dL (13.5-17.5); Immature Grans % 0.6; Lymphocytes % 32.2; MCH 34.4 pg (27.0-33.0); MCHC 34.4 % (32.0-36.0); MCV 100 fL (80-95); MPV 8.6 fL (8.0-11.0); Monocytes % 9.7; Platelet Count 381 10^3/uL (130-400); RBC 3.55 10^6/uL (4.36-5.78); RDW 13.4 % (11.8-14.1); RDW-SD 49.2 fL; WBC 12.23 10^3/uL (4.4-10.8)
[2023-03-17 08:21] LABS: Absolute Eosinophil Count 0.02 10^3/uL (0.0-0.7); Absolute Neutrophil Count 6.97 10^3/uL (1.2-6.7)
[2023-03-17 08:52] LABS: ALT 45 U/L (16-63); AST 24 U/L (15-37); Albumin 3.5 g/dL (3.4-5.0); Alkaline Phosphatase 73 U/L (46-116); Anion Gap 10.2 mmol/L (3-11); BUN 16 mg/dL (7-18); Bilirubin, Total 0.2 mg/dL (0.2-1.0); CO2 26.8 mmol/L (21.0-32.0); CREATININE 1.4 mg/dL (0.70-1.30); Chloride 104 mmol/L (98-107); FREE T4 0.94 ng/dL (0.76-1.46); Glucose 131 mg/dL (74-106); Magnesium 1.7 mg/dL (1.8-2.4); Potassium 3.7 mmol/L (3.5-5.1); Sodium 141 mmol/L (136-145); TSH 0.01 uIU/mL (0.36-3.74); Total Protein 7.6 g/dL (6.4-8.2)
== END 2023-03-17 04:34 | disposition home or self-care (01) ==
LOC: LBO 04:33
PROVIDERS: PCP Nurse Practitioner; Visit Provider Internal Medicine Medical Oncology
DX: C34.92 Malignant neoplasm of unspecified part of left bronchus or lung (principal); Z79.899 Other long term (current) drug therapy
CPT/HCPCS: 36415; 80053; 83735; 84439; 84443; 85025

== ENCOUNTER → 2023-03-28 00:32 | Outpatient (CLI) | payer BC, SELFPAY ==
--- NOTE | 2023-03-28 | DI.CT_ITS ---
Exam(s) CT CHEST/ABD/PEL W EXAM: CT CHEST/ABD/PEL W CLINICAL HISTORY: STAGE 4 LUNG CA, C34.92, ASSESS TREATMENT RESPONSE TECHNIQUE: Imaging Protocol: Axial computed tomography images with coronal and sagittal reformatted images were created and reviewed CONTRAST MATERIAL: Intravenous: Omnipaque 350 contrast volume:100 mL Oral: Yes COMPARISON: CT CT CHEST/ABD/PEL W from 12/17/[address] CHEST/ABD/PEL W from 01/31/2023 FINDINGS: CHEST: Tracheobronchial tree: Patent where visualized. Pulmonary parenchyma: There are now diffuse ground-glass opacities in the lungs. There has been cont inued decrease in the soft tissue mass in the left hilum extending into the left upper lobe periphery . There is also been decrease in size of the cavitary lesion peripherally in the left upper lobe. T his now measures 1.6 x 0.9 cm. There is been a decrease in the mediastinal adenopathy. Visualized thyroid gland: Unremarkable. Mediastinum and Bryanna: Please see the above section. The esophagus is unremarkable. Pleura: No effusion or pneumothorax. Heart: The heart is not dilated. Three vessel coronary artery calcification is present. No pericardi al effusion. Pulmonary arteries: There is limited opacification of some segmental and subsegmental pulmonary arter ies. No large central pulmonary embolus is identified. Aorta: Thoracic aorta non-dilated. Atherosclerosis. No evidence of dissection. Lymph nodes: Within normal limits. No significant axillary or supraclavicular adenopathy. Soft tissues: Unremarkable. Bones:Within normal limits for the patient's age. No aggressive osseous lesions are seen. ABDOMEN: Liver: Normal density. No measurable mass. Portal, Superior Mesenteric, and Splenic Veins: Unremarkable. Gallbladder and Biliary Tract: No radiodense calculus or dilation. Pancreas: Normal density, no abnormal calcifications or inflammatory process. Spleen: Normal. Adrenals: No masses seen. Kidneys: Normal size, contour and axis. No radiodense stones or obstructive uropathy. There are tiny hypodensities seen in the kidneys bilaterally. They are too small for further characterization but l ikely reflect small cysts. There is a 2.2 cm simple cyst in the superior pole of the right kidney. No follow-up is recommended. Abdominal Aorta: Abdominal portion non-dilated. Atherosclerosis. Bowel: No obstruction or bowel wall thickening. Appendix is unremarkable. There is a large amount of stool throughout the colon which may represent constipation. Peritoneal Cavity: No ascites, collection or mesenteric inflammatory response. No free air. Lymph Nodes: Within normal limits. Bones: Within normal limits for the patient's age. No aggressive osseous lesions are present. Soft Tissues: Unremarkable. PELVIS: Bladder: Symmetric distention, no gross wall thickening. Reproductive Organs: Unremarkable as visualized. Lymph Nodes: Within normal limits. Bones: Within normal limits. IMPRESSION: 1. Continued decrease in size of the left upper lobe carcinoma since 01/31/2023. 2. Bilateral ground-glass opacities in the lungs. These are nonspecific. Differential consideration s include infectious or inflammatory process. Pneumonitis or neoplasm should also be considered. Pl ease correlate clinically. 3. No evidence of abdominal or pelvic metastatic disease. RADIATION DOSE DELIVERED: 1,410.99mGy.cm Total DLP DATA REPOSITORY: All CT scans at this facility are submitted to the National Radiology Data Registry (NRDR) Dose Index Registry (DIR) with the [employer] (A[employer]). RADIATION OPTIMIZATION: All CT scans at this facility use at least one of these dose optimization te chniques: automated exposure control; mA and/or kV adjustment per patient size (includes targeted exa ms where dose is matched to clinical indication); or iterative reconstruction.
[2023-03-28] MEDS: Barium Sulfate 2% W/V-Berry Smoothie 450 ML BTL PO ×2 (07:21)
[2023-03-28] MEDS: Normal Saline - Diluent 50 ML VIAL IJ (10:32)
[2023-03-28] MEDS: Normal Saline Flush 10 ML SYR IVP (10:33)
[2023-03-28] MEDS: Omnipaque 350 MG/ML 500 ML BTL-Imaging package 100 ML IJ (10:33)
== END ==
PROVIDERS: PCP Nurse Practitioner; Visit Provider Internal Medicine Medical Oncology
DX: C34.92 Malignant neoplasm of unspecified part of left bronchus or lung (principal)
CPT/HCPCS: 74177; 71260

== ENCOUNTER 2023-04-07 04:48 | Outpatient (CLI) | payer BC, SELFPAY ==
[2023-04-07 08:11] LABS: Abs Immature Grans 0.08 10^3/uL (0.0-0.06); Absolute Basophil Count 0.07 10^3/uL (0.0-0.2); Absolute Eosinophil Count 0.05 10^3/uL (0.0-0.7); Absolute Lymphocyte Count 1.56 10^3/uL (1.2-3.4); Absolute Monocyte Count 0.98 10^3/uL (0.1-0.8); Absolute Neutrophil Count 10.93 10^3/uL (1.2-6.7); Basophils % 0.5; Eosinophils % 0.4; HCT 33.5 % (40.0-50.0); HGB 11.4 g/dL (13.5-17.5); Immature Grans % 0.6; Lymphocytes % 11.4; MCH 33.7 pg (27.0-33.0); MCV 99 fL (80-95); MPV 8.8 fL (8.0-11.0); Monocytes % 7.2; Neutrophils % 79.9; Platelet Count 417 10^3/uL (130-400); RBC 3.38 10^6/uL (4.36-5.78); RDW-SD 43.9 fL; WBC 13.68 10^3/uL (4.4-10.8)
[2023-04-07 08:36] LABS: ALT 29 U/L (16-63); AST 21 U/L (15-37); Alkaline Phosphatase 86 U/L (46-116); Anion Gap 9.8 mmol/L (3-11); BUN 19 mg/dL (7-18); Bilirubin, Total 0.2 mg/dL (0.2-1.0); CO2 25.2 mmol/L (21.0-32.0); CREATININE 1.6 mg/dL (0.70-1.30); Calcium 9.8 mg/dL (8.5-10.1); Chloride 100 mmol/L (98-107); Estimated GFR 52.82 (mL/min/1.73m2); FREE T4 1.43 ng/dL (0.76-1.46); Glucose 125 mg/dL (74-106); Magnesium 1.6 mg/dL (1.8-2.4); Potassium 4.4 mmol/L (3.5-5.1); Sodium 135 mmol/L (136-145); TSH 0.01 uIU/mL (0.36-3.74); Total Protein 7.9 g/dL (6.4-8.2)
== END 2023-04-07 04:49 | disposition home or self-care (01) ==
LOC: LBO 04:48
PROVIDERS: PCP Nurse Practitioner; Visit Provider Internal Medicine Medical Oncology
DX: C34.92 Malignant neoplasm of unspecified part of left bronchus or lung (principal); Z79.899 Other long term (current) drug therapy
CPT/HCPCS: 36415; 80053; 83735; 84439; 84443; 85025

== ENCOUNTER 2023-04-28 03:16 | Outpatient (CLI) | payer BC, SELFPAY ==
[2023-04-28 08:26] LABS: Abs Immature Grans 0.06 10^3/uL (0.0-0.06); Absolute Basophil Count 0.09 10^3/uL (0.0-0.2); Absolute Lymphocyte Count 1.84 10^3/uL (1.2-3.4); Absolute Monocyte Count 0.68 10^3/uL (0.1-0.8); Absolute Neutrophil Count 6.71 10^3/uL (1.2-6.7); Basophils % 0.9; Eosinophils % 1.1; HCT 35.2 % (40.0-50.0); HGB 11.7 g/dL (13.5-17.5); Immature Grans % 0.6; Lymphocytes % 19.4; MCH 32.6 pg (27.0-33.0); MCHC 33.2 % (32.0-36.0); MCV 98 fL (80-95); MPV 8.7 fL (8.0-11.0); Monocytes % 7.2; Neutrophils % 70.8; Platelet Count 395 10^3/uL (130-400); RBC 3.59 10^6/uL (4.36-5.78); RDW 12.7 % (11.8-14.1); RDW-SD 45.6 fL; WBC 9.48 10^3/uL (4.4-10.8)
[2023-04-28 08:48] LABS: ALT 58 U/L (16-63); AST 27 U/L (15-37); Albumin 3.3 g/dL (3.4-5.0); Alkaline Phosphatase 92 U/L (46-116); Anion Gap 9.5 mmol/L (3-11); BUN 15 mg/dL (7-18); Bilirubin, Total 0.1 mg/dL (0.2-1.0); CO2 27.5 mmol/L (21.0-32.0); CREATININE 1.4 mg/dL (0.70-1.30); Calcium 9.9 mg/dL (8.5-10.1); Chloride 103 mmol/L (98-107); Glucose 106 mg/dL (74-106); Magnesium 1.7 mg/dL (1.8-2.4); Sodium 140 mmol/L (136-145); Total Protein 7.8 g/dL (6.4-8.2)
[2023-04-28 08:49] LABS: TSH < 0.01 uIU/mL (0.36-3.74)
[2023-05-03 14:48] LABS: Testosterone, Total 513 ng/dL (240-950)
== END 2023-04-28 03:17 | disposition home or self-care (01) ==
PROVIDERS: PCP Nurse Practitioner; Visit Provider Internal Medicine Medical Oncology
DX: C34.92 Malignant neoplasm of unspecified part of left bronchus or lung (principal); E23.7 Disorder of pituitary gland, unspecified; Z79.899 Other long term (current) drug therapy
CPT/HCPCS: 36415; 80053; 84403; 83735; 84439; 84443; 85025

== ENCOUNTER 2023-05-19 04:28 | Outpatient (CLI) | payer BC, SELFPAY ==
[2023-05-19 08:01] LABS: Abs Immature Grans 0.05 10^3/uL (0.0-0.06); Absolute Basophil Count 0.09 10^3/uL (0.0-0.2); Absolute Eosinophil Count 0.05 10^3/uL (0.0-0.7); Absolute Lymphocyte Count 2.27 10^3/uL (1.2-3.4); Absolute Monocyte Count 0.66 10^3/uL (0.1-0.8); Absolute Neutrophil Count 5.64 10^3/uL (1.2-6.7); Eosinophils % 0.6; HCT 36.5 % (40.0-50.0); Immature Grans % 0.6; Lymphocytes % 25.9; MCH 32.8 pg (27.0-33.0); MCHC 32.9 % (32.0-36.0); MCV 100 fL (80-95); MPV 8.5 fL (8.0-11.0); Monocytes % 7.5; Neutrophils % 64.4; Platelet Count 385 10^3/uL (130-400); RBC 3.66 10^6/uL (4.36-5.78); RDW 13.5 % (11.8-14.1); RDW-SD 49.7 fL; WBC 8.76 10^3/uL (4.4-10.8)
[2023-05-19 08:27] LABS: ALT 60 U/L (16-63); AST 25 U/L (15-37); Albumin 3.5 g/dL (3.4-5.0); Alkaline Phosphatase 91 U/L (46-116); Anion Gap 3.5 mmol/L (3-11); BUN 17 mg/dL (7-18); Bilirubin, Total 0.2 mg/dL (0.2-1.0); CO2 30.5 mmol/L (21.0-32.0); CREATININE 1.4 mg/dL (0.70-1.30); Chloride 105 mmol/L (98-107); FREE T4 1.19 ng/dL (0.76-1.46); Glucose 102 mg/dL (74-106); Potassium 4.8 mmol/L (3.5-5.1); Sodium 139 mmol/L (136-145); TSH 0.01 uIU/mL (0.36-3.74); Total Protein 7.5 g/dL (6.4-8.2)
== END 2023-05-19 04:29 | disposition home or self-care (01) ==
LOC: LBO 04:28
PROVIDERS: PCP Nurse Practitioner; Visit Provider Internal Medicine Medical Oncology
DX: C34.92 Malignant neoplasm of unspecified part of left bronchus or lung (principal); Z79.899 Other long term (current) drug therapy
CPT/HCPCS: 36415; 80053; 83735; 84439; 84443; 85025

== ENCOUNTER 2023-06-09 04:45 | Outpatient (CLI) | payer BC, SELFPAY ==
[2023-06-09 07:56] LABS: Abs Immature Grans 0.05 10^3/uL (0.0-0.06); Absolute Basophil Count 0.12 10^3/uL (0.0-0.2); Absolute Eosinophil Count 0.16 10^3/uL (0.0-0.7); Absolute Lymphocyte Count 2.82 10^3/uL (1.2-3.4); Absolute Neutrophil Count 6.46 10^3/uL (1.2-6.7); Basophils % 1.2; Eosinophils % 1.5; HCT 37.7 % (40.0-50.0); HGB 12.4 g/dL (13.5-17.5); Immature Grans % 0.5; Lymphocytes % 27.1; MCHC 32.9 % (32.0-36.0); MCV 100 fL (80-95); MPV 8.5 fL (8.0-11.0); Monocytes % 7.7; Platelet Count 353 10^3/uL (130-400); RBC 3.76 10^6/uL (4.36-5.78); RDW 14.5 % (11.8-14.1); WBC 10.41 10^3/uL (4.4-10.8)
[2023-06-09 08:27] LABS: ALT 77 U/L (16-63); AST 24 U/L (15-37); Albumin 3.5 g/dL (3.4-5.0); Alkaline Phosphatase 81 U/L (46-116); Anion Gap 7.1 mmol/L (3-11); BUN 20 mg/dL (7-18); Bilirubin, Total 0.2 mg/dL (0.2-1.0); CO2 29.9 mmol/L (21.0-32.0); CREATININE 1.5 mg/dL (0.70-1.30); Calcium 9.4 mg/dL (8.5-10.1); Chloride 104 mmol/L (98-107); Estimated GFR 57.07 (mL/min/1.73m2); FREE T4 0.89 ng/dL (0.76-1.46); Glucose 99 mg/dL (74-106); Magnesium 2.1 mg/dL (1.8-2.4); Potassium 4.8 mmol/L (3.5-5.1); Sodium 141 mmol/L (136-145); TSH 0.06 uIU/mL (0.36-3.74); Total Protein 7.3 g/dL (6.4-8.2)
== END 2023-06-09 04:46 | disposition home or self-care (01) ==
LOC: LBO 04:46
PROVIDERS: PCP Nurse Practitioner; Visit Provider Internal Medicine Medical Oncology
DX: C34.92 Malignant neoplasm of unspecified part of left bronchus or lung (principal); Z79.899 Other long term (current) drug therapy
CPT/HCPCS: 36415; 80053; 83735; 84439; 84443; 85025

== ENCOUNTER 2023-07-02 04:16 | Outpatient (CLI) | payer BC, SELFPAY ==
[2023-07-02 12:58] LABS: Abs Immature Grans 0.03 10^3/uL (0.0-0.06); Absolute Basophil Count 0.11 10^3/uL (0.0-0.2); Absolute Eosinophil Count 0.11 10^3/uL (0.0-0.7); Absolute Lymphocyte Count 3.57 10^3/uL (1.2-3.4); Absolute Monocyte Count 0.85 10^3/uL (0.1-0.8); Absolute Neutrophil Count 5.89 10^3/uL (1.2-6.7); HCT 36.7 % (40.0-50.0); HGB 12.3 g/dL (13.5-17.5); Immature Grans % 0.3; Lymphocytes % 33.8; MCH 33.1 pg (27.0-33.0); MCHC 33.5 % (32.0-36.0); MCV 99 fL (80-95); Neutrophils % 55.9; Platelet Count 308 10^3/uL (130-400); RBC 3.72 10^6/uL (4.36-5.78); RDW 14.5 % (11.8-14.1); RDW-SD 52.9 fL; WBC 10.56 10^3/uL (4.4-10.8)
[2023-07-02 13:25] LABS: ALT 50 U/L (16-63); AST 27 U/L (15-37); Albumin 3.8 g/dL (3.4-5.0); Alkaline Phosphatase 75 U/L (46-116); Anion Gap 8.7 mmol/L (3-11); BUN 21 mg/dL (7-18); Bilirubin, Total 0.4 mg/dL (0.2-1.0); CO2 27.3 mmol/L (21.0-32.0); CREATININE 1.6 mg/dL (0.70-1.30); Calcium 9.2 mg/dL (8.5-10.1); Chloride 101 mmol/L (98-107); Estimated GFR 52.82 (mL/min/1.73m2); FREE T4 1.14 ng/dL (0.76-1.46); Glucose 91 mg/dL (74-106); Potassium 4.3 mmol/L (3.5-5.1); Sodium 137 mmol/L (136-145); TSH 0.33 uIU/mL (0.36-3.74); Total Protein 7.5 g/dL (6.4-8.2)
== END 2023-07-02 04:17 | disposition home or self-care (01) ==
PROVIDERS: PCP Nurse Practitioner; Visit Provider Internal Medicine Medical Oncology
DX: C34.92 Malignant neoplasm of unspecified part of left bronchus or lung (principal); Z79.899 Other long term (current) drug therapy
CPT/HCPCS: 36415; 80053; 83735; 84439; 84443; 85025

== ENCOUNTER 2023-07-21 04:44 | Outpatient (CLI) | payer BC, SELFPAY ==
[2023-07-21 10:12] LABS: Abs Immature Grans 0.07 10^3/uL (0.0-0.06); Absolute Eosinophil Count 0.08 10^3/uL (0.0-0.7); Absolute Lymphocyte Count 3.27 10^3/uL (1.2-3.4); Basophils % 0.5; Eosinophils % 0.6; HCT 38.9 % (40.0-50.0); HGB 13.6 g/dL (13.5-17.5); Immature Grans % 0.5; Lymphocytes % 25.3; MCH 34.7 pg (27.0-33.0); MCV 99 fL (80-95); MPV 9.2 fL (8.0-11.0); Monocytes % 7.4; Neutrophils % 65.7; Platelet Count 336 10^3/uL (130-400); RBC 3.92 10^6/uL (4.36-5.78); RDW 13.8 % (11.8-14.1); RDW-SD 50.1 fL; WBC 12.92 10^3/uL (4.4-10.8)
[2023-07-21 10:15] LABS: Absolute Basophil Count 0.06 10^3/uL (0.0-0.2); Absolute Monocyte Count 0.96 10^3/uL (0.1-0.8); Absolute Neutrophil Count 8.49 10^3/uL (1.2-6.7)
[2023-07-21 10:40] LABS: ALT 69 U/L (16-63); AST 25 U/L (15-37); Albumin 3.7 g/dL (3.4-5.0); Alkaline Phosphatase 79 U/L (46-116); Anion Gap 8.4 mmol/L (3-11); BUN 18 mg/dL (7-18); Bilirubin, Total 0.2 mg/dL (0.2-1.0); CO2 28.6 mmol/L (21.0-32.0); CREATININE 1.5 mg/dL (0.70-1.30); Calcium 9.7 mg/dL (8.5-10.1); Chloride 102 mmol/L (98-107); Estimated GFR 57.07 (mL/min/1.73m2); FREE T4 1.02 ng/dL (0.76-1.46); Glucose 99 mg/dL (74-106); Magnesium 1.8 mg/dL (1.8-2.4); Potassium 4.6 mmol/L (3.5-5.1); Sodium 139 mmol/L (136-145); TSH 0.15 uIU/mL (0.36-3.74); Total Protein 7.6 g/dL (6.4-8.2)
== END 2023-07-21 04:45 | disposition home or self-care (01) ==
LOC: LBO 04:44
PROVIDERS: PCP Nurse Practitioner; Visit Provider Internal Medicine Medical Oncology
DX: C34.92 Malignant neoplasm of unspecified part of left bronchus or lung (principal)
CPT/HCPCS: 36415; 80053; 83735; 84439; 84443; 85025

== ENCOUNTER 2023-08-11 04:28 | Outpatient (CLI) | payer BC, SELFPAY ==
[2023-08-11 11:57] LABS: Abs Immature Grans 0.03 10^3/uL (0.0-0.06); Absolute Basophil Count 0.08 10^3/uL (0.0-0.2); Absolute Eosinophil Count 0.11 10^3/uL (0.0-0.7); Absolute Lymphocyte Count 3.59 10^3/uL (1.2-3.4); Basophils % 0.7; Eosinophils % 0.9; HCT 37.8 % (40.0-50.0); HGB 13.2 g/dL (13.5-17.5); Immature Grans % 0.3; Lymphocytes % 30.7; MCH 34.2 pg (27.0-33.0); MCHC 34.9 % (32.0-36.0); MCV 98 fL (80-95); MPV 9.2 fL (8.0-11.0); Monocytes % 7.4; Platelet Count 322 10^3/uL (130-400); RBC 3.86 10^6/uL (4.36-5.78); RDW 12.5 % (11.8-14.1); RDW-SD 44.5 fL
[2023-08-11 11:59] LABS: Absolute Monocyte Count 0.87 10^3/uL (0.1-0.8); Absolute Neutrophil Count 7.02 10^3/uL (1.2-6.7)
[2023-08-11 12:22] LABS: ALT 48 U/L (16-63); AST 22 U/L (15-37); Albumin 3.5 g/dL (3.4-5.0); Alkaline Phosphatase 89 U/L (46-116); BUN 14 mg/dL (7-18); Bilirubin, Total 0.3 mg/dL (0.2-1.0); CREATININE 1.4 mg/dL (0.70-1.30); Calcium 9.6 mg/dL (8.5-10.1); Chloride 104 mmol/L (98-107); Estimated GFR 61.61 (mL/min/1.73m2); FREE T4 0.75 ng/dL (0.76-1.46); Glucose 94 mg/dL (74-106); Magnesium 1.7 mg/dL (1.8-2.4); Potassium 3.8 mmol/L (3.5-5.1); Sodium 142 mmol/L (136-145); TSH 0.52 uIU/mL (0.36-3.74); Total Protein 7.5 g/dL (6.4-8.2)
== END 2023-08-11 04:29 | disposition home or self-care (01) ==
LOC: LBO 04:28
PROVIDERS: PCP Nurse Practitioner; Visit Provider Internal Medicine Medical Oncology
DX: C34.92 Malignant neoplasm of unspecified part of left bronchus or lung (principal); Z79.899 Other long term (current) drug therapy
CPT/HCPCS: 36415; 80053; 83735; 84439; 84443; 85025

== ENCOUNTER 2023-09-01 04:59 | Outpatient (CLI) | payer BC, SELFPAY ==
[2023-09-01 11:55] LABS: Abs Immature Grans 0.05 10^3/uL (0.0-0.06); Absolute Basophil Count 0.07 10^3/uL (0.0-0.2); Absolute Eosinophil Count 0.03 10^3/uL (0.0-0.7); Absolute Lymphocyte Count 2.48 10^3/uL (1.2-3.4); Absolute Monocyte Count 0.64 10^3/uL (0.1-0.8); Absolute Neutrophil Count 7.07 10^3/uL (1.2-6.7); Basophils % 0.7; Eosinophils % 0.3; HCT 38.7 % (40.0-50.0); HGB 13.1 g/dL (13.5-17.5); Immature Grans % 0.5; MCH 33.7 pg (27.0-33.0); MCHC 33.9 % (32.0-36.0); MCV 100 fL (80-95); MPV 8.8 fL (8.0-11.0); Monocytes % 6.2; Neutrophils % 68.3; Platelet Count 345 10^3/uL (130-400); RBC 3.89 10^6/uL (4.36-5.78); RDW 12.5 % (11.8-14.1); RDW-SD 45.1 fL; WBC 10.34 10^3/uL (4.4-10.8)
[2023-09-01 12:20] LABS: ALT 54 U/L (16-63); AST 25 U/L (15-37); Albumin 3.3 g/dL (3.4-5.0); Alkaline Phosphatase 89 U/L (46-116); Anion Gap 7.3 mmol/L (3-11); BUN 14 mg/dL (7-18); Bilirubin, Total 0.3 mg/dL (0.2-1.0); CO2 26.7 mmol/L (21.0-32.0); CREATININE 1.4 mg/dL (0.70-1.30); Calcium 9.1 mg/dL (8.5-10.1); Chloride 105 mmol/L (98-107); Estimated GFR 61.61 (mL/min/1.73m2); FREE T4 0.66 ng/dL (0.76-1.46); Glucose 99 mg/dL (74-106); Magnesium 1.9 mg/dL (1.8-2.4); Potassium 4.6 mmol/L (3.5-5.1); Sodium 139 mmol/L (136-145); TSH 0.43 uIU/Ml (0.36-3.74); Total Protein 7.3 g/dL (6.4-8.2)
== END 2023-09-01 05:00 | disposition home or self-care (01) ==
LOC: LBO 04:59
PROVIDERS: PCP Nurse Practitioner; Visit Provider Internal Medicine Medical Oncology
DX: C34.92 Malignant neoplasm of unspecified part of left bronchus or lung (principal); Z79.899 Other long term (current) drug therapy
CPT/HCPCS: 36415; 80053; 83735; 84439; 84443; 85025

== ENCOUNTER 2023-09-22 05:15 | Outpatient (CLI) | payer BC, SELFPAY ==
[2023-09-22 07:52] LABS: Abs Immature Grans 0.06 10^3/uL (0.0-0.06); Absolute Basophil Count 0.06 10^3/uL (0.0-0.2); Absolute Eosinophil Count 0.04 10^3/uL (0.0-0.7); Absolute Lymphocyte Count 1.84 10^3/uL (1.2-3.4); Absolute Monocyte Count 0.76 10^3/uL (0.1-0.8); Absolute Neutrophil Count 7.97 10^3/uL (1.2-6.7); Basophils % 0.6; Eosinophils % 0.4; HCT 37.8 % (40.0-50.0); HGB 12.5 g/dL (13.5-17.5); Immature Grans % 0.6; Lymphocytes % 17.1; MCHC 33.1 % (32.0-36.0); MCV 103 fL (80-95); MPV 8.7 fL (8.0-11.0); Monocytes % 7.1; Neutrophils % 74.2; Platelet Count 307 10^3/uL (130-400); RBC 3.68 10^6/uL (4.36-5.78); RDW 12.8 % (11.8-14.1); RDW-SD 48.7 fL; WBC 10.73 10^3/uL (4.4-10.8)
[2023-09-22 08:17] LABS: ALT 40 U/L (16-63); AST 17 U/L (15-37); Albumin 3.3 g/dL (3.4-5.0); Alkaline Phosphatase 88 U/L (46-116); Anion Gap 8.8 mmol/L (3-11); BUN 20 mg/dL (7-18); Bilirubin, Total 0.2 mg/dL (0.2-1.0); CO2 27.2 mmol/L (21.0-32.0); CREATININE 1.3 mg/dL (0.70-1.30); Calcium 9.2 mg/dL (8.5-10.1); Chloride 105 mmol/L (98-107); Estimated GFR 67.34 (mL/min/1.73m2); FREE T4 1.33 ng/dL (0.76-1.46); Glucose 113 mg/dL (74-106); Magnesium 1.9 mg/dL (1.8-2.4); Potassium 4.4 mmol/L (3.5-5.1); Sodium 141 mmol/L (136-145); TSH 0.03 uIU/Ml (0.36-3.74); Total Protein 7.2 g/dL (6.4-8.2)
== END 2023-09-22 05:16 | disposition home or self-care (01) ==
LOC: LBO 05:15
PROVIDERS: PCP Nurse Practitioner; Visit Provider Internal Medicine Medical Oncology
DX: C34.92 Malignant neoplasm of unspecified part of left bronchus or lung (principal)
CPT/HCPCS: 36415; 80053; 83735; 84439; 84443; 85025

== ENCOUNTER 2023-10-13 05:58 | Outpatient (CLI) | payer BC, SELFPAY ==
[2023-10-13 12:40] LABS: Abs Immature Grans 0.04 10^3/uL (0.0-0.06); Absolute Basophil Count 0.05 10^3/uL (0.0-0.2); Absolute Eosinophil Count 0.03 10^3/uL (0.0-0.7); Absolute Lymphocyte Count 2.51 10^3/uL (1.2-3.4); Absolute Monocyte Count 0.69 10^3/uL (0.1-0.8); Basophils % 0.4; Eosinophils % 0.3; HCT 40.2 % (40.0-50.0); HGB 13.5 g/dL (13.5-17.5); Immature Grans % 0.3; Lymphocytes % 21.8; MCH 33.8 pg (27.0-33.0); MCHC 33.6 % (32.0-36.0); MCV 101 fL (80-95); MPV 8.9 fL (8.0-11.0); Neutrophils % 71.2; Platelet Count 367 10^3/uL (130-400); RDW-SD 48.4 fL
[2023-10-13 12:41] LABS: Absolute Neutrophil Count 8.19 10^3/uL (1.2-6.7)
[2023-10-13 13:13] LABS: ALT 42 U/L (16-63); AST 19 U/L (15-37); Albumin 3.6 g/dL (3.4-5.0); Alkaline Phosphatase 88 U/L (46-116); Anion Gap 8.4 mmol/L (3-11); BUN 25 mg/dL (7-18); Bilirubin, Total 0.3 mg/dL (0.2-1.0); CO2 26.6 mmol/L (21.0-32.0); CREATININE 1.7 mg/dL (0.70-1.30); Calcium 9.3 mg/dL (8.5-10.1); Chloride 103 mmol/L (98-107); Estimated GFR 48.81 (mL/min/1.73m2); Glucose 96 mg/dL (74-106); Potassium 4.8 mmol/L (3.5-5.1); Sodium 138 mmol/L (136-145); TSH 0.04 uIU/Ml (0.36-3.74); Total Protein 7.5 g/dL (6.4-8.2)
== END 2023-10-13 05:59 | disposition home or self-care (01) ==
LOC: LBO 05:58
PROVIDERS: PCP Nurse Practitioner; Visit Provider Internal Medicine Medical Oncology
DX: C34.92 Malignant neoplasm of unspecified part of left bronchus or lung (principal); Z79.899 Other long term (current) drug therapy
CPT/HCPCS: 36415; 80053; 83735; 84439; 84443; 85025

== ENCOUNTER 2023-11-03 05:21 | Outpatient (CLI) | payer BC, SELFPAY ==
[2023-11-03 09:53] LABS: Abs Immature Grans 0.04 10^3/uL (0.0-0.06); Absolute Eosinophil Count 0.05 10^3/uL (0.0-0.7); Absolute Monocyte Count 0.62 10^3/uL (0.1-0.8); Basophils % 0.8 %; Eosinophils % 0.4 %; HCT 42.4 % (40.0-50.0); HGB 14.5 g/dL (13.5-17.5); Immature Grans % 0.3 %; MCHC 34.2 % (32.0-36.0); MCV 99 fL (80-95); MPV 9.7 fL (8.0-11.0); Neutrophils % 72.5 %; Platelet Count 256 10^3/uL (130-400); RBC 4.27 10^6/uL (4.36-5.78); RDW 11.8 % (11.8-14.1); RDW-SD 43.3 fL; WBC 12.38 10^3/uL (4.4-10.8)
[2023-11-03 09:55] LABS: Absolute Neutrophil Count 8.98 10^3/uL (1.2-6.7)
[2023-11-03 10:27] LABS: ALT 30 U/L (16-63); AST 18 U/L (15-37); Albumin 3.6 g/dL (3.4-5.0); Alkaline Phosphatase 87 U/L (46-116); Anion Gap 10.2 mmol/L (3-11); BUN 14 mg/dL (7-18); Bilirubin, Total 0.3 mg/dL (0.2-1.0); CO2 25.8 mmol/L (21.0-32.0); CREATININE 1.3 mg/dL (0.70-1.30); Calcium 9.4 mg/dL (8.5-10.1); Chloride 104 mmol/L (98-107); Estimated GFR 67.34 (mL/min/1.73m2); FREE T4 1.41 ng/dL (0.76-1.46); Glucose 104 mg/dL (74-106); Magnesium 1.7 mg/dL (1.8-2.4); Potassium 4.5 mmol/L (3.5-5.1); Sodium 140 mmol/L (136-145); TSH 0.01 uIU/Ml (0.36-3.74); Total Protein 7.4 g/dL (6.4-8.2)
== END 2023-11-03 05:22 | disposition home or self-care (01) ==
LOC: LBO 05:22
PROVIDERS: PCP Nurse Practitioner; Visit Provider Internal Medicine Medical Oncology
DX: C34.92 Malignant neoplasm of unspecified part of left bronchus or lung (principal); Z79.899 Other long term (current) drug therapy
CPT/HCPCS: 36415; 80053; 83735; 84439; 84443; 85025

== ENCOUNTER 2023-11-26 05:03 | Outpatient (CLI) | payer BC, SELFPAY ==
[2023-11-26 12:23] LABS: Abs Immature Grans 0.03 10^3/uL (0.0-0.06); Absolute Eosinophil Count 0.07 10^3/uL (0.0-0.7); Absolute Lymphocyte Count 1.94 10^3/uL (1.2-3.4); Absolute Monocyte Count 0.47 10^3/uL (0.1-0.8); Absolute Neutrophil Count 6.71 10^3/uL (1.2-6.7); Basophils % 1.1 %; Eosinophils % 0.8 %; Immature Grans % 0.3 %; Lymphocytes % 20.8 %; MCH 33.9 pg (27.0-33.0); MCHC 34.2 % (32.0-36.0); MCV 99 fL (80-95); MPV 9.2 fL (8.0-11.0); Platelet Count 313 10^3/uL (130-400); RBC 3.83 10^6/uL (4.36-5.78); RDW 11.8 % (11.8-14.1); RDW-SD 42.8 fL; WBC 9.32 10^3/uL (4.4-10.8)
[2023-11-26 12:48] LABS: ALT 33 U/L (16-63); AST 21 U/L (15-37); Albumin 3.1 g/dL (3.4-5.0); Alkaline Phosphatase 83 U/L (46-116); BUN 14 mg/dL (7-18); Bilirubin, Total 0.2 mg/dL (0.2-1.0); CREATININE 1.4 mg/dL (0.70-1.30); Calcium 8.7 mg/dL (8.5-10.1); Chloride 107 mmol/L (98-107); Estimated GFR 61.61 (mL/min/1.73m2); FREE T4 1.27 ng/dL (0.76-1.46); Glucose 93 mg/dL (74-106); Magnesium 1.8 mg/dL (1.8-2.4); Potassium 4.3 mmol/L (3.5-5.1); Sodium 144 mmol/L (136-145); TSH 0.02 uIU/Ml (0.36-3.74); Total Protein 6.6 g/dL (6.4-8.2)
== END 2023-11-26 05:04 | disposition home or self-care (01) ==
LOC: LBO 05:03
PROVIDERS: PCP Nurse Practitioner; Visit Provider Internal Medicine Medical Oncology
DX: C34.92 Malignant neoplasm of unspecified part of left bronchus or lung (principal); Z79.899 Other long term (current) drug therapy
CPT/HCPCS: 36415; 80053; 83735; 84439; 84443; 85025

== ENCOUNTER 2023-12-01 13:03 | Outpatient (REF) | payer BC, SELFPAY ==
[2023-12-01 15:50] LABS: Bilirubin Negative (Negative); Blood Negative (Negative); Clarity Clear (Clear); Glucose Negative (Negative); Ketones Negative (Negative); Leukocyte Esterase Negative (Negative); Nitrite Negative (Negative); Specific Gravity 1.025 (1.005-1.025); Urobilinogen 0.2 mg/dL (Up to 0.2); pH 5.5 (5-8)
[2023-12-01 16:10] LABS: Bacteria Rare HPF (Negative); C & S Indicated? C&S Done As Ordered; Casts 0-2 Hyaline LPF (Negative); Crystals Negative HPF (Negative); Epithelial Cells Rare HPF (Negative); Mucus Negative (Negative); RBC Negative HPF (0-2); WBC 0-2 HPF (0-5)
== END 2023-12-01 13:04 | disposition home or self-care (01) ==
LOC: LBN 13:03
PROVIDERS: PCP Nurse Practitioner; Visit Provider Nurse Practitioner
DX: R35.0 Frequency of micturition (principal); R82.89 Other abnormal findings on cytological and histological examination of urine
CPT/HCPCS: 81003; 81015; 87086

== ENCOUNTER 2023-12-15 13:42 | Outpatient (CLI) | payer BC, SELFPAY ==
[2023-12-15 13:16] LABS: Abs Immature Grans 0.07 10^3/uL (0.0-0.06); Absolute Basophil Count 0.09 10^3/uL (0.0-0.2); Absolute Eosinophil Count 0.09 10^3/uL (0.0-0.7); Basophils % 0.7 %; Eosinophils % 0.7 %; HCT 40.8 % (40.0-50.0); Immature Grans % 0.6 %; Lymphocytes % 25.7 %; MCH 33.9 pg (27.0-33.0); MCHC 34.3 % (32.0-36.0); MCV 99 fL (80-95); MPV 9.4 fL (8.0-11.0); Monocytes % 6.4 %; Neutrophils % 65.9 %; Platelet Count 357 10^3/uL (130-400); RBC 4.13 10^6/uL (4.36-5.78); RDW 12.1 % (11.8-14.1); WBC 12.43 10^3/uL (4.4-10.8)
[2023-12-15 13:17] LABS: Absolute Lymphocyte Count 3.19 10^3/uL (1.2-3.4); Absolute Neutrophil Count 8.19 10^3/uL (1.2-6.7)
[2023-12-15 13:35] LABS: ALT 43 U/L (16-63); AST 21 U/L (15-37); Albumin 3.2 g/dL (3.4-5.0); Alkaline Phosphatase 91 U/L (46-116); Anion Gap 8.1 mmol/L (3-11); BUN 16 mg/dL (7-18); Bilirubin, Total 0.2 mg/dL (0.2-1.0); CO2 27.9 mmol/L (21.0-32.0); CREATININE 1.4 mg/dL (0.70-1.30); Calcium 9.2 mg/dL (8.5-10.1); Chloride 108 mmol/L (98-107); Estimated GFR 61.61 (mL/min/1.73m2); FREE T4 1.05 ng/dL (0.76-1.46); Glucose 110 mg/dL (74-106); Magnesium 1.7 mg/dL (1.8-2.4); Potassium 4.1 mmol/L (3.5-5.1); Sodium 144 mmol/L (136-145); TSH 0.02 uIU/Ml (0.36-3.74); Total Protein 6.9 g/dL (6.4-8.2)
== END 2023-12-15 13:43 | disposition home or self-care (01) ==
LOC: LBO 13:42
PROVIDERS: PCP Nurse Practitioner; Visit Provider Nurse Practitioner Family
DX: C34.92 Malignant neoplasm of unspecified part of left bronchus or lung (principal); Z79.899 Other long term (current) drug therapy
CPT/HCPCS: 36415; 80053; 83735; 84439; 84443; 85025

== ENCOUNTER → 2023-12-30 01:53 | Outpatient (CLI) | payer BC, SELFPAY ==
--- NOTE | 2023-12-30 | DI.CT_ITS ---
Exam(s) CT CHEST/ABD/PEL W EXAM: CT CHEST/ABD/PEL W CLINICAL HISTORY: C34.92 Stage 4 lung CA,left. TECHNIQUE: Imaging Protocol: Axial computed tomography images with coronal and sagittal reformatted images were created and reviewed CONTRAST MATERIAL: Intravenous: Omnipaque 350 Contrast volume:100 ml Oral: Yes. Oral contrast was also administered for bowel opacification. COMPARISON: CT CT CHEST/ABD/PEL W from 10/07/2023 FINDINGS: CHEST: LUNGS: There is continued stability of the increased markings extending from the left hilum to the pl eural surface of the left upper lobe. No cavitation at this level no new focal left lung findings. The opposite-right lung remains clear. There are no pleural effusions. No significant focal finding s in the trachea and mainstem bronchi. No significant secretions in the airways. MEDIASTINUM: There is no hilar nor mediastinal adenopathy. Visualized thyroid unremarkable. CARDIAC: Heart size is normal. There is no pericardial effusion.Caliber of the thoracic aorta is wit hin normal limits. OSSEOUS: No significant osseous lesions.No fractures.. ABDOMEN: There is no ascites. LIVER: There are no focal hepatic lesions nor dilatation of intrahepatic ducts. GALLBLADDER/BILIARY: No obvious gallbladder pathology. CBD is not dilated. PANCREAS: No evidence of pancreatic mass nor dilatation of the pancreatic duct. SPLEEN: Spleen is not enlarged. There are no intrasplenic lesions. Splenic and portal veins are chambers nt. ADRENALS: There are no significant adrenal masses. KIDNEYS: No calculi nor hydronephrosis. No solid renal masses. There is small cortical cysts evident both kidneys, the largest again noted to be in the superior pole of the right kidney and measuring 3 by 1.8 cm unchanged. These cysts do not require further imaging workup. ABDOMINAL AORTA: Abdominal aorta is calcified but not enlarged. LYMPH NODES: There is no retroperitoneal nor paraaortic adenopathy. ABDOMINAL WALL: No evidence of significant anterior abdominal wall nor inguinal hernia. GI: There is no evidence of bowel obstruction. PELVIS: LYMPH NODES: There is no intrapelvic nor inguinal adenopathy. GI: No evidence of appendicitis.There is no significant sigmoid diverticular disease. URINARY BLADDER: Uniformly thickened urinary bladder wall due to cystitis or under distension. No in traluminal calculi evident. REPRODUCTIVE: Prostate size normal. Seminal vesicles unremarkable. OSSEOUS: No significant osseous lesions. No fractures. IMPRESSION: 1. Continued stable appearance of previously described left upper lobe remnant infiltrate or scarring . No new significant focal lung findings, pleural effusions, nor intrathoracic adenopathy. 2. No new significant findings in the abdomen pelvis. No evidence of metastatic disease in the abdom en pelvis. No ascites. RADIATION DOSE DELIVERED: 1,589.53mGy.cm Total DLP DATA REPOSITORY: All CT scans at this facility are submitted to the National Radiology Data Registry (NRDR) Dose Index Registry (DIR) with the [employer] (A[employer]). RADIATION OPTIMIZATION: All CT scans at this facility use at least one of these dose optimization te chniques: automated exposure control; mA and/or kV adjustment per patient size (includes targeted exa ms where dose is matched to clinical indication); or iterative reconstruction.
[2023-12-30 08:25] LABS: Abs Immature Grans 0.05 10^3/uL (0.0-0.06); Absolute Basophil Count 0.02 10^3/uL (0.0-0.2); Absolute Eosinophil Count 0.03 10^3/uL (0.0-0.7); Absolute Lymphocyte Count 1.91 10^3/uL (1.2-3.4); Absolute Monocyte Count 0.45 10^3/uL (0.1-0.8); Absolute Neutrophil Count 5.82 10^3/uL (1.2-6.7); Basophils % 0.2 %; Eosinophils % 0.4 %; HGB 13.9 g/dL (13.5-17.5); Immature Grans % 0.6 %; Lymphocytes % 23.1 %; MCH 33.7 pg (27.0-33.0); MCHC 33.9 % (32.0-36.0); MCV 99 fL (80-95); MPV 8.8 fL (8.0-11.0); Monocytes % 5.4 %; Neutrophils % 70.3 %; Platelet Count 280 10^3/uL (130-400); RBC 4.13 10^6/uL (4.36-5.78); RDW 12.6 % (11.8-14.1); RDW-SD 45.4 fL; WBC 8.28 10^3/uL (4.4-10.8)
[2023-12-30] MEDS: Barium Sulfate 2% W/V-Creamy Vanilla Smoothie 450 ML BTL PO ×2 (08:27→08:28)
[2023-12-30 08:50] LABS: ALT 89 U/L (16-63); AST 54 U/L (15-37); Albumin 3.4 g/dL (3.4-5.0); Alkaline Phosphatase 97 U/L (46-116); Anion Gap 10.3 mmol/L (3-11); BUN 14 mg/dL (7-18); Bilirubin, Total 0.18 mg/dL (0.2-1.0); CO2 28.7 mmol/L (21.0-32.0); CREATININE 1.5 mg/dL (0.70-1.30); Calcium 9.3 mg/dL (8.5-10.1); Chloride 102 mmol/L (98-107); Estimated GFR 56.72 (mL/min/1.73m2); FREE T4 1.29 ng/dL (0.76-1.46); Glucose 114 mg/dL (74-106); Magnesium 1.6 mg/dL (1.8-2.4); Sodium 141 mmol/L (136-145); TSH 0.32 uIU/Ml (0.36-3.74); Total Protein 7.6 g/dL (6.4-8.2)
[2023-12-30] MEDS: Normal Saline - Diluent 50 ML VIAL IJ (10:06)
[2023-12-30] MEDS: Omnipaque 350 MG/ML 500 ML BTL-Imaging package IJ (10:06)
== END ==
PROVIDERS: Nurse Practitioner Family; PCP Nurse Practitioner; Visit Provider Internal Medicine Medical Oncology
DX: C34.92 Malignant neoplasm of unspecified part of left bronchus or lung (principal)
CPT/HCPCS: 36415; 74177; 80053; 71260; 83735; 84439; 84443; 85025

== ENCOUNTER 2024-01-05 13:59 | Outpatient (CLI) | payer BC, SELFPAY ==
[2024-01-05 14:19] LABS: Abs Immature Grans 0.04 10^3/uL (0.0-0.06); Absolute Basophil Count 0.08 10^3/uL (0.0-0.2); Absolute Eosinophil Count 0.06 10^3/uL (0.0-0.7); Absolute Lymphocyte Count 3.02 10^3/uL (1.2-3.4); Basophils % 0.7 %; Eosinophils % 0.5 %; HCT 38.5 % (40.0-50.0); HGB 13.6 g/dL (13.5-17.5); Immature Grans % 0.3 %; Lymphocytes % 25.7 %; MCHC 35.3 % (32.0-36.0); MCV 96 fL (80-95); MPV 9.3 fL (8.0-11.0); Monocytes % 7.1 %; Neutrophils % 65.7 %; Platelet Count 395 10^3/uL (130-400); RDW 12.7 % (11.8-14.1); RDW-SD 44.1 fL; WBC 11.76 10^3/uL (4.4-10.8)
[2024-01-05 14:25] LABS: Absolute Monocyte Count 0.83 10^3/uL (0.1-0.8); Absolute Neutrophil Count 7.73 10^3/uL (1.2-6.7)
[2024-01-05 14:42] LABS: ALT 38 U/L (16-63); AST 22 U/L (15-37); Albumin 3.5 g/dL (3.4-5.0); Alkaline Phosphatase 87 U/L (46-116); Anion Gap 9.6 mmol/L (3-11); BUN 16 mg/dL (7-18); Bilirubin, Total 0.24 mg/dL (0.2-1.0); CO2 26.4 mmol/L (21.0-32.0); CREATININE 1.6 mg/dL (0.70-1.30); Calcium 9.6 mg/dL (8.5-10.1); Chloride 106 mmol/L (98-107); Estimated GFR 52.49 (mL/min/1.73m2); FREE T4 1.37 ng/dL (0.76-1.46); Glucose 114 mg/dL (74-106); Potassium 3.7 mmol/L (3.5-5.1); Sodium 142 mmol/L (136-145); TSH 0.16 uIU/Ml (0.36-3.74); Total Protein 7.4 g/dL (6.4-8.2)
== END 2024-01-05 14:00 | disposition home or self-care (01) ==
LOC: LBO 14:00
PROVIDERS: PCP Nurse Practitioner; Visit Provider Nurse Practitioner Family
DX: Z79.899 Other long term (current) drug therapy (principal); C34.92 Malignant neoplasm of unspecified part of left bronchus or lung
CPT/HCPCS: 36415; 80053; 83735; 84439; 84443; 85025

== ENCOUNTER 2024-01-26 02:17 | Outpatient (CLI) | payer BC, SELFPAY ==
[2024-01-26 10:10] LABS: Abs Immature Grans 0.03 10^3/uL (0.0-0.06); Absolute Basophil Count 0.07 10^3/uL (0.0-0.2); Absolute Eosinophil Count 0.13 10^3/uL (0.0-0.7); Absolute Lymphocyte Count 3.31 10^3/uL (1.2-3.4); Absolute Monocyte Count 0.86 10^3/uL (0.1-0.8); Absolute Neutrophil Count 6.48 10^3/uL (1.2-6.7); Basophils % 0.6 %; Eosinophils % 1.2 %; HCT 40.2 % (40.0-50.0); HGB 13.6 g/dL (13.5-17.5); Immature Grans % 0.3 %; Lymphocytes % 30.4 %; MCH 33.3 pg (27.0-33.0); MCHC 33.8 % (32.0-36.0); MCV 99 fL (80-95); Monocytes % 7.9 %; Neutrophils % 59.6 %; Platelet Count 347 10^3/uL (130-400); RBC 4.08 10^6/uL (4.36-5.78); RDW-SD 46.6 fL; WBC 10.88 10^3/uL (4.4-10.8)
[2024-01-26 10:35] LABS: ALT 39 U/L (16-63); AST 22 U/L (15-37); Albumin 3.4 g/dL (3.4-5.0); Alkaline Phosphatase 96 U/L (46-116); BUN 26 mg/dL (7-18); Bilirubin, Total 0.22 mg/dL (0.2-1.0); CREATININE 1.7 mg/dL (0.70-1.30); Calcium 9.4 mg/dL (8.5-10.1); Chloride 108 mmol/L (98-107); Estimated GFR 48.81 (mL/min/1.73m2); FREE T4 1.19 ng/dL (0.76-1.46); Glucose 87 mg/dL (74-106); Magnesium 1.8 mg/dL (1.8-2.4); Potassium 4.4 mmol/L (3.5-5.1); Sodium 145 mmol/L (136-145); Total Protein 7.4 g/dL (6.4-8.2)
== END 2024-01-26 02:18 | disposition home or self-care (01) ==
LOC: LBO 02:17
PROVIDERS: Nurse Practitioner Family; PCP Nurse Practitioner; Visit Provider Internal Medicine Medical Oncology
DX: Z79.899 Other long term (current) drug therapy (principal); C34.92 Malignant neoplasm of unspecified part of left bronchus or lung
CPT/HCPCS: 36415; 80053; 83735; 84439; 84443; 85025

== ENCOUNTER 2024-02-16 04:12 | Outpatient (CLI) | payer BC, SELFPAY ==
[2024-02-16 07:53] LABS: Abs Immature Grans 0.19 10^3/uL (0.0-0.06); Absolute Eosinophil Count 0.13 10^3/uL (0.0-0.7); Absolute Monocyte Count 1.43 10^3/uL (0.1-0.8); Absolute Neutrophil Count 7.24 10^3/uL (1.2-6.7); Basophils % 0.8 %; HCT 41.1 % (40.0-50.0); HGB 13.6 g/dL (13.5-17.5); Immature Grans % 1.4 %; Lymphocytes % 31.4 %; MCH 33.4 pg (27.0-33.0); MCHC 33.1 % (32.0-36.0); MCV 101 fL (80-95); MPV 9.4 fL (8.0-11.0); Monocytes % 10.8 %; Neutrophils % 54.6 %; Platelet Count 398 10^3/uL (130-400); RBC 4.07 10^6/uL (4.36-5.78); RDW 13.7 % (11.8-14.1); RDW-SD 50.4 fL; WBC 13.26 10^3/uL (4.4-10.8)
[2024-02-16 07:54] LABS: Absolute Basophil Count 0.11 10^3/uL (0.0-0.2); Absolute Lymphocyte Count 4.16 10^3/uL (1.2-3.4)
[2024-02-16 08:23] LABS: ALT 50 U/L (16-63); AST 20 U/L (15-37); Albumin 3.3 g/dL (3.4-5.0); Alkaline Phosphatase 95 U/L (46-116); Anion Gap 8.7 mmol/L (3-11); BUN 15 mg/dL (7-18); Bilirubin, Total 0.15 mg/dL (0.2-1.0); CO2 28.3 mmol/L (21.0-32.0); CREATININE 1.5 mg/dL (0.70-1.30); Calcium 9.6 mg/dL (8.5-10.1); Chloride 105 mmol/L (98-107); Estimated GFR 56.72 (mL/min/1.73m2); FREE T4 1.15 ng/dL (0.76-1.46); Glucose 101 mg/dL (74-106); Magnesium 1.7 mg/dL (1.8-2.4); Potassium 4.3 mmol/L (3.5-5.1); Sodium 142 mmol/L (136-145); TSH 0.07 uIU/Ml (0.36-3.74); Total Protein 7.4 g/dL (6.4-8.2)
== END 2024-02-16 04:13 | disposition home or self-care (01) ==
PROVIDERS: PCP Nurse Practitioner; Visit Provider Nurse Practitioner Family
DX: Z79.899 Other long term (current) drug therapy (principal); C34.92 Malignant neoplasm of unspecified part of left bronchus or lung
CPT/HCPCS: 36415; 80053; 83735; 84439; 84443; 85025

== ENCOUNTER 2024-03-08 01:52 | Outpatient (CLI) | payer BC, SELFPAY ==
[2024-03-08 09:46] LABS: Abs Immature Grans 0.06 10^3/uL (0.0-0.06); Absolute Basophil Count 0.06 10^3/uL (0.0-0.2); Absolute Monocyte Count 0.72 10^3/uL (0.1-0.8); Absolute Neutrophil Count 7.72 10^3/uL (1.2-6.7); Basophils % 0.5 %; Eosinophils % 0.3 %; HCT 38.7 % (40.0-50.0); HGB 12.8 g/dL (13.5-17.5); Immature Grans % 0.5 %; Lymphocytes % 26.1 %; MCH 34.3 pg (27.0-33.0); MCHC 33.1 % (32.0-36.0); MCV 104 fL (80-95); Monocytes % 6.2 %; Neutrophils % 66.4 %; Platelet Count 379 10^3/uL (130-400); RBC 3.73 10^6/uL (4.36-5.78); RDW 13.8 % (11.8-14.1); RDW-SD 53.1 fL; WBC 11.63 10^3/uL (4.4-10.8)
[2024-03-08 09:52] LABS: Absolute Eosinophil Count 0.03 10^3/uL (0.0-0.7); Absolute Lymphocyte Count 3.04 10^3/uL (1.2-3.4)
[2024-03-08 10:35] LABS: ALT 39 U/L (16-63); AST 20 U/L (15-37); Albumin 3.2 g/dL (3.4-5.0); Alkaline Phosphatase 88 U/L (46-116); Anion Gap 6.2 mmol/L (3-11); BUN 21 mg/dL (7-18); Bilirubin, Total 0.17 mg/dL (0.2-1.0); CO2 26.8 mmol/L (21.0-32.0); CREATININE 1.6 mg/dL (0.70-1.30); Calcium 9.5 mg/dL (8.5-10.1); Chloride 104 mmol/L (98-107); Estimated GFR 52.49 (mL/min/1.73m2); FREE T4 1.04 ng/dL (0.76-1.46); Glucose 90 mg/dL (74-106); Magnesium 1.9 mg/dL (1.8-2.4); Potassium 4.8 mmol/L (3.5-5.1); Sodium 137 mmol/L (136-145); TSH 0.12 uIU/Ml (0.36-3.74); Total Protein 7.4 g/dL (6.4-8.2)
== END 2024-03-08 01:53 | disposition home or self-care (01) ==
PROVIDERS: Internal Medicine Medical Oncology; PCP Nurse Practitioner; Visit Provider Nurse Practitioner Family
DX: Z79.899 Other long term (current) drug therapy
CPT/HCPCS: 36415; 80053; 83735; 84439; 84443; 85025

== ENCOUNTER 2024-03-31 02:06 | Outpatient (CLI) | payer BC, SELFPAY ==
[2024-03-31 12:31] LABS: Abs Immature Grans 0.04 10^3/uL (0.0-0.06); Absolute Basophil Count 0.09 10^3/uL (0.0-0.2); Absolute Lymphocyte Count 2.85 10^3/uL (1.2-3.4); Absolute Monocyte Count 0.55 10^3/uL (0.1-0.8); Basophils % 0.8 %; Eosinophils % 0.5 %; HCT 39.5 % (40.0-50.0); HGB 13.5 g/dL (13.5-17.5); Immature Grans % 0.4 %; MCH 34.2 pg (27.0-33.0); MCHC 34.2 % (32.0-36.0); MCV 100 fL (80-95); MPV 9.3 fL (8.0-11.0); Neutrophils % 67.3 %; Platelet Count 290 10^3/uL (130-400); RBC 3.95 10^6/uL (4.36-5.78); RDW 12.3 % (11.8-14.1); RDW-SD 45.4 fL; WBC 10.95 10^3/uL (4.4-10.8)
[2024-03-31 12:34] LABS: Absolute Eosinophil Count 0.05 10^3/uL (0.0-0.7); Absolute Neutrophil Count 7.37 10^3/uL (1.2-6.7)
[2024-03-31 12:55] LABS: ALT 32 U/L (16-63); AST 23 U/L (15-37); Albumin 3.5 g/dL (3.4-5.0); Alkaline Phosphatase 91 U/L (46-116); Anion Gap 8.1 mmol/L (3-11); BUN 13 mg/dL (7-18); CO2 25.9 mmol/L (21.0-32.0); CREATININE 1.5 mg/dL (0.70-1.30); Calcium 9.6 mg/dL (8.5-10.1); Chloride 103 mmol/L (98-107); Estimated GFR 56.72 (mL/min/1.73m2); FREE T4 1.19 ng/dL (0.76-1.46); Glucose 96 mg/dL (74-106); Magnesium 1.9 mg/dL (1.8-2.4); Potassium 4.3 mmol/L (3.5-5.1); Sodium 137 mmol/L (136-145); TSH 0.07 uIU/Ml (0.36-3.74); Total Protein 7.5 g/dL (6.4-8.2)
== END 2024-03-31 02:07 | disposition home or self-care (01) ==
PROVIDERS: PCP Nurse Practitioner; Referring Provider Nurse Practitioner Family; Visit Provider Nurse Practitioner Family
DX: Z79.899 Other long term (current) drug therapy (principal); C34.92 Malignant neoplasm of unspecified part of left bronchus or lung
CPT/HCPCS: 36415; 80053; 83735; 84439; 84443; 85025

== ENCOUNTER 2024-04-19 02:11 | Outpatient (CLI) | payer BC, SELFPAY ==
[2024-04-19 09:53] LABS: Abs Immature Grans 0.05 10^3/uL (0.0-0.06); Absolute Basophil Count 0.08 10^3/uL (0.0-0.2); Absolute Eosinophil Count 0.21 10^3/uL (0.0-0.7); Absolute Lymphocyte Count 3.54 10^3/uL (1.2-3.4); Absolute Monocyte Count 0.81 10^3/uL (0.1-0.8); Absolute Neutrophil Count 5.47 10^3/uL (1.2-6.7); Basophils % 0.8 %; Eosinophils % 2.1 %; HCT 40.5 % (40.0-50.0); HGB 13.4 g/dL (13.5-17.5); Immature Grans % 0.5 %; Lymphocytes % 34.8 %; MCH 33.9 pg (27.0-33.0); MCHC 33.1 % (32.0-36.0); MCV 103 fL (80-95); MPV 8.9 fL (8.0-11.0); Neutrophils % 53.8 %; Platelet Count 386 10^3/uL (130-400); RBC 3.95 10^6/uL (4.36-5.78); RDW 12.1 % (11.8-14.1); WBC 10.16 10^3/uL (4.4-10.8)
[2024-04-19 10:25] LABS: ALT 33 U/L (16-63); AST 28 U/L (15-37); Albumin 3.6 g/dL (3.4-5.0); Alkaline Phosphatase 77 U/L (46-116); BUN 20 mg/dL (7-18); Bilirubin, Total 0.24 mg/dL (0.2-1.0); CREATININE 1.5 mg/dL (0.70-1.30); Calcium 9.5 mg/dL (8.5-10.1); Chloride 104 mmol/L (98-107); Estimated GFR 56.72 (mL/min/1.73m2); FREE T4 0.85 ng/dL (0.76-1.46); Glucose 92 mg/dL (74-106); Magnesium 1.8 mg/dL (1.8-2.4); Potassium 4.2 mmol/L (3.5-5.1); Sodium 140 mmol/L (136-145); TSH 1.52 uIU/mL (0.36-3.74); Total Protein 7.3 g/dL (6.4-8.2)
== END 2024-04-19 02:12 | disposition home or self-care (01) ==
PROVIDERS: PCP Nurse Practitioner; Visit Provider Nurse Practitioner Family
DX: Z79.899 Other long term (current) drug therapy (principal); C34.92 Malignant neoplasm of unspecified part of left bronchus or lung
CPT/HCPCS: 36415; 80053; 83735; 84439; 84443; 85025

== ENCOUNTER 2024-04-27 15:21 | Outpatient (CLI) | payer BC, SELFPAY ==
--- NOTE | 2024-04-27 14:30 | DI.RAD_ITS ---
Exam(s) XR SHOULDER RT COMPLETE 2+V EXAM: XR SHOULDER RT COMPLETE 2+V CLINICAL HISTORY: BILATERAL SHOULDER PAIN. TECHNIQUE: 2D digital imaging was performed. COMPARISON: No exams were available for comparison FINDINGS: Two views No evidence of fracture or dislocation nor abnormal soft tissue calcifications. Subacromial space is not diminished. Glenohumeral joint appears unremarkable. Minimal findings in the AC joint. Ipsila teral clavicle appears intact as does the coracoid process. Bone density is normal and there are no osseous lesions. IMPRESSION: No significant radiographic findings on these two views of the right shoulder. DATA REPOSITORY: RADIATION DOSE DELIVERED:
--- NOTE | 2024-04-27 14:38 | DI.RAD_ITS ---
Exam(s) XR SHOULDER LT COMPLETE 2+V EXAM: XR SHOULDER LT COMPLETE 2+V CLINICAL HISTORY: BILATERAL SHOULDER PAIN. TECHNIQUE: 2D digital imaging was performed. COMPARISON: CR XR SHOULDER RT COMPLETE 2+V from 04/27/2024 FINDINGS: Two views No evidence of fracture or dislocation or abnormal soft tissue calcifications. Subacromial space is not diminished. There is no glenohumeral joint space narrowing but on the axial image there is a small osteophyte on the posterior articular surface of the humeral head. No degenerative subarticular cysts on either si de of the joint. Mild degenerative changes in the AC joint. Ipsilateral partially visualized clavic le unremarkable. No osseous lesions. Coracoid process unremarkable. IMPRESSION: Mild degenerative changes in the glenohumeral joint, as described above. DATA REPOSITORY: RADIATION DOSE DELIVERED:
== END 2024-04-27 15:22 | disposition home or self-care (01) ==
LOC: DIORS 15:21
PROVIDERS: PCP Nurse Practitioner; Visit Provider Student in an Organized Health Care Education/Training Program
DX: M25.511 Pain in right shoulder (principal); M25.512 Pain in left shoulder
CPT/HCPCS: 73030

== ENCOUNTER 2024-05-10 03:14 | Outpatient (CLI) | payer BC, SELFPAY ==
[2024-05-10 12:30] LABS: Abs Immature Grans 0.02 10^3/uL (0.0-0.06); Absolute Basophil Count 0.07 10^3/uL (0.0-0.2); Absolute Eosinophil Count 0.11 10^3/uL (0.0-0.7); Absolute Lymphocyte Count 4.03 10^3/uL (1.2-3.4); Absolute Monocyte Count 0.73 10^3/uL (0.1-0.8); Absolute Neutrophil Count 5.53 10^3/uL (1.2-6.7); Basophils % 0.7 %; HCT 41.9 % (40.0-50.0); HGB 14.6 g/dL (13.5-17.5); Immature Grans % 0.2 %; Lymphocytes % 38.4 %; MCH 34.1 pg (27.0-33.0); MCHC 34.8 % (32.0-36.0); MCV 98 fL (80-95); MPV 8.8 fL (8.0-11.0); Neutrophils % 52.7 %; Platelet Count 334 10^3/uL (130-400); RBC 4.28 10^6/uL (4.36-5.78); RDW 12.1 % (11.8-14.1); RDW-SD 43.5 fL; WBC 10.49 10^3/uL (4.4-10.8)
[2024-05-10 13:13] LABS: ALT 22 U/L (16-63); AST 17 U/L (15-37); Albumin 3.7 g/dL (3.4-5.0); Alkaline Phosphatase 84 U/L (46-116); Anion Gap 8.2 mmol/L (3-11); BUN 15 mg/dL (7-18); Bilirubin, Total 0.29 mg/dL (0.2-1.0); CO2 28.8 mmol/L (21.0-32.0); CREATININE 1.4 mg/dL (0.70-1.30); Calcium 9.6 mg/dL (8.5-10.1); Chloride 105 mmol/L (98-107); Estimated GFR 61.61 (mL/min/1.73m2); Glucose 92 mg/dL (74-106); Magnesium 1.7 mg/dL (1.8-2.4); Potassium 4.1 mmol/L (3.5-5.1); Sodium 142 mmol/L (136-145); TSH 0.66 uIU/mL (0.36-3.74); Total Protein 7.7 g/dL (6.4-8.2)
== END 2024-05-10 03:15 | disposition home or self-care (01) ==
LOC: LBO 03:15
PROVIDERS: PCP Nurse Practitioner; Visit Provider Internal Medicine Medical Oncology
DX: Z79.899 Other long term (current) drug therapy (principal); C34.92 Malignant neoplasm of unspecified part of left bronchus or lung
CPT/HCPCS: 36415; 80053; 83735; 84439; 84443; 85025

== ENCOUNTER 2024-05-19 01:28 | Outpatient (CLI) | payer BC, SELFPAY ==
--- NOTE | 2024-05-19 06:45 | DI.RAD_ITS ---
Exam(s) RF JOINT INJ. FLUORO GUID RAD EXAM: RF JOINT INJ. FLUORO GUID RAD CLINICAL HISTORY: R SHOULDER PAIN,arthritis rt glenohumeral joint,fluoro guided injection,. TECHNIQUE: 2D and realtime digital imaging was performed. CONTRAST MATERIAL: Oral barium Oral water soluble contrast was administered. COMPARISON: No exams were available for comparison FINDINGS: This therapeutic right shoulder steroid injection was performed at the request of the referring ortho pedic surgeon. Patient was consented by myself prior to this procedure. Patient was placed in supine position on the fluoroscopy table. Using sterile technique and adequate skin-subcutaneous anesthesia fluoroscopic guidance was used to a dvance a 22 gauge spinal needle into the glenohumeral joint via an anterior approach. Intra-articula r position was confirmed with injection 2 cc of Omnipaque 300. Thereafter a sterile solution of 40 m g Depo-Medrol and 4 cc of 0.5 percent bupivacaine was injected via the indwelling spinal needle. The indwelling needle was removed. The patient tolerated this procedure well and there were no intraprocedural complications. IMPRESSION: Successful right shoulder fluoroscopic guided steroid injection RADIATION DOSE DELIVERED: Ka,r=1.73mGy
--- NOTE | 2024-05-19 06:45 | DI.RAD_ITS ---
Exam(s) RF JOINT INJ. FLUORO GUID RAD EXAM: RF JOINT INJ. FLUORO GUID RAD CLINICAL HISTORY: LEFT SHOULDER PAIN,m19.012,arthritis glenohumeral joint,fluoro guided injec. TECHNIQUE: 2D and realtime digital imaging was performed. CONTRAST MATERIAL: See below COMPARISON: No exams were available for comparison FINDINGS: This left shoulder glenohumeral joint therapeutic injection was performed at the request of the refer ring orthopedic surgeon. Patient was consented by myself prior to this procedure Patient was placed in the supine position on the fluoroscopy table. Using sterile technique and adequate skin-subcutaneous anesthesia, fluoroscopic guidance was used to advance a 22 gauge spinal needle into the glenohumeral joint via an anterior approach. Position was confirmed with injection of 2 cc Omnipaque 300 into the joint space. Thereafter a sterile solution o f 40 milligrams Depo-Medrol and 4 cc 0.5 percent bupivacaine was injected into the intra-articular co mpartment via the indwelling 22 gauge spinal needle. Needle was then removed. Patient tolerated this procedure well and there were no intraprocedural complications. IMPRESSION: Successful left shoulder glenohumeral joint steroid injection as described above. RADIATION DOSE DELIVERED: Ka,r=2.21mGy
[2024-05-19] MEDS: Omnipaque 300 MG/ML 10 ML BTL 5 ML IJ ×2 (09:49→09:53)
[2024-05-19] MEDS: methylPREDNISolone ACETATE 40 MG/ML VIAL IJ ×2 (09:50→09:51)
[2024-05-19] MEDS: Bupivacaine 0.5% Pres-Free 10 ML VIAL 5 ML IJ ×2 (09:50→09:53)
[2024-05-19] MEDS: Lidocaine 1% Pres-Free 30 ML VIAL 10 ML IJ (09:51)
== END 2024-05-19 01:48 ==
PROVIDERS: PCP Nurse Practitioner; Visit Provider Student in an Organized Health Care Education/Training Program
DX: M19.011 Primary osteoarthritis, right shoulder (principal); M19.012 Primary osteoarthritis, left shoulder
CPT/HCPCS: 20610; 77002; J0665; J1010

== ENCOUNTER 2024-05-19 11:46 | Outpatient (REF) | payer BC, SELFPAY ==
[2024-05-19 15:35] LABS: Anion Gap 7.6 mmol/L (3-11); BUN 20 mg/dL (7-18); CO2 26.4 mmol/L (21.0-32.0); CREATININE 1.6 mg/dL (0.70-1.30); Calcium 9.5 mg/dL (8.5-10.1); Chloride 104 mmol/L (98-107); Estimated GFR 52.49 (mL/min/1.73m2); Glucose 105 mg/dL (74-106); Potassium 4.3 mmol/L (3.5-5.1); Sodium 138 mmol/L (136-145)
== END 2024-05-19 11:47 | disposition home or self-care (01) ==
LOC: LBN 11:46
PROVIDERS: PCP Nurse Practitioner; Visit Provider Nurse Practitioner Family
DX: I10 Essential (primary) hypertension (principal); F41.1 Generalized anxiety disorder; C34.92 Malignant neoplasm of unspecified part of left bronchus or lung
CPT/HCPCS: 80048

== ENCOUNTER 2024-05-31 04:38 | Outpatient (CLI) | payer BC, SELFPAY ==
[2024-05-31 12:39] LABS: Abs Immature Grans 0.06 10^3/uL (0.0-0.06); Absolute Basophil Count 0.09 10^3/uL (0.0-0.2); Absolute Eosinophil Count 0.04 10^3/uL (0.0-0.7); Absolute Lymphocyte Count 2.64 10^3/uL (1.2-3.4); Absolute Monocyte Count 0.69 10^3/uL (0.1-0.8); Absolute Neutrophil Count 8.25 10^3/uL (1.2-6.7); Basophils % 0.8 %; Eosinophils % 0.3 %; HCT 40.5 % (40.0-50.0); HGB 13.5 g/dL (13.5-17.5); Immature Grans % 0.5 %; Lymphocytes % 22.4 %; MCH 33.5 pg (27.0-33.0); MCHC 33.3 % (32.0-36.0); MCV 101 fL (80-95); MPV 8.9 fL (8.0-11.0); Monocytes % 5.9 %; Neutrophils % 70.1 %; Platelet Count 297 10^3/uL (130-400); RBC 4.03 10^6/uL (4.36-5.78); RDW 12.7 % (11.8-14.1); RDW-SD 47.4 fL; WBC 11.77 10^3/uL (4.4-10.8)
[2024-05-31 13:13] LABS: ALT 34 U/L (16-63); AST 18 U/L (15-37); Albumin 3.8 g/dL (3.4-5.0); Alkaline Phosphatase 71 U/L (46-116); Anion Gap 8.1 mmol/L (3-11); BUN 27 mg/dL (7-18); Bilirubin, Total 0.21 mg/dL (0.2-1.0); CO2 29.9 mmol/L (21.0-32.0); CREATININE 1.5 mg/dL (0.70-1.30); Calcium 9.3 mg/dL (8.5-10.1); Chloride 106 mmol/L (98-107); Estimated GFR 56.72 (mL/min/1.73m2); FREE T4 0.83 ng/dL (0.76-1.46); Glucose 95 mg/dL (74-106); Sodium 144 mmol/L (136-145); TSH 0.71 uIU/mL (0.36-3.74); Total Protein 7.6 g/dL (6.4-8.2)
== END 2024-05-31 04:39 | disposition home or self-care (01) ==
LOC: LBO 04:38
PROVIDERS: PCP Nurse Practitioner; Visit Provider Internal Medicine Medical Oncology
DX: Z79.899 Other long term (current) drug therapy (principal); C34.92 Malignant neoplasm of unspecified part of left bronchus or lung
CPT/HCPCS: 36415; 80053; 83735; 84439; 84443; 85025

== ENCOUNTER 2024-06-14 13:17 | Outpatient (CLI) | payer BC, SELFPAY ==
[2024-06-14 18:24] LABS: PSA, Screening 0.3 ng/mL (<=2.5)
== END 2024-06-14 13:18 | disposition home or self-care (01) ==
LOC: LBO 13:17
PROVIDERS: PCP Nurse Practitioner; Visit Provider Nurse Practitioner Gerontology
DX: R39.9 Unspecified symptoms and signs involving the genitourinary system (principal)
CPT/HCPCS: 36415; 84153

== ENCOUNTER 2024-06-21 11:37 | Outpatient (CLI) | payer BC, SELFPAY ==
[2024-06-21 10:21] LABS: Abs Immature Grans 0.06 10^3/uL (0.0-0.06); Absolute Basophil Count 0.07 10^3/uL (0.0-0.2); Absolute Eosinophil Count 0.02 10^3/uL (0.0-0.7); Absolute Lymphocyte Count 2.31 10^3/uL (1.2-3.4); Absolute Monocyte Count 0.66 10^3/uL (0.1-0.8); Absolute Neutrophil Count 7.55 10^3/uL (1.2-6.7); Basophils % 0.7 %; Eosinophils % 0.2 %; HCT 39.3 % (40.0-50.0); HGB 13.1 g/dL (13.5-17.5); Immature Grans % 0.6 %; Lymphocytes % 21.6 %; MCH 33.6 pg (27.0-33.0); MCHC 33.3 % (32.0-36.0); MCV 101 fL (80-95); MPV 8.8 fL (8.0-11.0); Monocytes % 6.2 %; Neutrophils % 70.7 %; Platelet Count 325 10^3/uL (130-400); RDW 13.2 % (11.8-14.1); RDW-SD 49.4 fL; WBC 10.67 10^3/uL (4.4-10.8)
[2024-06-21 10:45] LABS: ALT 29 U/L (16-63); AST 24 U/L (15-37); Albumin 3.9 g/dL (3.4-5.0); Alkaline Phosphatase 75 U/L (46-116); Anion Gap 7.1 mmol/L (3-11); BUN 14 mg/dL (7-18); Bilirubin, Total 0.17 mg/dL (0.2-1.0); CO2 28.9 mmol/L (21.0-32.0); CREATININE 1.7 mg/dL (0.70-1.30); Chloride 105 mmol/L (98-107); Estimated GFR 48.81 (mL/min/1.73m2); FREE T4 0.86 ng/dL (0.76-1.46); Glucose 85 mg/dL (74-106); Potassium 4.4 mmol/L (3.5-5.1); Sodium 141 mmol/L (136-145); TSH 0.44 uIU/mL (0.36-3.74); Total Protein 7.5 g/dL (6.4-8.2)
== END 2024-06-21 11:38 | disposition home or self-care (01) ==
LOC: LBO 11:37
PROVIDERS: PCP Nurse Practitioner; Visit Provider Nurse Practitioner Family
DX: C34.92 Malignant neoplasm of unspecified part of left bronchus or lung (principal); Z79.899 Other long term (current) drug therapy
CPT/HCPCS: 36415; 80053; 83735; 84439; 84443; 85025

== ENCOUNTER 2024-07-12 04:25 | Outpatient (CLI) | payer BC, SELFPAY ==
[2024-07-12 10:27] LABS: Abs Immature Grans 0.05 10^3/uL (0.0-0.06); Absolute Basophil Count 0.09 10^3/uL (0.0-0.2); Absolute Eosinophil Count 0.08 10^3/uL (0.0-0.7); Absolute Lymphocyte Count 2.87 10^3/uL (1.2-3.4); Absolute Monocyte Count 0.78 10^3/uL (0.1-0.8); Absolute Neutrophil Count 6.88 10^3/uL (1.2-6.7); Basophils % 0.8 %; Eosinophils % 0.7 %; HCT 34.3 % (40.0-50.0); HGB 11.5 g/dL (13.5-17.5); Immature Grans % 0.5 %; Lymphocytes % 26.7 %; MCH 33.7 pg (27.0-33.0); MCHC 33.5 % (32.0-36.0); MCV 101 fL (80-95); MPV 9.1 fL (8.0-11.0); Monocytes % 7.3 %; Platelet Count 385 10^3/uL (130-400); RBC 3.41 10^6/uL (4.36-5.78); RDW 13.5 % (11.8-14.1); RDW-SD 50.1 fL; WBC 10.75 10^3/uL (4.4-10.8)
[2024-07-12 10:54] LABS: ALT 27 U/L (16-63); AST 20 U/L (15-37); Albumin 3.5 g/dL (3.4-5.0); Alkaline Phosphatase 63 U/L (46-116); Anion Gap 5.9 mmol/L (3-11); BUN 15 mg/dL (7-18); Bilirubin, Total 0.25 mg/dL (0.2-1.0); CO2 31.1 mmol/L (21.0-32.0); CREATININE 1.4 mg/dL (0.70-1.30); Chloride 106 mmol/L (98-107); Estimated GFR 61.61 (mL/min/1.73m2); FREE T4 0.94 ng/dL (0.76-1.46); Glucose 93 mg/dL (74-106); Magnesium 1.9 mg/dL (1.8-2.4); Potassium 3.9 mmol/L (3.5-5.1); Sodium 143 mmol/L (136-145); TSH 0.19 uIU/mL (0.36-3.74); Total Protein 7.1 g/dL (6.4-8.2)
== END 2024-07-12 04:26 | disposition home or self-care (01) ==
PROVIDERS: Internal Medicine Medical Oncology; PCP Nurse Practitioner; Visit Provider Nurse Practitioner Family
DX: Z79.899 Other long term (current) drug therapy (principal); C34.92 Malignant neoplasm of unspecified part of left bronchus or lung
CPT/HCPCS: 36415; 80053; 83735; 84439; 84443; 85025

== ENCOUNTER 2024-08-02 01:15 | Outpatient (CLI) | payer BC, SELFPAY ==
[2024-08-02 11:00] LABS: Abs Immature Grans 0.03 10^3/uL (0.0-0.06); Absolute Basophil Count 0.08 10^3/uL (0.0-0.2); Absolute Eosinophil Count 0.07 10^3/uL (0.0-0.7); Absolute Lymphocyte Count 2.05 10^3/uL (1.2-3.4); Absolute Monocyte Count 0.89 10^3/uL (0.1-0.8); Absolute Neutrophil Count 5.14 10^3/uL (1.2-6.7); Eosinophils % 0.8 %; HCT 35.2 % (40.0-50.0); HGB 11.8 g/dL (13.5-17.5); Immature Grans % 0.4 %; Lymphocytes % 24.8 %; MCH 34.2 pg (27.0-33.0); MCHC 33.5 % (32.0-36.0); MCV 102 fL (80-95); Monocytes % 10.8 %; Neutrophils % 62.2 %; Platelet Count 288 10^3/uL (130-400); RBC 3.45 10^6/uL (4.36-5.78); RDW 13.2 % (11.8-14.1); RDW-SD 49.6 fL; WBC 8.26 10^3/uL (4.4-10.8)
[2024-08-02 11:34] LABS: ALT 30 U/L (16-63); AST 17 U/L (15-37); Albumin 3.5 g/dL (3.4-5.0); Alkaline Phosphatase 69 U/L (46-116); Anion Gap 8.1 mmol/L (3-11); BUN 15 mg/dL (7-18); Bilirubin, Total 0.28 mg/dL (0.2-1.0); CO2 27.9 mmol/L (21.0-32.0); CREATININE 1.6 mg/dL (0.70-1.30); Calcium 9.4 mg/dL (8.5-10.1); Chloride 105 mmol/L (98-107); Estimated GFR 52.49 (mL/min/1.73m2); FREE T4 0.98 ng/dL (0.76-1.46); Glucose 97 mg/dL (74-106); Magnesium 1.7 mg/dL (1.8-2.4); Potassium 3.8 mmol/L (3.5-5.1); Sodium 141 mmol/L (136-145); TSH 0.53 uIU/mL (0.36-3.74); Total Protein 7.3 g/dL (6.4-8.2)
== END 2024-08-02 01:16 | disposition home or self-care (01) ==
PROVIDERS: Nurse Practitioner Family; PCP Nurse Practitioner; Visit Provider Internal Medicine Medical Oncology
DX: C34.92 Malignant neoplasm of unspecified part of left bronchus or lung (principal); Z79.899 Other long term (current) drug therapy
CPT/HCPCS: 36415; 80053; 83735; 84439; 84443; 85025

== ENCOUNTER 2024-08-23 02:58 | Outpatient (CLI) | payer BC, SELFPAY ==
[2024-08-23 09:45] LABS: Abs Immature Grans 0.04 10^3/uL (0.0-0.06); Absolute Basophil Count 0.05 10^3/uL (0.0-0.2); Absolute Eosinophil Count 0.03 10^3/uL (0.0-0.7); Absolute Lymphocyte Count 2.94 10^3/uL (1.2-3.4); Absolute Monocyte Count 0.76 10^3/uL (0.1-0.8); Absolute Neutrophil Count 5.85 10^3/uL (1.2-6.7); Basophils % 0.5 %; Eosinophils % 0.3 %; HCT 36.5 % (40.0-50.0); HGB 12.1 g/dL (13.5-17.5); Immature Grans % 0.4 %; Lymphocytes % 30.4 %; MCH 34.1 pg (27.0-33.0); MCHC 33.2 % (32.0-36.0); MCV 103 fL (80-95); MPV 8.5 fL (8.0-11.0); Monocytes % 7.9 %; Neutrophils % 60.5 %; Platelet Count 359 10^3/uL (130-400); RBC 3.55 10^6/uL (4.36-5.78); RDW 12.8 % (11.8-14.1); RDW-SD 48.8 fL; WBC 9.67 10^3/uL (4.4-10.8)
[2024-08-23 10:11] LABS: ALT 29 U/L (16-63); AST 17 U/L (15-37); Albumin 3.7 g/dL (3.4-5.0); Alkaline Phosphatase 71 U/L (46-116); Anion Gap 8.9 mmol/L (3-11); BUN 20 mg/dL (7-18); Bilirubin, Total 0.38 mg/dL (0.2-1.0); CO2 26.1 mmol/L (21.0-32.0); CREATININE 1.7 mg/dL (0.70-1.30); Calcium 9.7 mg/dL (8.5-10.1); Chloride 103 mmol/L (98-107); Estimated GFR 48.51 (mL/min/1.73m2); FREE T4 1.19 ng/dL (0.76-1.46); Glucose 96 mg/dL (74-106); Magnesium 1.8 mg/dL (1.8-2.4); Potassium 4.2 mmol/L (3.5-5.1); Sodium 138 mmol/L (136-145); TSH 0.21 uIU/mL (0.36-3.74); Total Protein 7.6 g/dL (6.4-8.2)
== END 2024-08-23 02:59 | disposition home or self-care (01) ==
LOC: LBO 02:58
PROVIDERS: Nurse Practitioner Family; PCP Nurse Practitioner; Visit Provider Internal Medicine Medical Oncology
DX: Z79.899 Other long term (current) drug therapy (principal); C34.92 Malignant neoplasm of unspecified part of left bronchus or lung
CPT/HCPCS: 36415; 80053; 83735; 84439; 84443; 85025

== ENCOUNTER 2024-09-13 01:59 | Outpatient (CLI) | payer BC, SELFPAY ==
[2024-09-13 09:56] LABS: Abs Immature Grans 0.04 10^3/uL (0.0-0.06); Absolute Basophil Count 0.08 10^3/uL (0.0-0.2); Absolute Eosinophil Count 0.11 10^3/uL (0.0-0.7); Absolute Monocyte Count 0.93 10^3/uL (0.1-0.8); Basophils % 0.7 %; HCT 37.7 % (40.0-50.0); HGB 12.8 g/dL (13.5-17.5); Immature Grans % 0.4 %; Lymphocytes % 23.6 %; MCH 34.2 pg (27.0-33.0); MCV 101 fL (80-95); MPV 9.1 fL (8.0-11.0); Monocytes % 8.6 %; Neutrophils % 65.7 %; Platelet Count 313 10^3/uL (130-400); RBC 3.74 10^6/uL (4.36-5.78); RDW 12.5 % (11.8-14.1); RDW-SD 46.6 fL; WBC 10.87 10^3/uL (4.4-10.8)
[2024-09-13 09:57] LABS: Absolute Lymphocyte Count 2.57 10^3/uL (1.2-3.4); Absolute Neutrophil Count 7.14 10^3/uL (1.2-6.7)
[2024-09-13 10:23] LABS: ALT 26 U/L (16-63); AST 19 U/L (15-37); Albumin 3.7 g/dL (3.4-5.0); Alkaline Phosphatase 68 U/L (46-116); Anion Gap 5.8 mmol/L (3-11); BUN 16 mg/dL (7-18); Bilirubin, Total 0.3 mg/dL (0.2-1.0); CO2 30.2 mmol/L (21.0-32.0); CREATININE 1.4 mg/dL (0.70-1.30); Calcium 9.6 mg/dL (8.5-10.1); Chloride 103 mmol/L (98-107); Estimated GFR 61.23 (mL/min/1.73m2); Glucose 97 mg/dL (74-106); Magnesium 1.7 mg/dL; Sodium 139 mmol/L (136-145); TSH 1.02 uIU/mL (0.36-3.74); Total Protein 7.4 g/dL (6.4-8.2)
[2024-09-13 17:16] LABS: T4, Free 1.2 ng/dL (0.8-2.2)
== END 2024-09-13 02:00 | disposition home or self-care (01) ==
PROVIDERS: PCP Nurse Practitioner; Visit Provider Nurse Practitioner Family
DX: Z79.899 Other long term (current) drug therapy (principal); C34.92 Malignant neoplasm of unspecified part of left bronchus or lung
CPT/HCPCS: 36415; 80053; 83735; 84439; 84443; 85025

== ENCOUNTER 2024-09-30 00:50 | Outpatient (CLI) | payer BC, SELFPAY ==
--- NOTE | 2024-09-30 14:30 | DI.RAD_ITS ---
Exam(s) RF JOINT INJ. FLUORO GUID RAD EXAM: RF JOINT INJ. FLUORO GUID RAD CLINICAL HISTORY: L SHOULDER PAIN, M19.012. The Patient has had persistent left shoulder pain. Non invasive measures have been tried. To serve as both diagnostic and therapeutic, an injection under f luoroscopy was recommended. The risks of the procedure were discussed with their Orthopedic provider and the patient elected to proceed. TECHNIQUE: 2D and realtime digital imaging was performed. CONTRAST MATERIAL: Water soluble contrast was utilized. COMPARISON: No exams were available for comparison FINDINGS: The Patient was greeted in the fluoroscopy room. The correct side was identified and the consent was reviewed with the patient and was signed. The patient was properly positioned on the fluoroscopy ta ble. The left shoulderwas then prepped and draped. The left shoulder injection starting point was i dentified by the bony landmarks and fluoroscopy. The skin and soft tissue in the tract of the inject ion was anesthetized with 1% Bupivacaine. A spinal needle was then inserted into the glenohumeral willem int joint at the level of the left shoulder under fluoroscopic guidance. A small amount of Omnipaque solution was injected to confirm intraarticular placement. Once confirmed, the left shoulder was in jected with 5cc of a solution containing 0.5% Bupivacaiine and 40 mg of Depo-Medrol. A bandaid was p laced on the injection site. The patient tolerated the procedure well and left the department in goo d condition. IMPRESSION: Successful left shoulder injection. RADIATION DOSE DELIVERED: Ka,r=2.08 mGy
--- NOTE | 2024-09-30 14:30 | DI.RAD_ITS ---
Exam(s) RF JOINT INJ. FLUORO GUID RAD EXAM: RF JOINT INJ. FLUORO GUID RAD CLINICAL HISTORY: R SHOULDER PAIN, M19.011. The Patient has had persistent right shoulder pain. No ninvasive measures have been tried. To serve as both diagnostic and therapeutic, an injection under fluoroscopy was recommended. The risks of the procedure were discussed with their Orthopedic provide r and the patient elected to proceed. TECHNIQUE: 2D and realtime digital imaging was performed. CONTRAST MATERIAL: Water soluble contrast was utilized. COMPARISON: No exams were available for comparison FINDINGS: The Patient was greeted in the fluoroscopy room. The correct side was identified and the consent was reviewed with the patient and was signed. The patient was properly positioned on the fluoroscopy ta ble. The right shoulderwas then prepped and draped. The right shoulder injection starting point was identified by the bony landmarks and fluoroscopy. The skin and soft tissue in the tract of the inje ction was anesthetized with 1% Bupivacaine. A spinal needle was then inserted into the glenohumeral joint joint at the level of the right shoulder under fluoroscopic guidance. A small amount of Omnipa que solution was injected to confirm intraarticular placement. Once confirmed, the right shoulder wa s injected with 5cc of a solution containing 0.5% Bupivacaiine and 40 mg of Depo-Medrol. A bandaid w as placed on the injection site. The patient tolerated the procedure well and left the department in good condition. IMPRESSION: Successful right shoulder injection. RADIATION DOSE DELIVERED: Kavyar=2.45 mGy
[2024-09-30] MEDS: Omnipaque 300 MG/ML 10 ML BTL IJ ×2 (15:17→15:20)
[2024-09-30] MEDS: Normal Saline - Diluent 50 ML VIAL IM ×2 (15:17→15:20)
[2024-09-30] MEDS: Bupivacaine 0.5% Pres-Free 10 ML VIAL IJ ×2 (15:18→15:21)
[2024-09-30] MEDS: methylPREDNISolone ACETATE 40 MG/ML VIAL IM ×2 (15:19→15:21)
== END 2024-09-30 01:10 ==
LOC: DI 00:50
PROVIDERS: PCP Nurse Practitioner; Visit Provider Student in an Organized Health Care Education/Training Program
DX: M19.011 Primary osteoarthritis, right shoulder (principal); M19.012 Primary osteoarthritis, left shoulder
CPT/HCPCS: 20610; 76000; 77002; J0665; J1010

== ENCOUNTER 2024-10-04 03:25 | Outpatient (CLI) | payer BC, SELFPAY ==
[2024-10-04 10:14] LABS: Abs Immature Grans 0.17 10^3/uL (0.0-0.06); Basophils % 0.7 %; Eosinophils % 0.7 %; HCT 39.9 % (40.0-50.0); HGB 13.4 g/dL (13.5-17.5); Immature Grans % 1.1 %; Lymphocytes % 34.3 %; MCH 33.8 pg (27.0-33.0); MCHC 33.6 % (32.0-36.0); MCV 101 fL (80-95); MPV 9.1 fL (8.0-11.0); Monocytes % 8.4 %; Neutrophils % 54.8 %; Platelet Count 408 10^3/uL (130-400); RBC 3.96 10^6/uL (4.36-5.78); RDW 12.6 % (11.8-14.1); RDW-SD 47.2 fL; WBC 14.85 10^3/uL (4.4-10.8)
[2024-10-04 10:17] LABS: Absolute Lymphocyte Count 5.09 10^3/uL (1.2-3.4); Absolute Monocyte Count 1.25 10^3/uL (0.1-0.8); Absolute Neutrophil Count 8.14 10^3/uL (1.2-6.7)
[2024-10-04 10:27] LABS: Diff Comment Diff Reviewed; RBC Morphology Normal
[2024-10-04 11:06] LABS: ALT 34 U/L (16-63); AST 18 U/L (15-37); Albumin 3.8 g/dL (3.4-5.0); Alkaline Phosphatase 69 U/L (46-116); Anion Gap 4.1 mmol/L (3-11); BUN 22 mg/dL (7-18); Bilirubin, Total 0.2 mg/dL (0.2-1.0); CO2 31.9 mmol/L (21.0-32.0); CREATININE 1.5 mg/dL (0.70-1.30); Calcium 9.8 mg/dL (8.5-10.1); Chloride 106 mmol/L (98-107); Estimated GFR 56.37 (mL/min/1.73m2); FREE T4 0.97 ng/dL (0.76-1.46); Glucose 87 mg/dL (74-106); Magnesium 1.8 mg/dL; Potassium 4.4 mmol/L (3.5-5.1); Sodium 142 mmol/L (136-145); TSH 0.19 uIU/mL (0.36-3.74); Total Protein 7.1 g/dL (6.4-8.2)
== END 2024-10-04 03:26 | disposition home or self-care (01) ==
LOC: LBO 03:25
PROVIDERS: PCP Nurse Practitioner; Visit Provider Nurse Practitioner Family
DX: C34.92 Malignant neoplasm of unspecified part of left bronchus or lung (principal); Z79.899 Other long term (current) drug therapy
CPT/HCPCS: 36415; 80053; 83735; 84439; 84443; 85025

== ENCOUNTER 2024-10-25 00:28 | Outpatient (CLI) | payer BC, SELFPAY ==
[2024-10-25 10:09] LABS: Abs Immature Grans 0.05 10^3/uL (0.0-0.06); Absolute Basophil Count 0.06 10^3/uL (0.0-0.2); Absolute Eosinophil Count 0.07 10^3/uL (0.0-0.7); Absolute Lymphocyte Count 2.91 10^3/uL (1.2-3.4); Absolute Monocyte Count 0.77 10^3/uL (0.1-0.8); Basophils % 0.5 %; Eosinophils % 0.6 %; HCT 38.1 % (40.0-50.0); HGB 12.8 g/dL (13.5-17.5); Immature Grans % 0.4 %; Lymphocytes % 25.1 %; MCH 34.1 pg (27.0-33.0); MCHC 33.6 % (32.0-36.0); MCV 102 fL (80-95); MPV 9.1 fL (8.0-11.0); Monocytes % 6.6 %; Neutrophils % 66.8 %; Platelet Count 317 10^3/uL (130-400); RBC 3.75 10^6/uL (4.36-5.78); RDW-SD 48.6 fL; WBC 11.61 10^3/uL (4.4-10.8)
[2024-10-25 10:11] LABS: Absolute Neutrophil Count 7.76 10^3/uL (1.2-6.7)
[2024-10-25 10:37] LABS: ALT 33 U/L (16-63); AST 23 U/L (15-37); Albumin 3.7 g/dL (3.4-5.0); Alkaline Phosphatase 70 U/L (46-116); Anion Gap 9.5 mmol/L (3-11); BUN 13 mg/dL (7-18); Bilirubin, Total 0.2 mg/dL (0.2-1.0); CO2 27.5 mmol/L (21.0-32.0); CREATININE 1.5 mg/dL (0.70-1.30); Calcium 9.8 mg/dL (8.5-10.1); Chloride 105 mmol/L (98-107); Estimated GFR 56.37 (mL/min/1.73m2); FREE T4 0.95 ng/dL (0.76-1.46); Glucose 102 mg/dL (74-106); Magnesium 1.9 mg/dL (1.8-2.4); Potassium 3.8 mmol/L (3.5-5.1); Sodium 142 mmol/L (136-145); Total Protein 7.4 g/dL (6.4-8.2)
== END 2024-10-25 00:29 | disposition home or self-care (01) ==
LOC: LBO 00:29
PROVIDERS: PCP Nurse Practitioner; Visit Provider Nurse Practitioner Family
DX: C34.92 Malignant neoplasm of unspecified part of left bronchus or lung (principal); Z79.899 Other long term (current) drug therapy
CPT/HCPCS: 36415; 80053; 83735; 84439; 84443; 85025

== ENCOUNTER 2024-11-15 03:50 | Outpatient (CLI) | payer BC, SELFPAY ==
[2024-11-15 10:49] LABS: Abs Immature Grans 0.06 10^3/uL (0.0-0.06); Absolute Basophil Count 0.05 10^3/uL (0.0-0.2); Absolute Monocyte Count 0.87 10^3/uL (0.1-0.8); Basophils % 0.4 %; Eosinophils % 0.1 %; HCT 38.1 % (40.0-50.0); HGB 12.9 g/dL (13.5-17.5); Immature Grans % 0.4 %; Lymphocytes % 19.1 %; MCH 33.9 pg (27.0-33.0); MCHC 33.9 % (32.0-36.0); MCV 100 fL (80-95); MPV 9.3 fL (8.0-11.0); Monocytes % 6.4 %; Neutrophils % 73.6 %; Platelet Count 313 10^3/uL (130-400); RBC 3.81 10^6/uL (4.36-5.78); RDW 12.7 % (11.8-14.1); RDW-SD 47.1 fL; WBC 13.59 10^3/uL (4.4-10.8)
[2024-11-15 10:50] LABS: Absolute Eosinophil Count 0.01 10^3/uL (0.0-0.7)
[2024-11-15 11:14] LABS: ALT 29 U/L (16-63); AST 19 U/L (15-37); Albumin 3.7 g/dL (3.4-5.0); Alkaline Phosphatase 68 U/L (46-116); Anion Gap 9.7 mmol/L (3-11); BUN 20 mg/dL (7-18); Bilirubin, Total 0.2 mg/dL (0.2-1.0); CO2 28.3 mmol/L (21.0-32.0); CREATININE 1.5 mg/dL (0.70-1.30); Calcium 9.6 mg/dL (8.5-10.1); Chloride 105 mmol/L (98-107); Estimated GFR 56.37 (mL/min/1.73m2); FREE T4 1.16 ng/dL (0.76-1.46); Glucose 104 mg/dL (74-106); Potassium 3.8 mmol/L (3.5-5.1); Sodium 143 mmol/L (136-145); TSH 0.03 uIU/mL (0.36-3.74); Total Protein 7.3 g/dL (6.4-8.2)
== END 2024-11-15 03:51 | disposition home or self-care (01) ==
LOC: LBO 03:50
PROVIDERS: PCP Nurse Practitioner; Visit Provider Nurse Practitioner Family
DX: C34.92 Malignant neoplasm of unspecified part of left bronchus or lung (principal); Z79.899 Other long term (current) drug therapy
CPT/HCPCS: 36415; 80053; 83735; 84439; 84443; 85025

== ENCOUNTER 2024-12-06 12:59 | Outpatient (CLI) | payer BC, SELFPAY ==
[2024-12-06 10:33] LABS: Abs Immature Grans 0.04 10^3/uL (0.0-0.06); Absolute Basophil Count 0.08 10^3/uL (0.0-0.2); Absolute Eosinophil Count 0.06 10^3/uL (0.0-0.7); Basophils % 0.6 %; Eosinophils % 0.5 %; HCT 39.4 % (40.0-50.0); HGB 13.4 g/dL (13.5-17.5); Immature Grans % 0.3 %; Lymphocytes % 23.2 %; MCH 33.4 pg (27.0-33.0); MCV 98 fL (80-95); MPV 9.2 fL (8.0-11.0); Monocytes % 4.6 %; Neutrophils % 70.8 %; Platelet Count 359 10^3/uL (130-400); RBC 4.01 10^6/uL (4.36-5.78); RDW 12.3 % (11.8-14.1); RDW-SD 44.7 fL; WBC 12.69 10^3/uL (4.4-10.8)
[2024-12-06 10:35] LABS: Absolute Lymphocyte Count 2.94 10^3/uL (1.2-3.4); Absolute Monocyte Count 0.58 10^3/uL (0.1-0.8); Absolute Neutrophil Count 8.98 10^3/uL (1.2-6.7)
[2024-12-06 10:59] LABS: ALT 25 U/L (16-63); AST 22 U/L (15-37); Albumin 3.9 g/dL (3.4-5.0); Alkaline Phosphatase 66 U/L (46-116); Anion Gap 9.8 mmol/L (3-11); BUN 11 mg/dL (7-18); Bilirubin, Total 0.3 mg/dL (0.2-1.0); CO2 28.2 mmol/L (21.0-32.0); CREATININE 1.5 mg/dL (0.70-1.30); Calcium 9.4 mg/dL (8.5-10.1); Chloride 103 mmol/L (98-107); Estimated GFR 56.37 (mL/min/1.73m2); FREE T4 0.92 ng/dL (0.76-1.46); Glucose 101 mg/dL (74-106); Magnesium 1.8 mg/dL (1.8-2.4); Potassium 3.9 mmol/L (3.5-5.1); Sodium 141 mmol/L (136-145); TSH 0.61 uIU/mL (0.36-3.74); Total Protein 7.4 g/dL (6.4-8.2)
== END 2024-12-06 13:00 | disposition home or self-care (01) ==
LOC: LBO 13:00
PROVIDERS: PCP Nurse Practitioner; Visit Provider Nurse Practitioner Family
DX: C34.92 Malignant neoplasm of unspecified part of left bronchus or lung (principal); Z79.899 Other long term (current) drug therapy
CPT/HCPCS: 36415; 80053; 83735; 84439; 84443; 85025

== ENCOUNTER 2024-12-27 02:03 | Outpatient (CLI) | payer BC, SELFPAY ==
[2024-12-27 10:27] LABS: Abs Immature Grans 0.03 10^3/uL (0.0-0.06); Absolute Basophil Count 0.06 10^3/uL (0.0-0.2); Absolute Eosinophil Count 0.06 10^3/uL (0.0-0.7); Absolute Lymphocyte Count 2.88 10^3/uL (1.2-3.4); Absolute Monocyte Count 0.82 10^3/uL (0.1-0.8); Absolute Neutrophil Count 6.14 10^3/uL (1.2-6.7); Basophils % 0.6 %; Eosinophils % 0.6 %; HGB 12.3 g/dL (13.5-17.5); Immature Grans % 0.3 %; Lymphocytes % 28.8 %; MCH 33.8 pg (27.0-33.0); MCHC 34.2 % (32.0-36.0); MCV 99 fL (80-95); MPV 9.2 fL (8.0-11.0); Monocytes % 8.2 %; Neutrophils % 61.5 %; Platelet Count 278 10^3/uL (130-400); RBC 3.64 10^6/uL (4.36-5.78); RDW 12.8 % (11.8-14.1); RDW-SD 46.2 fL; WBC 9.99 10^3/uL (4.4-10.8)
[2024-12-27 11:15] LABS: ALT 32 U/L (16-63); AST 28 U/L (15-37); Albumin 3.8 g/dL (3.4-5.0); Alkaline Phosphatase 62 U/L (46-116); BUN 12 mg/dL (7-18); Bilirubin, Total 0.6 mg/dL (0.2-1.0); CREATININE 1.7 mg/dL (0.70-1.30); Calcium 9.4 mg/dL (8.5-10.1); Chloride 101 mmol/L (98-107); Estimated GFR 48.51 (mL/min/1.73m2); FREE T4 1.77 ng/dL (0.76-1.46); Glucose 75 mg/dL (74-106); Magnesium 1.8 mg/dL (1.8-2.4); Sodium 137 mmol/L (136-145); TSH 0.05 uIU/mL (0.36-3.74); Total Protein 7.1 g/dL (6.4-8.2)
== END 2024-12-27 02:04 | disposition home or self-care (01) ==
LOC: LBO 02:04
PROVIDERS: PCP Nurse Practitioner; Visit Provider Nurse Practitioner Family
DX: Z79.899 Other long term (current) drug therapy (principal); C34.92 Malignant neoplasm of unspecified part of left bronchus or lung
CPT/HCPCS: 36415; 80053; 83735; 84439; 84443; 85025

== ENCOUNTER 2025-01-13 00:45 | Outpatient (CLI) | payer BC, SELFPAY ==
--- NOTE | 2025-01-13 15:02 | DI.RAD_ITS ---
Exam(s) RF JOINT INJ. FLUORO GUID RAD EXAM: RF JOINT INJ. FLUORO GUID RAD CLINICAL HISTORY: LT SHOULDER PAIN, ARTHRITIS LT GLENOHUMERAL JOINT,M19.012, FLUORO. The Patient has had persistent left shoulder pain. Noninvasive measures have been tried. To serve as both diagnostic and therapeutic, an injection under fluoroscopy was recommended. The risks of the procedure were discussed with their Orthopedic provider and the patient elected to proceed. TECHNIQUE: 2D and realtime digital imaging was performed. CONTRAST MATERIAL: Water soluble contrast was utilized. COMPARISON: No exams were available for comparison FINDINGS: The Patient was greeted in the fluoroscopy room. The correct side was identified and the consent was reviewed with the patient and was signed. The patient was properly positioned on the fluoroscopy table. The left shoulderwas then prepped and draped. The left shoulder injection starting point was i dentified by the bony landmarks and fluoroscopy. The skin and soft tissue in the tract of the injection was anesthetized with 1% Bupivacaine. A spinal needle was then inserted into the left shoulder joint at the level of the glenohumeral joint under fluoroscopic guidance. A small amount of Omnipaque solution was injected to confirm intraarticular placement. Once confirmed, the left shoulder was injected with 5cc of a solution containing 0.5% Bupivacaiine and 40 mg of Depo-Medrol. A bandaid was placed on the injection site. The patient tolerated the procedure well and left the department in good condition. IMPRESSION: Successful left shoulder injection. RADIATION DOSE DELIVERED: Ka,r=2.3 mGy
--- NOTE | 2025-01-13 15:09 | DI.RAD_ITS ---
Exam(s) RF JOINT INJ. FLUORO GUID RAD EXAM: RF JOINT INJ. FLUORO GUID RAD CLINICAL HISTORY: RT SHOULDER PAIN,ARTHRITIS RT GLENOHUMERAL JOINT,M19.011,FLUORO GUIDED. The Patient has had persistent right shoulder pain. Noninvasive measures have been tried. To serve as both diagnostic and therapeutic, an injection under fluoroscopy was recommended. The risks of the procedure were discussed with their Orthopedic provider and the patient elected to proceed. TECHNIQUE: 2D and realtime digital imaging was performed. CONTRAST MATERIAL: Water soluble contrast was utilized. COMPARISON: No exams were available for comparison FINDINGS: The Patient was greeted in the fluoroscopy room. The correct side was identified and the consent was reviewed with the patient and was signed. The patient was properly positioned on the fluoroscopy table. The right shoulderwas then prepped and draped. The right shoulder injection starting point was identified by the bony landmarks and fluoroscopy. The skin and soft tissue in the tract of the injection was anesthetized with 1% Bupivacaine. A spinal needle was then inserted into the right shoulder joint at the level of the glenohumeral joint under fluoroscopic guidance. A small amount of Omnipaque solution was injected to confirm intraarticular placement. Once confirmed, the right shoulder was injected with 5cc of a solution containing 0.5% Bupivacaiine and 40 mg of Depo-Medrol. A bandaid was placed on the injection site. The patient tolerated the procedure well and left the department in good condition. IMPRESSION: Successful right shoulder injection. RADIATION DOSE DELIVERED: Ka,r=4.35 mGy
[2025-01-13] MEDS: methylPREDNISolone ACETATE 40 MG/ML VIAL IM (15:12)
[2025-01-13] MEDS: Omnipaque 300 MG/ML 10 ML BTL IJ (15:12)
[2025-01-13] MEDS: Bupivacaine 0.5% Pres-Free 10 ML VIAL IJ (15:13)
== END 2025-01-13 01:05 ==
PROVIDERS: PCP Family Medicine; Visit Provider Student in an Organized Health Care Education/Training Program
DX: M19.011 Primary osteoarthritis, right shoulder (principal); M19.012 Primary osteoarthritis, left shoulder; M25.511 Pain in right shoulder; M25.512 Pain in left shoulder
CPT/HCPCS: 20610; 77002; J0665; J1010

== ENCOUNTER 2025-01-17 01:32 | Outpatient (CLI) | payer BC, SELFPAY ==
[2025-01-17 11:14] LABS: Abs Immature Grans 0.33 10^3/uL (0.0-0.06); HCT 41.4 % (40.0-50.0); HGB 14.0 g/dL (13.5-17.5); Immature Grans % 1.9 %; MCH 33.3 pg (27.0-33.0); MCHC 33.8 % (32.0-36.0); MCV 98 fL (80-95); MPV 9.8 fL (8.0-11.0); Platelet Count 271 10^3/uL (130-400); RBC 4.21 10^6/uL (4.36-5.78); RDW 11.8 % (11.8-14.1); RDW-SD 42.6 fL; WBC 17.55 10^3/uL (4.4-10.8)
[2025-01-17 11:48] LABS: ALT 35 U/L (16-63); AST 18 U/L (15-37); Albumin 3.8 g/dL (3.4-5.0); Alkaline Phosphatase 73 U/L (46-116); Anion Gap 5.6 mmol/L (3-11); BUN 15 mg/dL (7-18); Bilirubin, Total 0.2 mg/dL (0.2-1.0); CO2 29.4 mmol/L (21.0-32.0); Calcium 9.7 mg/dL (8.5-10.1); Chloride 104 mmol/L (98-107); Estimated GFR 66.93 (mL/min/1.73m2); Glucose 118 mg/dL (74-106); Magnesium 1.8 mg/dL (1.8-2.4); Potassium 3.4 mmol/L (3.5-5.1); Sodium 139 mmol/L (136-145); TSH 0.02 uIU/mL (0.36-3.74); Total Protein 7.2 g/dL (6.4-8.2)
== END 2025-01-17 01:33 | disposition home or self-care (01) ==
LOC: LBO 01:32
PROVIDERS: PCP Nurse Practitioner; Visit Provider Nurse Practitioner Family
DX: Z79.899 Other long term (current) drug therapy (principal); C34.92 Malignant neoplasm of unspecified part of left bronchus or lung
CPT/HCPCS: 36415; 80053; 83735; 84439; 84443; 85025

== ENCOUNTER 2025-02-08 03:30 | Outpatient (CLI) | payer BC, SELFPAY ==
[2025-02-08 11:08] LABS: Abs Immature Grans 0.02 10^3/uL (0.0-0.06); HCT 38.6 % (40.0-50.0); HGB 13.2 g/dL (13.5-17.5); Immature Grans % 0.2 %; MCH 33.8 pg (27.0-33.0); MCHC 34.2 % (32.0-36.0); MCV 99 fL (80-95); MPV 9.1 fL (8.0-11.0); Platelet Count 334 10^3/uL (130-400); RBC 3.91 10^6/uL (4.36-5.78); RDW 12.5 % (11.8-14.1); RDW-SD 44.9 fL; WBC 9.00 10^3/uL (4.4-10.8)
[2025-02-08 11:41] LABS: ALT 26 U/L (16-63); AST 17 U/L (15-37); Albumin 3.7 g/dL (3.4-5.0); Alkaline Phosphatase 58 U/L (46-116); Anion Gap 5.7 mmol/L (3-11); BUN 24 mg/dL (7-18); Bilirubin, Total 0.2 mg/dL (0.2-1.0); CO2 28.3 mmol/L (21.0-32.0); Calcium 9.4 mg/dL (8.5-10.1); Chloride 108 mmol/L (98-107); Estimated GFR 52.17 (mL/min/1.73m2); Glucose 104 mg/dL (74-106); Magnesium 2.1 mg/dL (1.8-2.4); Potassium 4.5 mmol/L (3.5-5.1); Sodium 142 mmol/L (136-145); TSH 0.04 uIU/mL (0.36-3.74); Total Protein 6.9 g/dL (6.4-8.2)
== END 2025-02-08 03:31 | disposition home or self-care (01) ==
LOC: LBO 03:30
PROVIDERS: PCP Nurse Practitioner; Visit Provider Nurse Practitioner Family
DX: C34.92 Malignant neoplasm of unspecified part of left bronchus or lung (principal); Z79.899 Other long term (current) drug therapy
CPT/HCPCS: 36415; 80053; 83735; 84439; 84443; 85025

== ENCOUNTER 2025-02-08 12:46 | Outpatient (CLI) | payer BC, SELFPAY ==
--- NOTE | 2025-02-08 07:45 | DI.MRI_ITS ---
Exam(s) MR LUMBAR SPINE WO EXAM: MR LUMBAR SPINE WO CLINICAL HISTORY: CHRONIC LOW BACK PAIN Not improving in 4 months,M54.50,G89.29. TECHNIQUE: Multiplanar multisequence MRI of the Lumbar spine was performed. COMPARISON: CR XR SHOULDER LT COMPLETE 2+V from 04/27/2024 FINDINGS: Bones: The last intervertebral disc space is designated the L5/S1 level for the numbering purpose of this examination. The vertebral body heights are well maintained. Alignment: Unremarkable. The marrow signal characteristics are unremarkable. Cord: The conus tip ends at the T12 level. It is of normal size and signal intensity. T12-L1: No focal disc herniation is present. No central spinal canal stenosis.No neural foraminal stenosis. L1-2: No focal disc herniation is present. No central spinal canal stenosis.No neural foraminal stenosis. L2-3: No focal disc herniation is present. No central spinal canal stenosis.No neural foraminal stenosis. L3-4: No focal disc herniation is present. No central spinal canal stenosis.No neural foraminal stenosis. L4-5: Mild loss of disc height. Partial disc desiccation. [id number] disc bulging. No significant central canal stenosis. Mild bilateral neural foraminal narrowing.. L5-S1: No focal disc herniation is present. No central spinal canal stenosis.No neural foraminal stenosis. The visualized SI joints and sacrum are unremarkable. Soft tissues: The paraspinal soft tissues are unremarkable. IMPRESSION: Moderate degenerative disc changes at L4-5 causing mild bilateral neural foraminal narrowing. No evidence of focal disc herniation or central canal stenosis. DATA REPOSITORY:
== END 2025-02-08 13:06 ==
LOC: DI 02-24 12:47
PROVIDERS: PCP Nurse Practitioner; Visit Provider Family Medicine
DX: M54.50 Low back pain, unspecified (principal); G89.29 Other chronic pain
CPT/HCPCS: 72148

== ENCOUNTER 2025-02-24 03:12 | Outpatient (CLI) | payer BC, SELFPAY ==
[2025-02-24] MEDS: Barium Sulfate 2% W/V-Berry Smoothie 450 ML BTL PO (07:13)
[2025-02-24] MEDS: Barium Sulfate 2% W/V-Creamy Vanilla Smoothie 450 ML BTL PO (07:14)
[2025-02-24] MEDS: Omnipaque 350 MG/ML 500 ML BTL-Imaging package IJ (09:18)
[2025-02-24] MEDS: Normal Saline - Diluent 50 ML VIAL IJ (09:18)
[2025-02-24] MEDS: Normal Saline Flush 10 ML SYR IVP (09:18)
--- NOTE | 2025-02-24 09:28 | DI.CT_ITS ---
Exam(s) CT CHEST/ABD/PEL W EXAM: CT CHEST/ABD/PEL W CLINICAL HISTORY: LT LUNG CA,ASSESS RESPONSE TO TREATMENT,C34.92 TECHNIQUE: Imaging Protocol: Axial computed tomography images with coronal and sagittal reformatted images were created and reviewed. Lung Computer Aided Detection (CAD) was utilized. CONTRAST MATERIAL: Intravenous: Omnipaque 350 contrast volume:100 mL Oral: Yes COMPARISON: CT CT CHEST/ABD/PEL W from 06/15/[address] CHEST/ABD/PEL W from 09/03/[address] CHEST/ABD/PEL W from 11/30/2024 FINDINGS: CHEST: Tracheobronchial tree: There is mild mucous plugging seen in the right lower lobe with associated mild atelectasis. No evidence of bronchiectasis. Pulmonary parenchyma: The linear infiltrate seen in the left upper lobe is unchanged. No acute focal consolidating infiltrates are seen. No new pulmonary nodules are identified. Visualized thyroid gland: Unremarkable. Mediastinum and Bryanna: No dominant adenopathy or fluid collection. The esophagus is unremarkable. Pleura: No effusion or pneumothorax. Heart: The heart is not dilated. Moderate three-vessel coronary artery calcification is present. No pericardial effusion. Pulmonary arteries: No pulmonary emboli are identified. Aorta: Thoracic aorta non-dilated. There is no evidence of dissection. Mild atherosclerotic calcification is present. Lymph nodes: Within normal limits. Soft tissues: Unremarkable. Bones:Within normal limits for the patient's age. No aggressive osseous lesions are identified. ABDOMEN: Liver: Normal density. No measurable mass. Portal, Superior Mesenteric, and Splenic Veins: Unremarkable. Gallbladder and Biliary Tract: No radiodense calculus or dilation. Pancreas: Normal density, no abnormal calcifications or inflammatory process. Spleen: Normal. Adrenals: No masses seen. Kidneys: Normal size, contour and axis. No radiodense stones or obstructive uropathy. Bilateral simple renal cysts. No follow-up is recommended. Abdominal Aorta: Abdominal portion non-dilated. Atherosclerotic calcification is present. Bowel: There is mild bowel wall thickening seen in the section descending colon. There is mild inflammatory stranding surrounding the loops and this may represent a colitis. There is no evidence of obstruction. This area was unremarkable on the examination from 2 months prior. Neoplasm is considered less likely. There is no evidence of appendicitis. No other areas of bowel wall thickening are seen. There is no evidence of bowel obstruction. Peritoneal Cavity: No ascites, collection or mesenteric inflammatory response. No free air. Lymph Nodes: Within normal limits. Bones: Within normal limits for the patient's age. Soft Tissues: Unremarkable. PELVIS: Bladder: Symmetric distention, no gross wall thickening. Reproductive Organs: Unremarkable as visualized. Lymph Nodes: Within normal limits. Bones: Within normal limits. IMPRESSION: 1. No evidence of abdominal or pelvic metastatic disease. 2. Mild thickening of the wall of the cyst segment of the descending colon. This may be due to underdistention. An infectious or inflammatory colitis cannot be excluded. Neoplasm is considered less likely. 3. Stable appearance of the chest. 4. No acute pulmonary process is present. RADIATION DOSE DELIVERED: 642.09mGy.cm Total DLP DATA REPOSITORY: All CT scans at this facility are submitted to the National Radiology Data Registry (NRDR) Dose Index Registry (DIR) with the [employer] ([employer]). RADIATION OPTIMIZATION: All CT scans at this facility use at least one of these dose optimization techniques: automated exposure control; mA and/or kV adjustment per patient size (includes targeted exams where dose is matched to clinical indication); or iterative reconstruction.
== END 2025-02-24 03:32 ==
LOC: DI 03:12
PROVIDERS: PCP Nurse Practitioner; Visit Provider Nurse Practitioner Family
DX: C34.92 Malignant neoplasm of unspecified part of left bronchus or lung (principal)
CPT/HCPCS: 74177; 71260

== ENCOUNTER 2025-03-01 15:56 | Outpatient (CLI) | payer BC, SELFPAY ==
[2025-03-01 11:33] LABS: Abs Immature Grans 0.04 10^3/uL (0.0-0.06); HCT 39.6 % (40.0-50.0); HGB 13.6 g/dL (13.5-17.5); Immature Grans % 0.3 %; MCH 33.7 pg (27.0-33.0); MCHC 34.3 % (32.0-36.0); MCV 98 fL (80-95); MPV 9.1 fL (8.0-11.0); Platelet Count 362 10^3/uL (130-400); RBC 4.03 10^6/uL (4.36-5.78); RDW 12.7 % (11.8-14.1); RDW-SD 45.9 fL; WBC 12.37 10^3/uL (4.4-10.8)
[2025-03-01 12:01] LABS: ALT 37 U/L (16-63); AST 26 U/L (15-37); Albumin 3.7 g/dL (3.4-5.0); Alkaline Phosphatase 61 U/L (46-116); Anion Gap 7.0 mmol/L (3-11); BUN 19 mg/dL (7-18); Bilirubin, Total 0.2 mg/dL (0.2-1.0); CO2 29.0 mmol/L (21.0-32.0); Calcium 9.6 mg/dL (8.5-10.1); Chloride 102 mmol/L (98-107); Estimated GFR 56.37 (mL/min/1.73m2); Glucose 111 mg/dL (74-106); Magnesium 2.0 mg/dL (1.8-2.4); Potassium 4.1 mmol/L (3.5-5.1); Sodium 138 mmol/L (136-145); TSH 0.61 uIU/mL (0.36-3.74); Total Protein 7.3 g/dL (6.4-8.2)
== END 2025-03-01 15:57 | disposition home or self-care (01) ==
LOC: LBO 15:56
PROVIDERS: PCP Nurse Practitioner; Visit Provider Nurse Practitioner Family
DX: Z79.899 Other long term (current) drug therapy (principal); C34.92 Malignant neoplasm of unspecified part of left bronchus or lung
CPT/HCPCS: 36415; 80053; 83735; 84439; 84443; 85025

== ENCOUNTER 2025-03-21 07:34 | Outpatient (CLI) | payer BC, SELFPAY ==
[2025-03-21 07:57] LABS: Abs Immature Grans 0.04 10^3/uL (0.0-0.06); HCT 37.8 % (40.0-50.0); HGB 13.0 g/dL (13.5-17.5); Immature Grans % 0.3 %; MCH 33.6 pg (27.0-33.0); MCHC 34.4 % (32.0-36.0); MCV 98 fL (80-95); MPV 8.8 fL (8.0-11.0); Platelet Count 311 10^3/uL (130-400); RBC 3.87 10^6/uL (4.36-5.78); RDW 13.1 % (11.8-14.1); RDW-SD 46.5 fL; WBC 12.67 10^3/uL (4.4-10.8)
[2025-03-21 08:29] LABS: ALT 28 U/L (16-63); AST 21 U/L (15-37); Albumin 3.9 g/dL (3.4-5.0); Alkaline Phosphatase 63 U/L (46-116); Anion Gap 7.8 mmol/L (3-11); BUN 16 mg/dL (7-18); Bilirubin, Total 0.3 mg/dL (0.2-1.0); CO2 28.2 mmol/L (21.0-32.0); Calcium 9.7 mg/dL (8.5-10.1); Chloride 102 mmol/L (98-107); Estimated GFR 61.23 (mL/min/1.73m2); Glucose 115 mg/dL (74-106); Magnesium 2.0 mg/dL (1.8-2.4); Potassium 4.0 mmol/L (3.5-5.1); Sodium 138 mmol/L (136-145); TSH 0.31 uIU/mL (0.36-3.74); Total Protein 7.4 g/dL (6.4-8.2)
== END 2025-03-21 07:35 | disposition home or self-care (01) ==
LOC: LBO 07:34
PROVIDERS: PCP Nurse Practitioner; Visit Provider Nurse Practitioner Family
DX: Z79.899 Other long term (current) drug therapy (principal); C34.92 Malignant neoplasm of unspecified part of left bronchus or lung
CPT/HCPCS: 36415; 80053; 83735; 84439; 84443; 85025

== ENCOUNTER 2025-04-11 03:34 | Outpatient (CLI) | payer BC, SELFPAY ==
[2025-04-11 13:12] LABS: Abs Immature Grans 0.05 10^3/uL (0.0-0.06); HCT 37.6 % (40.0-50.0); HGB 12.8 g/dL (13.5-17.5); Immature Grans % 0.4 %; MCH 33.7 pg (27.0-33.0); MCHC 34.0 % (32.0-36.0); MCV 99 fL (80-95); MPV 9.1 fL (8.0-11.0); Platelet Count 316 10^3/uL (130-400); RBC 3.80 10^6/uL (4.36-5.78); RDW 13.2 % (11.8-14.1); RDW-SD 47.8 fL; WBC 12.64 10^3/uL (4.4-10.8)
[2025-04-11 13:41] LABS: ALT 24 U/L (16-63); AST 19 U/L (15-37); Albumin 4.0 g/dL (3.4-5.0); Alkaline Phosphatase 61 U/L (46-116); Anion Gap 7.8 mmol/L (3-11); BUN 18 mg/dL (7-18); Bilirubin, Total 0.4 mg/dL (0.2-1.0); CO2 29.2 mmol/L (21.0-32.0); Calcium 9.4 mg/dL (8.5-10.1); Chloride 104 mmol/L (98-107); Estimated GFR 56.37 (mL/min/1.73m2); Glucose 104 mg/dL (74-106); Magnesium 2.2 mg/dL (1.8-2.4); Potassium 4.3 mmol/L (3.5-5.1); Sodium 141 mmol/L (136-145); TSH 0.14 uIU/mL (0.36-3.74); Total Protein 7.3 g/dL (6.4-8.2)
== END 2025-04-11 03:35 | disposition home or self-care (01) ==
PROVIDERS: PCP Nurse Practitioner; Visit Provider Nurse Practitioner Family
DX: Z79.899 Other long term (current) drug therapy (principal); C34.92 Malignant neoplasm of unspecified part of left bronchus or lung
CPT/HCPCS: 36415; 80053; 83735; 84439; 84443; 85025

== ENCOUNTER 2025-04-14 07:45 | Emergency (ER) | payer BC, SELFPAY ==
[2025-04-14 07:49] VITALS: BP 163/90; PULSE 117; RESP 18; TEMP 38.5; O2SAT 96
[2025-04-14 07:54] VITALS: BP 163/90; PULSE 117; RESP 18; TEMP 38.5; O2SAT 96
--- NOTE | 2025-04-14 08:00 | DI.US_ITS ---
Exam(s) US LOWER EXTREMITY VENOUS LT EXAM: US LOWER EXTREMITY VENOUS LT CLINICAL HISTORY: Redness, hx of cancer. TECHNIQUE: Lower extremity venous ultrasound performed using grayscale, color- flow, and spectral Doppler analysis. COMPARISON: No exams were available for comparison FINDINGS: The common femoral, femoral and popliteal veins demonstrate normal compressibility, augmentation, and color Doppler. The posterior tibial and peroneal veins are patent. No saphenous vein thrombosis or other superficial venous thrombosis is seen. No hematoma or Pool's cyst is seen. IMPRESSION: Negative lower extremity ultrasound. No evidence of DVT. DATA REPOSITORY:
--- NOTE | 2025-04-14 08:04 | ED.GENADUL_ITS ---
Discharge Plan Disposition Patient Disposition: Home Condition: Stable Discharge Details Clinical Impression: Cellulitis of left leg Primary Care Provider: Celeste Christiansen ED Provider: Susan Merino Home Meds and New Rx's Prescriptions: New cephalexin 500 mg tablet 500 mg PO BID 10 Days Qty: 20 0RF Rx Instructions: Take 1 tablet by mouth twice daily for the next 10 days No Action trazodone 50 mg tablet 50 mg PO QHS PRN (Reason: sleep) Qty: 90 3RF disulfiram 250 mg tablet 250 mg PO DAILY lorazepam 0.5 mg tablet 0.5 mg PO QHS PRN (Reason: anxiety) Qty: 30 5RF levothyroxine [Synthroid] 100 mcg tablet 100 mcg PO DAILY folic acid PO DAILY hydrocortisone [Cortef] 5 mg tablet 15 mg PO .AM Rx Instructions: and 1 tab in the afternoon cyclobenzaprine 10 mg tablet 10 mg PO HS PRN (Reason: muscle spasm) Qty: 90 1RF magnesium 250 mg tablet 250 mg PO DAILY acetaminophen 500 mg tablet 1,000 mg PO Q6H PRN methylphenidate HCl [Ritalin] 10 mg tablet 10 mg PO BID Rx Instructions: 20 mg AM, 10 mg afternoon albuterol sulfate 90 mcg/actuation HFA aerosol inhaler 2 puff IH Q6H PRN (Reason: shortness of breath or wheezing) Qty: 18 12RF bupropion HCl 150 mg tablet extended release 24 hr See Rx Instructions .ROUTE .COMPLEX Qty: 90 1RF Dose Instruction: TAKE ONE TABLET BY MOUTH EVERY MORNING Rx Instructions: TAKE ONE TABLET BY MOUTH EVERY MORNING hydrocortisone 5 mg tablet 5 mg PO .PM buspirone 10 mg tablet See Rx Instructions .ROUTE .COMPLEX Qty: 180 0RF Dose Instruction: TAKE TWO TABLETS BY MOUTH THREE TIMES A DAY Rx Instructions: TAKE TWO TABLETS BY MOUTH THREE TIMES A DAY Discharge Instructions Instructions: Cellulitis (Skin Infection), Adult ED Additional Instructions: No evidence of blood clot in your leg. It does appear you have an infection. Please take the antibiotics twice a next 10 days with yogurt or a probiotic. Follow up with primary care provider in 3-5 days. Return to ED sooner if any worsening redness after probiotic, fever, worsening feeling sicker at any time or concerns. Please take Tylenol or Ibuprofen with food every 4-6 hours as needed for pain and swelling. Referrals: [facility] [Provider Group] - 3 days Referral Note: ER follow-up Clinical Impression: Cellulitis of left leg Discharge Data Discharge Date/Time-TO BE ENTERED AT DEPARTURE: 04/14/25 10:30 HPI General Mode of arrival: ambulatory . Date/Time Provider Initiated Documentation: 04/14/25 07:50 . Limitations to Documentation: no limitations . Information obtained by: patient, RN notes reviewed and old records reviewed . HPI Narrative: 49-year-old male presents to the ER with a chief complaint of left lower extremity redness which he noticed yesterday. He excision of chemotherapy on Friday for stage IV colon cancer and reports that he just was not feeling well from a treatment. She does present febrile tachycardic. He does have a erythemic oral lower left extremity. Other past medical history includes ADD, hypertension anxiety disorder, asthma, history of alcohol dependency. Related Data Home Medications ?Medication ?Instructions ?Recorded ?Confirmed acetaminophen 500 mg tablet 1,000 mg PO Q6H PRN 03/16/25 levothyroxine 100 mcg tablet 100 mcg PO DAILY 02/18/23 03/16/25 (Synthroid) folic acid PO DAILY 08/18/23 03/16/25 methylphenidate HCl 10 mg tablet 10 mg PO BID 02/16/24 03/16/25 (Ritalin) trazodone 50 mg tablet 50 mg PO QHS PRN sleep #90 t abs 03/29/24 03/16/25 albuterol sulfate 90 mcg/actuation 2 puff inhalation Q 6H PRN 04/21/24 03/16/25 aerosol inhaler shortness of breath or wheez ing #18 grams cyclobenzaprine 10 mg tablet 10 mg PO HS PRN muscle sp asm #90 06/02/24 03/16/25 tabs hydrocortisone 5 mg tablet (Cortef) 15 mg PO .AM 06/0203/16/25 magnesium 250 mg tablet 250 mg PO DAILY 08/11/24 bupropion HCl 150 mg 24 hr tablet, See Rx Instructions .Route 12/06/24 03/16/25 extended release .COMPLEX #90 tabs disulfiram 250 mg tablet 250 mg PO DAILY 01/12/25 lorazepam 0.5 mg tablet 0.5 mg PO QHS PRN anxiety #3 0 tabs 01/12/25 03/16/25 hydrocortisone 5 mg tablet 5 mg PO .PM 02/09/25 buspirone 10 mg tablet See Rx Instructions .Route 1 .COMPLEX #180 tabs cephalexin 500 mg tablet 500 mg PO BID Cellulitis 10 days 04/14/25 #20 tabs Previous Rx's ?Medication ?Instructions ?Recorded trazodone 50 mg tablet 50 mg PO QHS PRN sleep #90 t abs 03/29/24 albuterol sulfate 90 mcg/actuation 2 puff inhalation Q 6H PRN 04/21/24 aerosol inhaler shortness of breath or wheez ing #18 grams cyclobenzaprine 10 mg tablet 10 mg PO HS PRN muscle sp asm #90 06/02/24 tabs bupropion HCl 150 mg 24 hr tablet, See Rx Instructions .Route 12/06/24 extended release .COMPLEX #90 tabs lorazepam 0.5 mg tablet 0.5 mg PO QHS PRN anxiety #3 0 tabs 01/12/25 buspirone 10 mg tablet See Rx Instructions .Route 1 .COMPLEX #180 tabs cephalexin 500 mg tablet 500 mg PO BID Cellulitis 10 days 04/14/25 #20 tabs Allergies Allergy/AdvReac Type Severity Reaction Status Date / Time sugammadex Allergy Severe welts on Verified 03/16/25 09:21 neck shoulders General Stated Complaint: Cellulitis TANG: 3 Review of Systems All systems reviewed & are unremarkable except as noted in HPI and below Integumentary/Breasts Skin/Breast: Reports as per HPI, Reports erythema, Reports skin pain and Reports skin swelling Exam Narrative Exam Narrative: Constitutional: Alert and oriented x3. Appears stated age. Normal body habitus. Head: Normocephalic, no trauma. Eyes: Pupils PERRL, Red reflex noted, EOM's intact. Eyelids symmetrical without lesions, discharge, or swelling. Chest: RRR, Normal S1, S2, distal pulses intact. Resp: Lungs clear to auscultation bilaterally, no wheezes, rales, or rhonchi. Abdomen: Soft, non-distended, Normoactive bowel sounds all 4 quads. Musculoskeletal: Normal gait, Moves all 4 extremities without difficulty. Neurologic: Cranial nerves II-XII intact. Alert and oriented x 3. Motor: No deficits noted. Sensory: Intact bilaterally all 4 extremities. Hematologic/Lymphatic: No ecchymosis, no lymphadenopathy. Resp Auscultation: clear to auscultation bilaterally Cardio Rate: tachycardic Rhythm: regular rhythm Heart Sounds: S1 normal and S2 normal Extrem Upper/lower leg/hip images: 2 1. Erythema warmth Course Vital Signs Vital signs: Vital Signs Temperature 38.5 C H 04/14/25 07:49 Pulse 117 H 04/14/25 07:49 Respiratory Rate 18 04/14/25 07:49 Blood Pressure 163/90 H 04/14/25 07:49 Pulse Oximetry 96 04/14/25 07:49 Temperature 38.5 C H 04/14/25 07:54 Temperature Source Temporal Artery Scan 04/14/25 07:54 Pulse 117 H 04/14/25 07:54 Respiratory Rate 18 04/14/25 07:54 Blood Pressure 163/90 H 04/14/25 07:54 Blood Pressure Position Sitting 04/14/25 07:54 Pulse Oximetry 96 04/14/25 07:54 Oxygen Delivery Method Room Air 04/14/25 07:54 Oxygen Flow Rate 0 04/14/25 07:54 Medical Decision Making 49-year-old male presents to the ER with a chief complaint of left lower extremity redness which he noticed yesterday. He excision of chemotherapy on Friday for stage IV colon cancer and reports that he just was not feeling well from a treatment. She does present febrile tachycardic. He does have a erythemic oral lower left extremity. Other past medical history includes ADD, hypertension anxiety disorder, asthma, history of alcohol dependency. Ordered CBC CMP lactate blood cultures x 2 ultrasound left lower extremity and 1 g of Tylenol. Differential diagnosis includes not limited to cellulitis, DVT, CBC shows leukocytosis with a white blood cell count of 17.38, sodium 131 creatinine 1.7. Rocephin 1 g IV piggyback ordered. Will place patient on cephalexin 500 mg twice a day for the next 10 days. Discussed home care and follow-up care he verbalized understanding. This text was generated using [employer] system, please disregard any oddities of phrase or misspellings. Lab Data Lab results reviewed: Yes I reviewed the patient's lab results. Labs: 04/14/25 08:20 Blood Blood Culture - Pending 04/14/25 08:26 Blood Blood Culture - Pending Laboratory Tests Range/Units 04/14/25 08:26 WBC (4.4-10.8) 10^3/uL 17.38 H RBC (4.36-5.78) 10^6/uL 4.17 L Hgb (13.5-17.5) g/dL 14.1 Hct (40.0-50.0) % 40.4 MCV (80-95) fL 97 H MCH (27.0-33.0) pg 33.8 H MCHC (32.0-36.0) % 34.9 RDW (11.8-14.1) % 13.7 Plt Count (130-400) 10^3/uL 262 MPV (8.0-11.0) fL 9.8 Immature Gran % % 0.7 Neutrophils % % 90.9 Lymphocytes % % 6.6 Monocytes % % 1.3 Eosinophils % % 0.0 Basophils % % 0.5 Nucleated RBC % (0.0-0.3) % 0.0 Absolute Neutrophils (1.2-6.7) 10^3/uL 15.80 H Absolute Lymphocytes (1.2-3.4) 10^3/uL 1.15 L Absolute Monocytes (0.1-0.8) 10^3/uL 0.23 Absolute Eosinophils (0.0-0.7) 10^3/uL 0.00 Absolute Basophils (0.0-0.2) 10^3/uL 0.09 RBC Morphology Normal VBG Lactate (<or=2.0) mmol/L 1.4 Sodium (136-145) mmol/L 131 L D Potassium (3.5-5.1) mmol/L 4.0 Chloride (98-107) mmol/L 94 L Carbon Dioxide (21.0-32.0) mmol/L 27.3 Anion Gap (3-11) mmol/L 9.7 BUN (7-18) mg/dL 17 Creatinine (0.70-1.30) mg/dL 1.7 H Est GFR (CKD-EPI 2020) (mL/min/1.73m2) 48.51 Glucose (74-106) mg/dL 103 Calcium (8.5-10.1) mg/dL 9.1 Total Bilirubin (0.2-1.0) mg/dL 0.4 AST (15-37) U/L 22 ALT (16-63) U/L 26 Alkaline Phosphatase (46-116) U/L 62 Total Protein (6.4-8.2) g/dL 7.3 Albumin (3.4-5.0) g/dL 3.3 L PFSH All Active Problems (Updated 04/14/25 @ 10:18 by Susan Merino NP) Cellulitis of left leg (Acute) Chronic low back pain (Chronic) 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 BPH w urinary obs/LUTS (Acute) Hypertension (Chronic) Arthritis of right glenohumeral joint (Acute) Arthritis of left glenohumeral joint (Acute) Hypophysitis (Acute[place] [facility] [place] 05/07/24 f/u ov 08/13/24 F/u Endo Secondary hypothy[place] (Acute[place] [facility] [place]23 Secondary adrenal insufficiency (Acute[place] [facility] [place] 04/15/23 08/13/24 F/u Endo Pituitary abnormality (Acute) [facility] [place] 04/15/23 Erectile dysfunction (Acute) 12[place]02/22 [facility] [place] Depression (Chronic) 12/02/22 [facility] [place] 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 Left upper lobe pulmonary nodule (Acute) 09/20/22 Thoracic Surgery Lymphadenopathy (Acute ~08/2022) 09/20/22 Dr Sanchez at Thoracic Hyperplastic colon polyp (Acute) GI bleed (Chronic) Acute anemia (Acute) Alcohol withdrawal (Acute) Cubital tunnel syndrome (Acute) Substance abuse (Acute 05/15/17) Medical History Abnormal blood creatinine level (~10/2022) Laceration Asthma Alcohol dependence Tobacco use disorder, continuous (06/17/17) MICHELLE (generalized anxiety disorder) (05/15/17) Family history of breast cancer (06/04/17) Mother Essential hypertension (05/15/17) Attention deficit disorder (05/15/17) Alcohol use disorder Attention deficit disorder (ADD) in adult Surgical History History of bronchoscopy (~09/26/22) Thoracic Surg History of colonoscopy (~12/2021) [place] [place] Family History Mother Depression Neoplasm Breast Father Alcohol abuse Essential hypertension Heart disease Brother Alcohol abuse Social History Smoking/Tobacco Use Status: Current every day Tobacco Type: cigarettes, e- cigarettes and smokeless tobacco Tobacco: How many years used: 30 Smokeless tobacco user: chewing tobacco Quit status: considering quitting Smoking risk assessment performed?: Yes Alcohol Intake: former Year quit: 2019 Drug use: Occasionally Substance use type: marijuana Household members: significant other Housing: apartment Number of Children: 1 Communication Needs: None current occupation: [employer] Pets and animals: Yes Sexually active: Yes Do you think of yourself as: straight/heterosexual Current gender identity: male What is your relationship status?: living with partner Panel score (0-1 are the most socially isolated patients): 1 What type of physical activity do you participate in: other Details: Work Frequency: 5-6 times per week Seatbelt use: always Helmet use: Yes Helmet use: always Drive intox or ride w/intox delivery truck driver heavy: No Working smoke detector in home: Yes Fire extinguisher in home: Yes Carbon monox detector in home: Yes Do you feel safe at home: Yes Do you feel safe in your relationship?: Yes
[2025-04-14] MEDS: ACETAMINOPHEN 1,000 MG/100 ML BAG 400 MG IVPB (08:35)
[2025-04-14 08:46] LABS: Abs Immature Grans 0.12 10^3/uL (0.0-0.06); HCT 40.4 % (40.0-50.0); HGB 14.1 g/dL (13.5-17.5); Immature Grans % 0.7 %; MCH 33.8 pg (27.0-33.0); MCHC 34.9 % (32.0-36.0); MCV 97 fL (80-95); MPV 9.8 fL (8.0-11.0); Platelet Count 262 10^3/uL (130-400); RBC 4.17 10^6/uL (4.36-5.78); RDW 13.7 % (11.8-14.1); RDW-SD 49.1 fL; WBC 17.38 10^3/uL (4.4-10.8)
[2025-04-14 08:57] LABS: ALT 26 U/L (16-63); AST 22 U/L (15-37); Albumin 3.3 g/dL (3.4-5.0); Alkaline Phosphatase 62 U/L (46-116); Anion Gap 9.7 mmol/L (3-11); BUN 17 mg/dL (7-18); Bilirubin, Total 0.4 mg/dL (0.2-1.0); CO2 27.3 mmol/L (21.0-32.0); Calcium 9.1 mg/dL (8.5-10.1); Chloride 94 mmol/L (98-107); Estimated GFR 48.51 (mL/min/1.73m2); Glucose 103 mg/dL (74-106); Potassium 4.0 mmol/L (3.5-5.1); Sodium 131 mmol/L (136-145); Total Protein 7.3 g/dL (6.4-8.2)
[2025-04-14 09:33] VITALS: BP 123/75; PULSE 99; RESP 20; TEMP 37.7; O2SAT 98
[2025-04-14 09:52] LABS: RBC Morphology Normal
[2025-04-14] MEDS: cefTRIAXone 1 GM/50 ML BAG IVPB (10:13)
== END 2025-04-14 10:30 | disposition home or self-care (01) ==
PROVIDERS: Emergency Provider Registered Nurse Emergency; PCP Nurse Practitioner
DX: L03.116 Cellulitis of left lower limb (principal)
CPT/HCPCS: 36415; 80053; 87040; 96365; 96366; 96367; 99284; 83605; 85025; 93971; J0131; J0696

== ENCOUNTER 2025-04-18 12:23 | Emergency (ER) | payer BC, SELFPAY ==
[2025-04-18 12:26] VITALS: BP 151/78; PULSE 110; RESP 18; TEMP 36.7; O2SAT 98
--- NOTE | 2025-04-18 14:00 | DI.RAD_ITS ---
Exam(s) XR TIB/FIB LT EXAM: XR TIB/FIB LT CLINICAL HISTORY: eval osteo. TECHNIQUE: 2D digital imaging was performed. Two views. COMPARISON: No exams were available for comparison FINDINGS: BONES: No acute fracture is present. No bony destructive lesion is seen. Visualized portion of knee and ankle joints are unremarkable. SOFT TISSUE: Use subcutaneous edema. No foreign body or abnormal gas collection. IMPRESSION: Significant diffuse soft tissue swelling of the left lower leg. No evidence of fracture or osteomyelitis. No foreign body. DATA REPOSITORY: RADIATION DOSE DELIVERED:
--- NOTE | 2025-04-18 14:12 | W.ED.GENAD ---
Discharge Plan Disposition Patient Disposition: Home Condition: Stable Discharge Details Clinical Impression: Cellulitis of left leg Primary Care Provider: Celeste Christiansen ED Provider: Radha Suh Home Meds and New Rx's Prescriptions: New clindamycin HCl [Cleocin HCl] 150 mg capsule 450 mg PO TID 10 Days Qty: 90 0RF Discontinued cephalexin 500 mg tablet 500 mg PO BID 10 Days Qty: 20 0RF Rx Instructions: Take 1 tablet by mouth twice daily for the next 10 days No Action trazodone 50 mg tablet 50 mg PO QHS PRN (Reason: sleep) Qty: 90 3RF disulfiram 250 mg tablet 250 mg PO DAILY lorazepam 0.5 mg tablet 0.5 mg PO QHS PRN (Reason: anxiety) Qty: 30 5RF levothyroxine [Synthroid] 100 mcg tablet 100 mcg PO DAILY folic acid PO DAILY hydrocortisone [Cortef] 5 mg tablet 15 mg PO .AM Rx Instructions: and 1 tab in the afternoon cyclobenzaprine 10 mg tablet 10 mg PO HS PRN (Reason: muscle spasm) Qty: 90 1RF magnesium 250 mg tablet 250 mg PO DAILY acetaminophen 500 mg tablet 1,000 mg PO Q6H PRN methylphenidate HCl [Ritalin] 10 mg tablet 10 mg PO BID Rx Instructions: 20 mg AM, 10 mg afternoon albuterol sulfate 90 mcg/actuation HFA aerosol inhaler 2 puff IH Q6H PRN (Reason: shortness of breath or wheezing) Qty: 18 12RF bupropion HCl 150 mg tablet extended release 24 hr See Rx Instructions .ROUTE .COMPLEX Qty: 90 1RF Dose Instruction: TAKE ONE TABLET BY MOUTH EVERY MORNING Rx Instructions: TAKE ONE TABLET BY MOUTH EVERY MORNING hydrocortisone 5 mg tablet 5 mg PO .PM buspirone 10 mg tablet See Rx Instructions .ROUTE .COMPLEX Qty: 180 0RF Dose Instruction: TAKE TWO TABLETS BY MOUTH THREE TIMES A DAY Rx Instructions: TAKE TWO TABLETS BY MOUTH THREE TIMES A DAY Discharge Instructions Instructions: Cellulitis (Skin Infection), Adult ED Additional Instructions: You were seen in the emergency department today for evaluation of worsening swelling in your left lower extremity. In our department a full physical examination performed, had reassuring laboratory studies and an x-ray that does not show spread of the infection to any of the bones or deeper structures of your leg. Based on your laboratory studies and your pain, things are starting to improve, but as it has progressed in terms of the swelling it is reasonable to broaden your antibiotic. Please stop taking the cephalexin, and start taking clindamycin, 3 times per day. You will take this medicine until you are reevaluated by your primary care provider at your scheduled appointment. Please continue to maintain good hydration and nutrition, and while taking the clindamycin I do recommend that you eat a yogurt with live active cultures or take a probiotic once per day. You should return to the emergency department immediately if you develop fever or chills or any worsening of your symptoms. Your blood cultures as of today have been negative, we will contact you with any growth of bacteria from your blood sample at your initial visit. Thank you for allowing us to be part of your care. Discharge Data Discharge Date/Time-TO BE ENTERED AT DEPARTURE: 04/18/25 15:41 HPI General Mode of arrival: ambulatory. Date/Time Provider Initiated Documentation: 04/18/25 12:51. Limitations to Documentation: no limitations. Information obtained by: patient, family and old records reviewed. HPI Narrative: This is a 49-year-old male patient with a past medical history significant for stage IV lung cancer on chemotherapy, last round 1 week ago, presenting for evaluation of worsening left lower extremity cellulitis. The patient was seen in our emergency department 4 days ago, had cellulitic changes of the left lower extremity, had a leukocytosis and a negative DVT ultrasound, and was started on cephalexin. He has been taking this medication as prescribed, and states that his redness and swelling has not improved, and if anything is getting slightly worse. He states that the discomfort is significantly improved. He had blood cultures at that time which are no growth to date. He denies fevers or chills, nausea or vomiting, numbness or tingling distal to the infection. Otherwise has been in his normal state of health. Related Data Home Medications ?Medication ?Instructions ?Recorded ?Confirmed acetaminophen 500 mg tablet 1,000 mg PO Q6H PRN 09/30/22 04/18/25 levothyroxine 100 mcg tablet 100 mcg PO DAILY 02/18/23 04/18/25 (Synthroid) folic acid PO DAILY 08/18/23 03/16/25 methylphenidate HCl 10 mg tablet 10 mg PO BID 02/16/24 04/18/25 (Ritalin) trazodone 50 mg tablet 50 mg PO QHS PRN sleep #90 tabs 03/29/24 04/18/25 albuterol sulfate 90 mcg/actuation 2 puff inhalation Q6H PRN 04/21/24 04/18/25 aerosol inhaler shortness of breath or wheezing #18 grams cyclobenzaprine 10 mg tablet 10 mg PO HS PRN muscle spasm #90 06/02/24 04/18/25 tabs hydrocortisone 5 mg tablet (Cortef) 15 mg PO .AM 06/02/24 04/18/25 magnesium 250 mg tablet 250 mg PO DAILY 08/11/24 04/18/25 bupropion HCl 150 mg 24 hr tablet, See Rx Instructions .Route 12/06/24 04/18/25 extended release .COMPLEX #90 tabs disulfiram 250 mg tablet 250 mg PO DAILY 01/12/25 04/18/25 lorazepam 0.5 mg tablet 0.5 mg PO QHS PRN anxiety #30 tabs 01/12/25 04/18/25 hydrocortisone 5 mg tablet 5 mg PO .PM 02/09/25 04/18/25 buspirone 10 mg tablet See Rx Instructions .Route 03/30/25 04/18/25 .COMPLEX #180 tabs clindamycin HCl 150 mg capsule 450 mg (3 x 150 mg) PO TID 10 days 04/18/25 (Cleocin HCl) #90 caps Previous Rx's ?Medication ?Instructions ?Recorded trazodone 50 mg tablet 50 mg PO QHS PRN sleep #90 tabs 03/29/24 albuterol sulfate 90 mcg/actuation 2 puff inhalation Q6H PRN 04/21/24 aerosol inhaler shortness of breath or wheezing #18 grams cyclobenzaprine 10 mg tablet 10 mg PO HS PRN muscle spasm #90 06/02/24 tabs bupropion HCl 150 mg 24 hr tablet, See Rx Instructions .Route 12/06/24 extended release .COMPLEX #90 tabs lorazepam 0.5 mg tablet 0.5 mg PO QHS PRN anxiety #30 tabs 01/12/25 buspirone 10 mg tablet See Rx Instructions .Route 03/30/25 .COMPLEX #180 tabs clindamycin HCl 150 mg capsule 450 mg (3 x 150 mg) PO TID 10 days 04/18/25 (Cleocin HCl) #90 caps Allergies Allergy/AdvReac Type Severity Reaction Status Date / Time sugammadex Allergy Severe welts on Verified 04/18/25 12:30 neck shoulders General Stated Complaint: Recheck TANG: 4 Exam Narrative Exam Narrative: Gen: Awake and alert, in no apparent distress HEENT: Non-icteric sclera Neck: Supple Lungs: No apparent respiratory distress, normal respiratory effort. CV: Appears well perfused, strong distal pulses, heart with mildly tachycardic rate but regular rhythm Abdomen: Non-distended MSK: Moves 4 extremities without apparent limitation in ROM. The left lower extremity has anterior redness, induration, and swelling from the knee to the ankle. Mild edema of the left foot, DP pulse is strong and easily palpable. Full range of motion and sensation of the foot and toes distal to the swelling. No palpable fluctuance or visible drainage Skin: Visualized skin without rashes, cyanosis except as noted above Neuro: Normal Gait, no obvious focal deficits or facial asymmetry. Speaks in full, clear sentences. Psych: Appropriate for situation. Course Vital Signs Vital signs: Vital Signs Temperature 36.7 C 04/18/25 12: Pulse 110 H 04/18/25 12:26 Respiratory Rate 18 04/18/25 12: Blood Pressure 151/78 H 04/18/25 12:26 Pulse Oximetry 98 04/18/25 12: Temperature 36.7 C 04/18/25 12: Pulse 110 H 04/18/25 12:26 Respiratory Rate 18 04/18/25 12:26 Blood Pressure 151/78 H 04/18/25 12:26 Pulse Oximetry 98 04/18/25 12:26 Oxygen Delivery Method Room Air 04/18/25 12: Oxygen Flow Rate 0 04/18/25 12:26 Pain Level 0 04/18/25 12:26 Medical Decision Making This is a 49-year-old male patient presenting for evaluation of worsening left lower extremity redness and swelling. My differential includes but is not limited to worsening cellulitis, certainly considered deep space infection such as osteomyelitis and abscess. The patient's DVT study was -4 days ago, and he has no evidence for arterial disease or phlegmasia on my physical examination. The patient does have some tachycardia but no fever or bacteremia on his recent blood cultures to significantly increase my concern for sepsis. We will obtain repeat laboratory studies to include CBC, CMP, magnesium, CRP, and ESR. Obtain an x-ray to evaluate for osteomyelitis. - X-ray with diffuse soft tissue swelling consistent with cellulitis but no evidence osteomyelitis or other osseous abnormalities. Laboratory studies show an improvement in his leukocytosis, stable anemia and no thrombocytopenia. Chemistry panel without electrolyte derangements, kidney function is at his baseline and there is no evidence of liver pathology. The CRP is slightly elevated to 4.9, ESR to 29. I had an extended shared decision making conversation with this patient regarding his risk factors, including immunosuppression, though there are number of reassuring features of his workup and exam here today. The patient is desiring to trial broadening of outpatient antibiosis, which I do not think is unreasonable as he is able to easily return to care if things worsen, has been afebrile, and has had negative blood cultures to date. I will provide him with clindamycin to cover both staph and strep species. At this time, the patient has had a full medical evaluation and is safe for discharge to home. They are hemodynamically stable, ambulatory, and tolerating PO. They are understanding of the follow-up plan and return precautions. They left our facility without incident. 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 BPH w urinary obs/LUTS (Acute) Hypertension (Chronic) Arthritis of right glenohumeral joint (Acute) Arthritis of left glenohumeral joint (Acute) Hypophysitis (Acute) [facility]o [place] 04/15/23 05/07/24 f/u ov 08/13/24 F/u Endo Secondary hypothyroidism (Acute) [facility] [place] Endo Note 04/15/23 Secondary adrenal insufficiency (Acute) [facility] [place] Endo Note 04/15/23 08/13/24 F/u Endo Pituitary abnormality (Acute) [facility] [place] Endo note 04/15/23 Erectile dysfunction (Acute) 12/02/22 [facility] [place] Hem/Onc note Depression (Chronic) 12/02/22 [facility] Hem/Onc note 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 Left upper lobe pulmonary nodule (Acute) 09/20/22 Thoracic Surgery Lymphadenopathy (Acute ~08/2022) 09/20/22 Dr Sanchez at Thoracic Hyperplastic colon polyp (Acute) GI bleed (Chronic) Acute anemia (Acute) Alcohol withdrawal (Acute) Cubital tunnel syndrome (Acute) Substance abuse (Acute 05/15/17) Medical History Abnormal blood creatinine level (~10/2022) Laceration Asthma Alcohol dependence Tobacco use disorder, continuous (06/17/17) MICHELLE (generalized anxiety disorder) (05/15/17) Family history of breast cancer (06/04/17) Mother Essential hypertension (05/15/17) Attention deficit disorder (05/15/17) Alcohol use disorder Attention deficit disorder (ADD) in adult Surgical History History of bronchoscopy (~09/26/22) Thoracic Surg History of colonoscopy (~12/2021) 10/11/22-[facility] [place] colo. Family History Mother Depression Neoplasm Breast Father Alcohol abuse Essential hypertension Heart disease Brother Alcohol abuse Social History Smoking/Tobacco Use Status: Current every day Tobacco Type: cigarettes, e-cigarettes and smokeless tobacco Tobacco: How many years used: 30 Smokeless tobacco user: chewing tobacco Quit status: considering quitting Smoking risk assessment performed?: Yes Alcohol Intake: former Year quit: 2019 Drug use: Occasionally Substance use type: marijuana Household members: significant other Housing: apartment Number of Children: 1 Communication Needs: None current occupation: [employer] Pets and animals: Yes Sexually active: Yes Do you think of yourself as: straight/heterosexual Current gender identity: male What is your relationship status?: living with partner Panel score (0-1 are the most socially isolated patients): 1 What type of physical activity do you participate in: other Details: Work Frequency: 5-6 times per week Seatbelt use: always Helmet use: Yes Helmet use: always Drive intox or ride w/intox armored car guard and driver: No Working smoke detector in home: Yes Fire extinguisher in home: Yes Carbon monox detector in home: Yes Do you feel safe at home: Yes Do you feel safe in your relationship?: Yes
[2025-04-18 15:02] LABS: Abs Immature Grans 0.04 10^3/uL (0.0-0.06); HCT 34.8 % (40.0-50.0); HGB 12.0 g/dL (13.5-17.5); Immature Grans % 0.6 %; MCH 33.1 pg (27.0-33.0); MCHC 34.5 % (32.0-36.0); MCV 96 fL (80-95); MPV 9.3 fL (8.0-11.0); Platelet Count 213 10^3/uL (130-400); RBC 3.62 10^6/uL (4.36-5.78); RDW 12.8 % (11.8-14.1); RDW-SD 45.7 fL; WBC 6.38 10^3/uL (4.4-10.8)
[2025-04-18 15:05] VITALS: BP 162/85; PULSE 102; RESP 22; O2SAT 96
[2025-04-18 15:09] LABS: ESR 29 mm/hr (0-15)
[2025-04-18 15:15] LABS: ALT 47 U/L (16-63); AST 30 U/L (15-37); Albumin 3.4 g/dL (3.4-5.0); Alkaline Phosphatase 63 U/L (46-116); Anion Gap 9.4 mmol/L (3-11); BUN 20 mg/dL (7-18); Bilirubin, Total 0.4 mg/dL (0.2-1.0); C-Reactive Protein 4.90 mg/dL (<or=0.5); CO2 29.6 mmol/L (21.0-32.0); Calcium 9.4 mg/dL (8.5-10.1); Chloride 99 mmol/L (98-107); Estimated GFR 56.37 (mL/min/1.73m2); Glucose 93 mg/dL (74-106); Magnesium 2.2 mg/dL (1.8-2.4); Potassium 3.7 mmol/L (3.5-5.1); Sodium 138 mmol/L (136-145); Total Protein 7.9 g/dL (6.4-8.2)
[2025-04-18 15:39] VITALS: BP 173/99; PULSE 83; RESP 18; O2SAT 96
== END 2025-04-18 15:41 | disposition home or self-care (01) ==
PROVIDERS: Emergency Provider Emergency Medicine; PCP Nurse Practitioner
DX: L03.116 Cellulitis of left lower limb (principal)
CPT/HCPCS: 99284 ×2; 36415; 80053; 85652; 73590; 83735; 85025; 86140

== ENCOUNTER 2025-05-02 03:47 | Outpatient (CLI) | payer BC, SELFPAY ==
[2025-05-02 11:34] LABS: Abs Immature Grans 0.05 10^3/uL (0.0-0.06); HCT 39.4 % (40.0-50.0); HGB 13.2 g/dL (13.5-17.5); Immature Grans % 0.4 %; MCH 33.4 pg (27.0-33.0); MCHC 33.5 % (32.0-36.0); MCV 100 fL (80-95); MPV 8.8 fL (8.0-11.0); Platelet Count 361 10^3/uL (130-400); RBC 3.95 10^6/uL (4.36-5.78); RDW 13.3 % (11.8-14.1); RDW-SD 49.1 fL; WBC 13.36 10^3/uL (4.4-10.8)
[2025-05-02 11:59] LABS: ALT 31 U/L (16-63); AST 21 U/L (15-37); Albumin 3.8 g/dL (3.4-5.0); Alkaline Phosphatase 70 U/L (46-116); Anion Gap 10.1 mmol/L (3-11); BUN 19 mg/dL (7-18); Bilirubin, Total 0.5 mg/dL (0.2-1.0); CO2 27.9 mmol/L (21.0-32.0); Calcium 9.7 mg/dL (8.5-10.1); Chloride 101 mmol/L (98-107); Glucose 98 mg/dL (74-106); Magnesium 2.0 mg/dL (1.8-2.4); Potassium 3.8 mmol/L (3.5-5.1); Sodium 139 mmol/L (136-145); TSH 1.75 uIU/mL (0.36-3.74); Total Protein 7.7 g/dL (6.4-8.2)
== END 2025-05-02 03:48 | disposition home or self-care (01) ==
LOC: LBO 03:47
PROVIDERS: Visit Provider Nurse Practitioner Family
DX: Z79.899 Other long term (current) drug therapy (principal); C34.92 Malignant neoplasm of unspecified part of left bronchus or lung
CPT/HCPCS: 36415; 80053; 83735; 84439; 84443; 85025

== ENCOUNTER 2025-05-12 13:25 | Emergency (ER) | payer BC, SELFPAY ==
[2025-05-12 13:25] VITALS: BP 166/92; PULSE 96; RESP 16; TEMP 36.9; O2SAT 99
[2025-05-12 13:34] VITALS: BP 166/92; PULSE 96; RESP 16; TEMP 36.9; O2SAT 99
--- NOTE | 2025-05-12 13:48 | DI.CT_ITS ---
Exam(s) CT LOWER EXTREMITY LT W EXAM: CT LOWER EXTREMITY LT W CLINICAL HISTORY: recurrent leg inftn, L lat mall pain, lung ca. TECHNIQUE: Imaging Protocol: Axial computed tomography images with coronal and sagittal reformatted images were created and reviewed. CONTRAST MATERIAL: Intravenous: Omnipaque 350 Contrast volume:100 ml Contrast route:IV - COMPARISON: No exams were available for comparison FINDINGS: Bones: There is no evidence of fracture or dislocation. No osteomyelitic changes are identified. No lytic or sclerotic lesions are identified. Joints: Knee: No evidence of joint effusion. There is no significant joint space narrowing. No significant periarticular spurring. Ankle: No significant degenerative changes. Foot: [id number] degenerative changes of the 1st MTP joint. Soft Tissues: Edema in the subcutaneous fat. No focal hematoma, abscess or drainable collection. No abnormality is identified within the musculature. The tendons appear grossly intact. Vasculature: Mild scattered atherosclerotic calcifications along the distal superficial femoral artery and popliteal artery. No significant stenosis. The vessels appear patent through the level of the foot. IMPRESSION: Soft tissue edema. No abscess or drainable collection. No bony abnormality. RADIATION DOSE DELIVERED: Total DLP DATA REPOSITORY: All CT scans at this facility are submitted to the National Radiology Data Registry (NRDR) Dose Index Registry (DIR) with the [employer] ([employer]). RADIATION OPTIMIZATION: All CT scans at this facility use at least one of these dose optimization techniques: automated exposure control; mA and/or kV adjustment per patient size (includes targeted exams where dose is matched to clinical indication); or iterative reconstruction.
[2025-05-12 14:19] LABS: Abs Immature Grans 0.02 10^3/uL (0.0-0.06); HCT 33.9 % (40.0-50.0); HGB 11.5 g/dL (13.5-17.5); Immature Grans % 0.3 %; MCH 33.5 pg (27.0-33.0); MCHC 33.9 % (32.0-36.0); MCV 99 fL (80-95); MPV 9.5 fL (8.0-11.0); Platelet Count 159 10^3/uL (130-400); RBC 3.43 10^6/uL (4.36-5.78); RDW 12.3 % (11.8-14.1); RDW-SD 44.7 fL; WBC 5.90 10^3/uL (4.4-10.8)
[2025-05-12 14:27] LABS: ESR 31 mm/hr (0-15)
[2025-05-12 14:36] LABS: ALT 23 U/L (10-49); AST 31 U/L (<34); Albumin 4.6 g/dL (3.4-5.0); Alkaline Phosphatase 64 U/L (46-116); Anion Gap 7.5 mmol/L (3-11); BUN 21 mg/dL (9-23); Bilirubin, Total 0.40 mg/dL (0.2-1.2); CO2 27.5 mmol/L (20.0-31.0); Calcium 9.4 mg/dL (8.3-10.6); Chloride 102 mmol/L (98-107); Glucose 92 mg/dL (74-106); Potassium 3.8 mmol/L (3.5-5.1); Sodium 137 mmol/L (136-145); Total Protein 7.4 g/dL (5.7-8.2)
[2025-05-12 14:38] LABS: C-Reactive Protein < 0.50 mg/dL (<=0.50)
[2025-05-12] MEDS: Normal Saline Flush 10 ML SYR IVP (14:57)
[2025-05-12] MEDS: Omnipaque 350 MG/ML 100 ML BTL IJ (14:58)
[2025-05-12] MEDS: Normal Saline - Diluent 50 ML VIAL IJ (14:58)
[2025-05-12 16:07] VITALS: BP 148/87; PULSE 85; TEMP 36.8; O2SAT 97
--- NOTE | 2025-05-16 21:30 | W.ED.GENAD ---
Discharge Plan Disposition Patient Disposition: Home Condition: Stable Discharge Details Clinical Impression: Cellulitis Primary Care Provider: Jose Hull ED Provider: Brenna Brown Home Meds and New Rx's Prescriptions: New cephalexin 500 mg capsule 500 mg PO Q6H 7 Days Qty: 28 0RF Continued trazodone 50 mg tablet 50 mg PO QHS PRN (Reason: sleep) Qty: 90 3RF lorazepam 0.5 mg tablet 0.5 mg PO QHS PRN (Reason: anxiety) Qty: 30 5RF sulfamethoxazole-trimethoprim [Bactrim DS] 800-160 mg tablet 1 tab PO BID Qty: 20 0RF levothyroxine [Synthroid] 100 mcg tablet 100 mcg PO DAILY folic acid 1 tab PO DAILY hydrocortisone [Cortef] 5 mg tablet 15 mg PO .AM Rx Instructions: and 1 tab in the afternoon cyclobenzaprine 10 mg tablet 10 mg PO HS PRN (Reason: muscle spasm) Qty: 90 1RF magnesium 250 mg tablet 250 mg PO DAILY acetaminophen 500 mg tablet 1,000 mg PO Q6H PRN methylphenidate HCl [Ritalin] 10 mg tablet 10 mg PO BID Rx Instructions: 20 mg AM, 10 mg afternoon bupropion HCl 150 mg tablet extended release 24 hr See Rx Instructions .ROUTE .COMPLEX Qty: 90 1RF Dose Instruction: TAKE ONE TABLET BY MOUTH EVERY MORNING Rx Instructions: TAKE ONE TABLET BY MOUTH EVERY MORNING hydrocortisone 5 mg tablet 5 mg PO .PM buspirone 10 mg tablet See Rx Instructions .ROUTE .COMPLEX Qty: 180 0RF Dose Instruction: TAKE TWO TABLETS BY MOUTH THREE TIMES A DAY Rx Instructions: TAKE TWO TABLETS BY MOUTH THREE TIMES A DAY albuterol sulfate 90 mcg/actuation HFA aerosol inhaler 2 puff IH Q6H PRN (Reason: shortness of breath or wheezing) Qty: 18 12RF amlodipine 10 mg tablet 10 mg PO DAILY Patient Comments: TAKE ONE TABLET BY MOUTH EVERY DAY Discharge Instructions Instructions: Cellulitis (Skin Infection), Adult ED Additional Instructions: Use compression stockings on the left leg Take the antibiotics as prescribed, add Keflex on your regimen It will likely be 2-3 more days before you notice any difference, if you develop a fever or worsening pain or spreading redness, please return for reassessment You may also benefit from an ultrasound if this is persistent but your CAT scan is quite reassuring recheck with pcp on friday Stand Alone Forms: Portal Information Discharge Data Discharge Date/Time-TO BE ENTERED AT DEPARTURE: 05/12/25 16:13 HPI General Date/Time Provider Initiated Documentation: 05/12/25 13:40. HPI Narrative: This 49-year-old male presents with left lower extremity redness and swelling. It has several days. Started on Bactrim. Suspect patient's INR is on the same thinks it might be slightly worse. He states this has happened once before after chemotherapy for lung cancer. He denies any fever or chills. He does state he did get effect from Bactrim last time. He denies history of deep vein thrombosis in the past. He denies any chest pain or any shortness of breath. He has been compliant with his Bactrim per patient. Related Data Home Medications Medication Instructions Recorded Confirmed acetaminophen 500 mg tablet 1,000 mg PO Q6H PRN 09/30/22 05/12/25 levothyroxine 100 mcg tablet 100 mcg PO DAILY 02/18/23 05/12/25 (Synthroid) folic acid 1 tab PO DAILY 08/18/23 05/12/25 methylphenidate HCl 10 mg tablet 10 mg PO BID 02/16/24 05/12/25 (Ritalin) trazodone 50 mg tablet 50 mg PO QHS PRN sleep #90 tabs 03/29/24 05/12/25 cyclobenzaprine 10 mg tablet 10 mg PO HS PRN muscle spasm #90 06/02/24 05/12/25 tabs hydrocortisone 5 mg tablet (Cortef) 15 mg PO .AM 06/02/24 05/12/25 magnesium 250 mg tablet 250 mg PO DAILY 08/11/24 05/12/25 bupropion HCl 150 mg 24 hr tablet, See Rx Instructions .Route 12/06/24 05/12/25 extended release .COMPLEX #90 tabs lorazepam 0.5 mg tablet 0.5 mg PO QHS PRN anxiety #30 tabs 01/12/25 05/12/25 hydrocortisone 5 mg tablet 5 mg PO .PM 02/09/25 05/12/25 buspirone 10 mg tablet See Rx Instructions .Route 05/03/25 05/12/25 .COMPLEX #180 tabs albuterol sulfate 90 mcg/actuation 2 puff inhalation Q6H PRN 05/09/25 05/12/25 aerosol inhaler shortness of breath or wheezing #18 grams sulfamethoxazole 800 1 tab PO BID #20 tabs 05/10/25 05/12/25 mg-trimethoprim 160 mg tablet (Bactrim DS) amlodipine 10 mg tablet 10 mg PO DAILY 05/12/25 05/12/25 cephalexin 500 mg capsule 500 mg PO Q6H 7 days #28 caps 05/12/25 Previous Rx's Medication Instructions Recorded trazodone 50 mg tablet 50 mg PO QHS PRN sleep #90 tabs 03/29/24 cyclobenzaprine 10 mg tablet 10 mg PO HS PRN muscle spasm #90 06/02/24 tabs bupropion HCl 150 mg 24 hr tablet, See Rx Instructions .Route 12/06/24 extended release .COMPLEX #90 tabs lorazepam 0.5 mg tablet 0.5 mg PO QHS PRN anxiety #30 tabs 01/12/25 buspirone 10 mg tablet See Rx Instructions .Route 05/03/25 .COMPLEX #180 tabs albuterol sulfate 90 mcg/actuation 2 puff inhalation Q6H PRN 05/09/25 aerosol inhaler shortness of breath or wheezing #18 grams sulfamethoxazole 800 1 tab PO BID #20 tabs 05/10/25 mg-trimethoprim 160 mg tablet (Bactrim DS) cephalexin 500 mg capsule 500 mg PO Q6H 7 days #28 caps 05/12/25 Allergies Allergy/AdvReac Type Severity Reaction Status Date / Time sugammadex Allergy Severe welts on Verified 05/12/25 13:30 neck shoulders General Stated Complaint: Cellulitis TANG: 3 Exam Narrative Exam Narrative: Alert and oriented 49-year-old male in no acute distress, mild's pink discoloration approximately 8 inch on the brice, 1+ edema, no calf swelling or tenderness, distal pulses intact, lateral malleolus tenderness No lymphangitis no respiratory distress cardiac rate rhythm regular no systemic signs of illness Course Vital Signs Vital signs: Vital Signs Temperature 36.9 C 05/12/25 13:25 Pulse 96 H 05/12/25 13:25 Respiratory Rate 16 05/12/25 13:25 Blood Pressure 166/92 H 05/12/25 13:25 Pulse Oximetry 99 05/12/25 13:25 Temperature 36.8 C 05/12/25 16:07 Temperature Source Tympanic 05/12/25 16:07 Pulse 85 05/12/25 16:07 Respiratory Rate 16 05/12/25 13:34 Blood Pressure 148/87 H 05/12/25 16:07 Blood Pressure Mean 107 05/12/25 16:07 Blood Pressure Position Sitting 05/12/25 13:34 Pulse Oximetry 97 05/12/25 16:07 Oxygen Delivery Method Room Air 05/12/25 16:07 Oxygen Flow Rate 0 05/12/25 16:07 Pain Level 0 05/12/25 16:07 Lab/Test Results Lab/Test Results: Laboratory Tests Range/Units 05/12/25 14:05 WBC (4.4-10.8) 10^3/uL 5.90 RBC (4.36-5.78) 10^6/uL 3.43 L Hgb (13.5-17.5) g/dL 11.5 L Hct (40.0-50.0) % 33.9 L MCV (80-95) fL 99 H MCH (27.0-33.0) pg 33.5 H MCHC (32.0-36.0) % 33.9 RDW (11.8-14.1) % 12.3 Plt Count (130-400) 10^3/uL 159 MPV (8.0-11.0) fL 9.5 Immature Gran % % 0.3 Neutrophils % % 51.7 Lymphocytes % % 35.6 Monocytes % % 10.7 Eosinophils % % 1.2 Basophils % % 0.5 Nucleated RBC % (0.0-0.3) % 0.0 Absolute Neutrophils (1.2-6.7) 10^3/uL 3.05 Absolute Lymphocytes (1.2-3.4) 10^3/uL 2.10 Absolute Monocytes (0.1-0.8) 10^3/uL 0.63 Absolute Eosinophils (0.0-0.7) 10^3/uL 0.07 Absolute Basophils (0.0-0.2) 10^3/uL 0.03 ESR (0-15) mm/hr 31 H Sodium (136-145) mmol/L 137 Potassium (3.5-5.1) mmol/L 3.8 Chloride (98-107) mmol/L 102 Carbon Dioxide (20.0-31.0) mmol/L 27.5 Anion Gap (3-11) mmol/L 7.5 BUN (9-23) mg/dL 21 Creatinine (0.73-1.18) mg/dL 1.7 H Est GFR (CKD-EPI 2020) (mL/min/1.73m2) 41.61 Glucose (74-106) mg/dL 92 Calcium (8.3-10.6) mg/dL 9.4 Total Bilirubin (0.2-1.2) mg/dL 0.40 AST (<34) U/L 31 ALT (10-49) U/L 23 Alkaline Phosphatase (46-116) U/L 64 C-Reactive Protein (<=0.50) mg/dL < 0.50 Total Protein (5.7-8.2) g/dL 7.4 Albumin (3.4-5.0) g/dL 4.6 Medical Decision Making Results: CT of lower extremity ordered secondary to cancer history of recurrent possible cellulitis does not show evidence of malignancy or additional pathology Assessment and plan: Patient likely with cellulitis, no leukocytosis with ESR of 31 9 creatinine 1.7 baseline per patient lower suspicion for DVT although if patient does not have improvement he will need a DVT study, encouraged recheck in 48 hours. I did review his ultrasound from [facility] which did not show evidence of acute abnormality. Patient is otherwise nontoxic and will need close outpatient reassessment and he had Keflex added to his regiment. 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 BPH w urinary obs/LUTS (Acute) Hypertension (Chronic) Arthritis of right glenohumeral joint (Acute) Arthritis of left glenohumeral joint (Acute) Hypophysitis (Acute) [facility] [place] 05/07/24 f/u ov 08/13/24 F/u Endo Secondary hypothyroidism (Acute) [facility] [place]/15[place]23 Secondary adrenal insufficiency (Acute) [facility] [place] 04/15/23 08/13/24 F/u Endo Pituitary abnormality (Acute) [facility] [place] 04/15/23 Erectile dysfunction (Acute) 12/02/22 [facility] [place] Depression (Chronic) 12/02/22 [facility] [place] 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 Left upper lobe pulmonary nodule (Acute) 09/20/22 Thoracic Surgery Lymphadenopathy (Acute ~08/2022) 09/20/22 Dr Sanchez at Thoracic Hyperplastic colon polyp (Acute) GI bleed (Chronic) Acute anemia (Acute) Alcohol withdrawal (Acute) Cubital tunnel syndrome (Acute) Substance abuse (Acute 05/15/17) Medical History Abnormal blood creatinine level (~10/2022) Laceration Asthma Alcohol dependence Tobacco use disorder, continuous (06/17/17) MICHELLE (generalized anxiety disorder) (05/15/17) Family history of breast cancer (06/04/17) Mother Essential hypertension (05/15/17) Attention deficit disorder (05/15/17) Alcohol use disorder Attention deficit disorder (ADD) in adult Surgical History History of bronchoscopy (~09/26/22) Thoracic Surg History of colonoscopy (~12/2021) [place] [place]. Family History Mother Depression Neoplasm Breast Father Alcohol abuse Essential hypertension Heart disease Brother Alcohol abuse Social History Smoking/Tobacco Use Status: Current every day Tobacco Type: cigarettes, e-cigarettes and smokeless tobacco Tobacco: How many years used: 30 Smokeless tobacco user: chewing tobacco Quit status: considering quitting Smoking risk assessment performed?: Yes Alcohol Intake: former Year quit: 2019 Drug use: Occasionally Substance use type: marijuana Household members: significant other Housing: apartment Number of Children: 1 Communication Needs: None current occupation: [employer] Pets and animals: Yes Sexually active: Yes Do you think of yourself as: straight/heterosexual Current gender identity: male What is your relationship status?: living with partner Panel score (0-1 are the most socially isolated patients): 1 What type of physical activity do you participate in: other Details: Work Frequency: 5-6 times per week Seatbelt use: always Helmet use: Yes Helmet use: always Drive intox or ride w/intox ambulance driver: No Working smoke detector in home: Yes Fire extinguisher in home: Yes Carbon monox detector in home: Yes Do you feel safe at home: Yes Do you feel safe in your relationship?: Yes
== END 2025-05-12 16:13 | disposition home or self-care (01) ==
PROVIDERS: Emergency Provider Physician Assistant
DX: L03.116 Cellulitis of left lower limb (principal)
CPT/HCPCS: 99284; 99285; 80053; 85652; 73701; 85025; 86140; J3490

== ENCOUNTER → 2025-05-16 01:30 | Outpatient (CLI) | payer BC, SELFPAY ==
[2025-05-16] MEDS: Barium Sulfate 2% W/V-Berry Smoothie 450 ML BTL PO ×2 (08:21→08:23)
[2025-05-16] MEDS: Omnipaque 350 MG/ML 100 ML BTL IJ ×2 (10:10→10:26)
[2025-05-16] MEDS: Normal Saline - Diluent 50 ML VIAL IJ ×2 (10:10→10:27)
[2025-05-16] MEDS: Normal Saline Flush 10 ML SYR IVP (10:10)
--- NOTE | 2025-05-16 10:27 | DI.CT_ITS ---
Exam(s) CT CHEST/ABD/PEL W EXAM: CT CHEST/ABD/PEL W CLINICAL HISTORY: stage 4 lung cancer C34.92 assess response to treatment. TECHNIQUE: Imaging Protocol: Axial computed tomography images with coronal and sagittal reformatted images were created and reviewed. Computer aided detection (CAD) was utilized. CONTRAST MATERIAL: Intravenous: Omnipaque 350 Contrast volume:75 mL Oral: yes / COMPARISON: CT CT CHEST/ABD/PEL W from 06/04/[address] CHEST/ABD/PEL W from 02/24/2025 FINDINGS: CHEST: Pulmonary parenchyma: No consolidation. Stable linear scarring in the left upper lobe. No dominant measurable mass. Mild emphysematous changes. There are 2 new nodules seen at the posterior left lung base measuring 3 millimeters. Tracheobronchial tree: No bronchiectasis. No mucous plugging.No bronchial wall thickening. Pleura: No effusion or pneumothorax. Mediastinum: Within normal limits. Pulmonary arteries: No visible emboli. Cardiovascular: Heart size. Coronary artery calcifications. No pericardial effusion. Thoracic aorta non-dilated. Bones: Unremarkable for age. No lytic or blastic lesions. No compression fractures. Soft tissues: Unremarkable. ABDOMEN and PELVIS: Liver: Normal density. No suspicious mass. Gallbladder and biliary tract: No evidence of stones or wall thickening. No biliary dilatation. Pancreas: Normal density, no abnormal calcifications or inflammatory process. Spleen: Normal. Kidneys: Normal size, contour and axis. No radiodense stones. No obstructive uropathy. Bilateral simple. No suspicious masses seen. Adrenal glands: No masses seen. Aorta: Abdominal portion non-dilated. Lymph nodes: Within normal limits. Soft tissues: Unremarkable. Bladder: Unremarkable. Mild sigmoid diverticulosis. Bowel: No obstruction or bowel wall thickening. Peritoneal cavity: No ascites. No focal collection. No mesenteric inflammatory response. No free air. Bones: Unremarkable for age. Reproductive organs: Unremarkable for age. IMPRESSION: Two new nodules measuring 3 millimeters located in the posterior left lower lobe. Stable left upper lobe scarring. No acute abnormality in the abdomen or pelvis. RADIATION DOSE DELIVERED: 662.07mGy.cm Total DLP DATA REPOSITORY: All CT scans at this facility are submitted to the National Radiology Data Registry (NRDR) Dose Index Registry (DIR) with the [employer] (ACR). RADIATION OPTIMIZATION: All CT scans at this facility use at least one of these dose optimization techniques: automated exposure control; mA and/or kV adjustment per patient size (includes targeted exams where dose is matched to clinical indication); or iterative reconstruction.
== END ==
LOC: DI 01:30
PROVIDERS: Visit Provider Nurse Practitioner Family
DX: C34.92 Malignant neoplasm of unspecified part of left bronchus or lung (principal)
CPT/HCPCS: 74177; 71260; J3490

== ENCOUNTER 2025-05-23 09:48 | Outpatient (CLI) | payer BC, SELFPAY ==
[2025-05-23 09:02] LABS: Abs Immature Grans 0.03 10^3/uL (0.0-0.06); HCT 36.1 % (40.0-50.0); HGB 12.1 g/dL (13.5-17.5); Immature Grans % 0.4 %; MCH 33.5 pg (27.0-33.0); MCHC 33.5 % (32.0-36.0); MCV 100 fL (80-95); MPV 8.4 fL (8.0-11.0); Platelet Count 319 10^3/uL (130-400); RBC 3.61 10^6/uL (4.36-5.78); RDW 12.9 % (11.8-14.1); RDW-SD 47.7 fL; WBC 7.67 10^3/uL (4.4-10.8)
[2025-05-23 09:23] LABS: Magnesium 1.7 mg/dL (1.6-2.6)
[2025-05-23 09:24] LABS: ALT 18 U/L (10-49); AST 22 U/L (<34); Albumin 4.2 g/dL (3.4-5.0); Alkaline Phosphatase 57 U/L (46-116); Anion Gap 4.1 mmol/L (3-11); BUN 15 mg/dL (9-23); Bilirubin, Total 0.20 mg/dL (0.2-1.2); CO2 28.9 mmol/L (20.0-31.0); Calcium 9.0 mg/dL (8.3-10.6); Chloride 106 mmol/L (98-107); Glucose 71 mg/dL (74-106); Potassium 3.6 mmol/L (3.5-5.1); Sodium 139 mmol/L (136-145); Total Protein 6.9 g/dL (5.7-8.2)
[2025-05-23 09:25] LABS: TSH 0.36 uIU/mL (0.55-4.78)
== END 2025-05-23 09:49 | disposition home or self-care (01) ==
LOC: LBO 09:51
PROVIDERS: Visit Provider Nurse Practitioner Family
DX: Z79.899 Other long term (current) drug therapy (principal); C34.92 Malignant neoplasm of unspecified part of left bronchus or lung
CPT/HCPCS: 36415; 80053; 83735; 84439; 84443; 85025

== ENCOUNTER → 2025-06-08 00:05 | Outpatient (CLI) | payer BC, SELFPAY ==
--- NOTE | 2025-06-08 06:30 | DI.RAD_ITS ---
Exam(s) RF JOINT INJ. FLUORO GUID RAD EXAM: RF JOINT INJ. FLUORO GUID RAD CLINICAL HISTORY: Left shoulder pain,FLUORO GUIDED INJECTION,ARTHRITIS LT GLENOHUMERAL JOINT. TECHNIQUE: 2D and realtime digital imaging was performed. CONTRAST MATERIAL: Intra-articular Omnipaque 300-1.5 cc COMPARISON: No exams were available for comparison were reviewed. FINDINGS: This fluoroscopic guided glenohumeral joint injection was performed at the request of the referring orthopedic surgeon. The patient was consented prior to this procedure. The patient was placed in the supine position on the fluoroscopy table. Using sterile technique and adequate skin-subcutaneous anesthesia, fluoroscopic guidance was used to advance a 22 gauge spinal needle into the glenohumeral joint using an anterior approach. Intra-articular position was confirmed with 1.5 cc Omnipaque 300 and thereafter a sterile solution of 40 milligram Depo- Medrol and 3 cc bupivacaine 0.25 percent was injected into the joint space. The indwelling needle was removed and a Band-Aid applied. The patient tolerated this procedure well and there were no intraprocedural complications. IMPRESSION: Successful fluoroscopic guided left shoulder glenohumeral joint steroid injection. RADIATION DOSE DELIVERED: Ka,r=1.97mGy
--- NOTE | 2025-06-08 06:45 | DI.RAD_ITS ---
Exam(s) RF JOINT INJ. FLUORO GUID RAD EXAM: RF JOINT INJ. FLUORO GUID RAD CLINICAL HISTORY: bilt shoulder pain,ARTHRITIS RT GLENOHUMERAL JOINT, FLUORO GUIDED INJ. TECHNIQUE: 2D and realtime digital imaging was performed. CONTRAST MATERIAL: Omnipaque 300-1.5 cc intra-articular COMPARISON: No exams were available for comparison FINDINGS: This fluoroscopic guided glenohumeral joint injection was performed at the request of the referring orthopedic surgeon. The patient was consented prior to this procedure. The patient was placed in the supine position on the fluoroscopy table. Using sterile technique and adequate skin-subcutaneous anesthesia, fluoroscopic guidance was used to advance a 22 gauge spinal needle into the glenohumeral joint using an anterior approach. Intra-articular position was confirmed with 1.5 cc Omnipaque 300 and thereafter a sterile solution of 40 milligram Depo- Medrol and 3 cc bupivacaine 0.25 percent was injected into the joint space. The indwelling needle was removed and a Band-Aid applied. The patient tolerated this procedure well and there were no intraprocedural complications. IMPRESSION: Successful fluoroscopic guided right shoulder glenohumeral joint steroid injection. RADIATION DOSE DELIVERED: Ka,r=2.35mGy
[2025-06-08] MEDS: methylPREDNISolone ACETATE 40 MG/ML VIAL IM (09:59)
[2025-06-08] MEDS: Lidocaine 1% Pres-Free 30 ML VIAL IJ (10:01)
[2025-06-08] MEDS: Omnipaque 300 MG/ML 10 ML BTL IJ (10:03)
[2025-06-08] MEDS: Bupivacaine 0.25% Pres-Free 10 ML VIAL IJ (10:04)
== END ==
LOC: DI 00:05
PROVIDERS: Visit Provider Student in an Organized Health Care Education/Training Program
DX: M19.012 Primary osteoarthritis, left shoulder (principal); M19.011 Primary osteoarthritis, right shoulder
CPT/HCPCS: 20610; 77002; J0665; J1010